=== PATIENT | female | born 1970 | race Caucasian/White ===

== ENCOUNTER 2017-01-26 19:18 | Emergency (ER) | payer BC ==
[2017-01-26] MEDS ORDERED: Ketorolac 60 MG/2 ML SDV IM ONE (19:37)
--- NOTE | 2017-01-26 19:42 | EDM.PDOC ---
ED HPI GENERAL MEDICAL PROBLEM - General Chief Complaint: Lower Extremity Injury/Pain Stated Complaint: PT HURT RT ANKLE Time Seen by Provider: 01/26/17 19:21 Source of Information: Reports: Patient History Limitations: Reports: No Limitations - History of Present Illness INITIAL COMMENTS - FREE TEXT/NARRATIVE: HISTORY AND PHYSICAL: History of present illness: Patient is a 46 show female who presents to the emergency room with complaints of right ankle pain. Review of systems: As per history of present illness and below otherwise all systems reviewed and negative. Past medical history: As per history of present illness and as reviewed below otherwise noncontributory. Surgical history: As per history of present illness and as reviewed below otherwise noncontributory. Social history: No reported history of drug or alcohol abuse. Family history: As per history of present illness and as reviewed below otherwise noncontributory. Physical exam: HEENT: Atraumatic, normocephalic, pupils reactive, negative for conjunctival pallor or scleral icterus, mucous membranes moist, throat clear, neck supple, nontender, trachea midline. Lungs: Clear to auscultation, breath sounds equal bilaterally, chest nontender. Heart: S1S2, regular, negative for clicks, rubs, or JVD. Abdomen: Soft, nondistended, nontender. Negative for masses or hepatosplenomegaly. Negative for costovertebral tenderness. Pelvis: Stable nontender. Genitourinary: Deferred. Rectal: Deferred. Extremities: Soft tissue swelling noted to the medial and lateral right ankle. Strong pedal pulse. Capillary refill is less than 3 seconds. Positive CMS. No foot drop. Negative for cords or calf pain. Neurovascular unremarkable. Neuro: Awake, alert, oriented. Cranial nerves II through XII unremarkable. Cerebellum unremarkable. Motor and sensory unremarkable throughout. Exam nonfocal. Patient has a transverse nondisplaced fracture seen through the distal tip of the fibula with correlated soft tissue swelling. Patient states she does have crutches at home, and will bring them in from the truck. Instructed patient to use a Cam Walker boot into a [id number] and use the crutches as directed. Will prescribe Woodbury 08/12/24 that she may take as needed for pain. Instructed her to follow-up with an orthopedist in the next week or so. Patient voices understanding and is agreeable to plan of care. Denies any further questions at this Diagnostics: X-ray right ankle Therapeutics: Toradol Impression: Distal fibula fracture Plan: 1. Please where the Cam Walker boot and use the crutches as directed. Rest, ice , elevate throughout the day. 2. Please take the Woodbury as directed, this may cause slight drowsiness so do not take it while driving or needing to be functioning at work. He may take Tylenol and/or ibuprofen for breakthrough pain. 3. Follow-up with Orthopedist in the next week. Return to the ED as needed as discussed. Definitive disposition and diagnosis as appropriate pending reevaluation and review of above. Onset: Today Right Ankle Pain Score (Numeric/FACES): 8 - Related Data Allergies Allergy/AdvReac Type Severity Reaction Status Date / Time No Known Allergies Allergy Verified 01/03/15 12:06 Home Meds: Home Meds Pantoprazole Sodium 40 mg PO DAILY 03/15/14 [History] Magnesium Hydroxide [Milk of Magnesia] 1 dose PO PRN 01/03/15 [History] Acetaminophen/HYDROcodone [Woodbury 325-10 MG] 1 - 2 tab PO Q4H PRN #80 tablet [Rx] Celecoxib 200 mg PO DAILY #60 capsule 01/09/15 [Rx] Docusate Sodium [Colace] 100 mg PO BID #60 cap 01/09/15 [Rx] Gabapentin [Neurontin] 300 mg PO BEDTIME #30 cap 01/09/15 [Rx] Rivaroxaban [Xarelto] 10 mg PO DAILY #12 tablet 01/09/15 [Rx] traMADol [Ultram] 100 mg PO Q6H PRN #80 tablet 01/09/15 [Rx] Past Medical History Other Respiratory History: Reports 20 yr history of smoking, current use 1/2 pack per day Other Dermatologic History: "Something on top of Right foot unsure if eczema or what" - Past Surgical History Other GI Surgeries/Procedures: Gastric Bypass, Lap Kathryn Other Musculoskeletal Surgeries/Procedures:: 2 knee arthroscopies, Repair meniscus or meniscectomy Rt, Right Total Knee Replacement, REvision Right Knee Replacement 05/2014 Social & Family History - Tobacco Use Smoking Status *Q: Current Every Day Smoker Years of Tobacco use: 20 Packs/Tins Daily: 0.5 Used Tobacco, but Quit: No Second Hand Smoke Exposure: No - Alcohol Use Days Per Week of Alcohol Use: 7 Number of Drinks Per Day: 1 Total Drinks Per Week: 7 - Recreational Drug Use Recreational Drug Use: No Drug Use in Last 12 Months: No Review of Systems - Review of Systems Review Of Systems: ROS reveals no pertinent complaints other than HPI. ED EXAM, GENERAL - Physical Exam Exam: See Below (See dictation) Course - Vital Signs Last Recorded V/S: Last Vital Signs Temp 36.8 C 01/26/17 19:34 Pulse 80 01/26/17 19:34 Resp 18 01/26/17 19:34 BP 179/90 H 01/26/17 19:34 Pulse Ox 98 01/26/17 19:34 - Orders/Labs/Meds Orders: Active Orders 24 hr Category Date Time Status Ankle Min 3V Rt [CR] Stat Exams 01/26/17 19:36 Taken DME for Discharge [COMM] Stat Oth 01/26/17 20:44 Ordered Meds: Medications Discontinued Medications Generic Name Dose Route Start Last Admin Trade Name Nell PRN Reason Stop Dose Admin Ketorolac Tromethamine 60 mg 01/26/17 19:37 01/26/17 19:43 Toradol IM 01/26/17 19:38 60 mg ONETIME ONE Administration Departure - Departure Time of Disposition: 20:46 Disposition: Home, Self-Care 01 Clinical Impression: Fibula fracture Qualifiers: Encounter type: initial encounter Fibula location: distal Fracture type: closed Fracture morphology: unspecified fracture morphology Laterality: right Qualified Code(s): S82.831A - Other fracture of upper and lower end of right fibula, initial encounter for closed fracture - Discharge Information Referrals: PCP,None [Primary Care Provider] - Forms: ED Department Discharge Additional Instructions: My general discharge The following information is given to patients seen in the emergency department who are being discharged to home. This information is to outline your options for follow-up care. We provide all patients seen in our emergency department with a follow-up referral. The need for follow-up, as well as the timing and circumstances, are variable depending upon the specifics of your emergency department visit. If you don't have a primary care physician on staff, we will provide you with a referral. We always advise you to contact your personal physician following an emergency department visit to inform them of the circumstance of the visit and for follow-up with them and/or the need for any referrals to a consulting specialist. The emergency department will also refer you to a specialist when appropriate. This referral assures that you have the opportunity for follow-up care with a specialist. All of these measure are taken in an effort to provide you with optimal care, which includes your follow-up. Under all circumstances we always encourage you to contact your private physician who remains a resource for coordinating your care. When calling for follow-up care, please make the office aware that this follow-up is from your recent emergency room visit. If for any reason you are refused follow-up, please contact the [facility] Emergency Department at and asked to speak to the emergency department charge nurse. [facility] [address], [address] [place] [address] 1. Please where the Cam Walker boot and use the crutches as directed. Rest, ice , elevate throughout the day. 2. Please take the [place] as directed, this may cause slight drowsiness so do not take it while driving or needing to be functioning at work. He may take Tylenol and/or ibuprofen for breakthrough pain. 3. Follow-up with Orthopedist in the next week for your ankle injury. Follow-up with the primary care provider in the next 1-2 days, you should have your blood pressure reevaluated. Return to the ED as needed as discussed. - My Orders Last 24 Hours: My Active Orders 01/26/17 19:36 Ankle Min 3V Rt [CR] Stat 01/26/17 20:44 DME for Discharge [COMM] Stat - Assessment/Plan Last 24 Hours: My Active Orders 01/26/17 19:36 Ankle Min 3V Rt [CR] Stat 01/26/17 20:44 DME for Discharge [COMM] Stat
[2017-01-26 21:53] VITALS: BP 185/85
--- NOTE | 2017-01-27 10:34 | CR ---
EXAM DATE: 01/26/17 PATIENT'S AGE: 46 Patient: LUISA HODGES Facility: [place], [place] Site . Site : 1970 Study: XRay Extremity ankle [id number] 8:04:39 PM Ordering Physician: Doctor Collier Final Report: HISTORY: Injury. FINDINGS: Three views of the right ankle demonstrates soft tissue swelling most prominent over the distal fibula. There is a transverse nondisplaced fracture seen through the inferior tip of the fibula. There are tiny well corticated ossific density is seen in part to the distal fibula and medial malleolus. These do not have the appearance of acute fracture fragments. The mortise and talar dome are intact. There is traction spurs at the plantar and Achilles aspect of calcaneus. Base of the 5th metatarsal is intact. IMPRESSION: 1. Transverse nondisplaced fracture seen through the distal tip of the fibula with adjacent soft tissue swelling. 2. Small well corticated ossific densities are seen inferior to the distal fibula and medial malleolus. These do not have the appearance of acute fracture fragment. Dictated by Norma Parnell MD @ 01/26/2017 8:32:10 PM Dictated by: Norma Parnell MD @ 01/26/2017 20:32:19 (Electronic Signature) Report Signed by Proxy. NILE
== END 2017-01-26 21:02 | disposition home or self-care (01) ==
LOC: MW.ED 19:18
DX: S82.831A Other fracture of upper and lower end of right fibula, initial encounter for closed fracture (principal); F17.210 Nicotine dependence, cigarettes, uncomplicated; Z96.651 Presence of right artificial knee joint; Z79.899 Other long term (current) drug therapy; X58.XXXA Exposure to other specified factors, initial encounter
CPT/HCPCS: 73610; 96372; 99283; J1885

== ENCOUNTER 2018-09-15 19:54 | Emergency (ER) | payer BC ==
--- NOTE | 2018-09-15 20:39 | EDM.PDOC ---
ED HPI GENERAL MEDICAL PROBLEM - General Chief Complaint: General Stated Complaint: PAIN LFT SIDE, COUGHING Time Seen by Provider: 09/15/18 20:36 - History of Present Illness INITIAL COMMENTS - FREE TEXT/NARRATIVE: HISTORY AND PHYSICAL: History of present illness: The patient is a 47-year-old female with a history of hypertension and pulmonary disease for which she uses a daily inhaler as well as has a rescue inhaler, the name of her chronic respiratory problem she is unaware of, who presents with cough on and off for several weeks sometimes spastic and not using any rescue inhaler. The patient says the cough is usually happy and occasionally productive of phlegm but there is no fever chills chest pain abdominal pain nausea vomiting or diarrhea. The patient denies . She says that she is here because she was coughing this evening at about 7 PM, about 2 hours ago, when she felt a sharp pain in her left rib area and she thought something popped. She says that she was getting pain in that particular area over the last 1-2 days but it became more severe with the coughing episode. She said that over the last few days every time she coughed she would feel pain in that location but it seemed to accelerate dramatically at 7 PM with the coughing fit. She did not take any medications for this pain prior to coming to the ED Patient ate and drank normally today and had no fevers or chills. She has no anterior left chest pain Review of systems: As per history of present illness and below otherwise all systems reviewed and negative. Past medical history: As per history of present illness and as reviewed below otherwise noncontributory. Surgical history: As per history of present illness and as reviewed below otherwise noncontributory. Social history: No reported history of drug or alcohol abuse. Family history: As per history of present illness and as reviewed below otherwise noncontributory. Physical exam: General: Well-developed well-nourished female who is nontoxic and vital signs are noted by me. She ambulated into the ED with a walker which she usually does not use but has at home due to knee problems and did not require assistance. When I ask her why she was using it she said that she felt like she could lean on it because she was concerned about the pain in her left side and being steady with walking. Patient's eyes were slightly injected HEENT: Atraumatic, normocephalic, negative for conjunctival pallor or scleral icterus, mucous membranes moist, throat clear, neck supple, nontender, trachea midline. Lungs: Clear to auscultation but very diminished in the bases bilaterally and not very open on area exchange but no wheezing or stridor or work of breathing, breath sounds equal bilaterally, chest wall on the left anterior axillary line in the lower ribs has a screw tenderness with palpation without defects deformities or crepitus. On palpation I can exactly reproduce the pain. Heart: S1S2, regular rate and rhythm no overt murmurs Abdomen: Soft, nondistended, nontender. Negative for masses or hepatosplenomegaly. NABS Pelvis: Stable nontender. Genitourinary: Deferred. Rectal: Deferred. Extremities: Atraumatic, negative for cords or calf pain. Neurovascular unremarkable. No pedal edema or leg asymmetry Neuro: Awake, alert, oriented. Cranial nerves II through XII unremarkable. Cerebellum unremarkable. Motor and sensory unremarkable throughout. Exam nonfocal. Diagnostics: Left ribs with chest x-ray, CBC CMP alcohol level EKG Therapeutics: IV fluids duo neb Solu-Medrol Toradol morphine potassium by mouth Impression: Persistent coughing/reactive airway disease equivalent, left chest wall pain strain, mild hypokalemia and recent alcohol use Definitive disposition and diagnosis as appropriate pending reevaluation and review of above. Left Chest Pain Score (Numeric/FACES): 9 - Related Data Allergies Allergy/AdvReac Type Severity Reaction Status Date / Time No Known Allergies Allergy Verified 09/15/18 20:17 Home Meds: Home Meds Glycopyrrolate/Formoterol Fum [Bevespi Aerosphere Inhaler] 1 puff ASDIRECTED [History] Lisinopril/Hydrochlorothiazide [Lisinopril-Hctz 20-12.5 mg Tab] 1 each PO DAILY 04/06/18 [History] Past Medical History HEENT History: Reports: None Cardiovascular History: Reports: Hypertension Other Respiratory History: Reports 20 yr history of smoking, current use 1/2 pack per day Gastrointestinal History: Reports: None Genitourinary History: Reports: None [employer] History: Reports: None Neurological History: Reports: None Endocrine/Metabolic History: Reports: None Other Dermatologic History: "Something on top of Right foot unsure if eczema or what" - Past Surgical History Other GI Surgeries/Procedures: Gastric Bypass, Lap Kathryn Female Surgical History: Reports: None Other Musculoskeletal Surgeries/Procedures:: 2 knee arthroscopies, Repair meniscus or meniscectomy Rt, Right Total Knee Replacement, REvision Right Knee Replacement 05/2014 Social & Family History - Family History Family Medical History: Noncontributory - Tobacco Use Smoking Status *Q: Current Every Day Smoker Years of Tobacco use: 30 Packs/Tins Daily: 0.5 - Caffeine Use Caffeine Use: Reports: Coffee - Alcohol Use Days Per Week of Alcohol Use: 7 Number of Drinks Per Day: 1 Total Drinks Per Week: 7 - Recreational Drug Use Recreational Drug Use: No ED ROS GENERAL - Review of Systems Review Of Systems: ROS reveals no pertinent complaints other than HPI. ED EXAM, GENERAL - Physical Exam Exam: See Below (See dictation) Course - Vital Signs Last Recorded V/S: Last Vital Signs Temp 35.6 C 09/15/18 20:11 Pulse 75 09/15/18 22:07 Resp 15 09/15/18 22:07 BP 120/69 09/15/18 22:07 Pulse Ox 96 09/15/18 22:07 - Orders/Labs/Meds Orders: Active Orders 24 hr Category Date Time Status Communication Order [RC] STAT Care 09/15/18 22:17 Ordered EKG Documentation Completion [RC] STAT Care 09/15/18 21:05 Active RT Aerosol Therapy [RC] ASDIRECTED Care 09/15/18 20:46 Active Sodium Chloride 0.9% [Saline Flush] Med 09/15/18 20:46 Active 10 ml FLUSH ASDIRECTED PRN Sodium Chloride 0.9% [Saline Flush] Med 09/15/18 20:46 Active 2.5 ml FLUSH ASDIRECTED PRN Saline Lock Insert [OM.PC] Stat Oth 09/15/18 20:45 Ordered Medication Orders Sodium Chloride (Saline Flush) 10 ml FLUSH ASDIRECTED PRN PRN Reason: Keep Vein Open Sodium Chloride (Saline Flush) 2.5 ml FLUSH ASDIRECTED PRN PRN Reason: Keep Vein Open Labs: Laboratory Tests 09/15/18 09/15/18 Range/Units 20:59 20:59 WBC 11.01 H (4.0-11.0) K/uL RBC 4.43 (4.30-5.90) M/uL Hgb 13.1 (12.0-16.0) g/dL Hct 38.7 (36.0-46.0) % MCV 87.4 (80.0-98.0) fL MCH 29.6 (27.0-32.0) pg MCHC 33.9 (31.0-37.0) g/dL RDW Std Deviation 55.3 (28.0-62.0) fl RDW Coeff of [place] 18 H (11.0-15.0) % Plt Count 323 (150-400) K/uL MPV 9.40 (7.40-12.00) fL Neut % (Auto) 61.5 (48.0-80.0) % Lymph % (Auto) 32.7 (16.0-40.0) % [place] % (Auto) 2.8 (0.0-15.0) % Eos % (Auto) 2.5 (0.0-7.0) % Baso % (Auto) 0.5 (0.0-1.5) % Neut # (Auto) 6.8 H (1.4-5.7) K/uL Lymph # (Auto) 3.6 H (0.6-2.4) K/uL [place] # (Auto) 0.3 (0.0-0.8) K/uL Eos # (Auto) 0.3 (0.0-0.7) K/uL Baso # (Auto) 0.1 (0.0-0.1) K/uL Nucleated RBC % 0.0 /100WBC Nucleated RBCs # 0 K/uL Sodium 130 L (136-145) mmol/L Potassium 2.9 L (3.5-5.1) mmol/L Chloride 93 L (98-107) mmol/L Carbon Dioxide 24.9 (21.0-32.0) mmol/L BUN 4 L (7.0-18.0) mg/dL Creatinine 0.6 (0.6-1.0) mg/dL Est Cr Clr Drug Dosing 95.88 mL/min Estimated GFR (MDRD) > 60.0 ml/min Glucose 111 H (74-106) mg/dL Calcium 9.1 (8.5-10.1) mg/dL Total Bilirubin 0.3 (0.2-1.0) mg/dL AST 84 H (15-37) IU/L ALT 92 H (14-63) IU/L Alkaline Phosphatase 144 H (46-116) U/L Total Protein 7.7 (6.4-8.2) g/dL Albumin 3.8 (3.4-5.0) g/dL Globulin 3.9 (2.6-4.0) g/dL Albumin/Globulin Ratio 1.0 (0.9-1.6) Ethyl Alcohol 145 mg/dL Meds: Medications Generic Name Dose Route Start Last Admin Trade Name Freq PRN Reason Stop Dose Admin Sodium Chloride 10 ml 09/15/18 20:46 Saline Flush FLUSH ASDIRECTED PRN Keep Vein Open Sodium Chloride 2.5 ml 09/15/18 20:46 Saline Flush FLUSH ASDIRECTED PRN Keep Vein Open Discontinued Medications Generic Name Dose Route Start Last Admin Trade Name Tonyq PRN Reason Stop Dose Admin Albuterol/Ipratropium 3 ml 09/15/18 20:46 09/15/18 20:55 Duoneb 3.0-0.5 Mg/3 Ml NEB 09/15/18 20:47 3 ml ONETIME ONE Administration Sodium Chloride 1,000 mls @ 999 mls/hr 09/15/18 20:46 09/15/18 21:01 Normal Saline IV 09/15/18 21:46 999 mls/hr STAT ONE Administration Ketorolac Tromethamine 30 mg 09/15/18 20:46 09/15/18 21:01 Toradol IVPUSH 09/15/18 20:47 30 mg ONETIME ONE Administration Methylprednisolone Sodium Succinate 125 mg 09/15/18 20:46 09/15/18 21:01 Solu-Medrol IVPUSH 09/15/18 20:47 125 mg ONETIME ONE Administration Morphine Sulfate 2 mg 09/15/18 20:46 09/15/18 21:01 Morphine IVPUSH 09/15/18 20:47 2 mg ONETIME ONE Administration Potassium Chloride 40 meq 09/15/18 21:42 09/15/18 22:03 Klor-Con M20 PO 09/15/18 21:43 40 meq ONETIME ONE Administration Departure - Departure Time of Disposition: 22:18 Disposition: Home, Self-Care 01 Condition: Good Clinical Impression: Chest wall pain, Cough - Discharge Information Referrals: Josef Ruggiero MD [Primary Care Provider] - Forms: ED Department Discharge Additional Instructions: The following information is given to patients seen in the emergency department who are being discharged to home. This information is to outline your options for follow-up care. We provide all patients seen in our emergency department with a follow-up referral. The need for follow-up, as well as the timing and circumstances, are variable depending upon the specifics of your emergency department visit. If you don't have a primary care physician on staff, we will provide you with a referral. We always advise you to contact your personal physician following an emergency department visit to inform them of the circumstance of the visit and for follow-up with them and/or the need for any referrals to a consulting specialist. The emergency department will also refer you to a specialist when appropriate. This referral assures that you have the opportunity for followup care with a specialist. All of these measure are taken in an effort to provide you with optimal care, which includes your followup. Under all circumstances we always encourage you to contact your private physician who remains a resource for coordinating your care. When calling for followup care, please make the office aware that this follow-up is from your recent emergency room visit. If for any reason you are refused follow-up, please contact the [facility] emergency department at and ask to speak to the emergency department charge nurse. [facility]- Internal Medicine [place] [address] Push hydration and avoid alcohol as this may complicate your pain management. Please use your rescue inhaler that you have at home with a spacer you have been given here in the ED every 6 hours for the next 24 hours and then as needed for coughing or shortness of breath. Use pain medication as you have been given here from the ED and you can also add [id number] Tylenol and ibuprofen as you choose been given a prescription for potassium which she must take tomorrow as your potassium level is slightly low and he will need to eat more potassium-rich foods such as bananas and whole gr. Please also take the prednisone as you have been given as this will help with the spastic cough. Please call and schedule a follow-up appointment in the clinic and return to ER as needed and as discussed. You have been given Ultram/tramadol and Flexeril from [facility] - My Orders Last 24 Hours: My Active Orders 09/15/18 20:45 Saline Lock Insert [OM.PC] Stat 09/15/18 20:46 RT Aerosol Therapy [RC] ASDIRECTED Sodium Chloride 0.9% [Saline Flush] 10 ml FLUSH ASDIRECTED PRN Sodium Chloride 0.9% [Saline Flush] 2.5 ml FLUSH ASDIRECTED PRN 09/15/18 21:05 EKG Documentation Completion [RC] STAT 09/15/18 22:17 Communication Order [RC] STAT - Assessment/Plan Last 24 Hours: My Active Orders 09/15/18 20:45 Saline Lock Insert [OM.PC] Stat 09/15/18 20:46 RT Aerosol Therapy [RC] ASDIRECTED Sodium Chloride 0.9% [Saline Flush] 10 ml FLUSH ASDIRECTED PRN Sodium Chloride 0.9% [Saline Flush] 2.5 ml FLUSH ASDIRECTED PRN 09/15/18 21:05 EKG Documentation Completion [RC] STAT 09/15/18 22:17 Communication Order [RC] STAT
[2018-09-15] MEDS ORDERED: Sodium Chloride 0.9% 10 ML Syringe FLUSH PRN (20:46)
[2018-09-15] MEDS ORDERED: Sodium Chloride 0.9% 1,000 ML IV ONE (20:46)
[2018-09-15] MEDS ORDERED: Ketorolac 30 MG/ML SDV IVPUSH ONE (20:46)
[2018-09-15] MEDS ORDERED: Sodium Chloride 0.9% 2.5 ML Syringe FLUSH PRN (20:46)
[2018-09-15] MEDS ORDERED: Albuterol/Ipratropium 3.0-0.5 MG/3 ML Neb Soln NEB ONE (20:46)
[2018-09-15] MEDS ORDERED: Morphine 2 MG/ML Syringe IVPUSH ONE (20:46)
[2018-09-15] MEDS ORDERED: methylPREDNISolone Sodium Succinate 125 MG/2 ML SDV IVPUSH ONE (20:46)
[2018-09-15 21:35] LABS: CHLORIDE,CL 93 mmol/L (98-107); SODIUM,NA 130 mmol/L (136-145)
[2018-09-15] MEDS ORDERED: Potassium Chloride 20 MEQ Tab.ER PO ONE (21:42)
--- NOTE | 2018-09-15 21:59 | CR ---
INDICATION: Left lower posterior rib pain TECHNIQUE: Chest and left ribs 3 views. COMPARISON: None FINDINGS: Cardiovascular and mediastinum: Heart size and vasculature are normal in caliber and appearance. Mediastinum is within normal limits. Lungs and pleural spaces: Lungs are clear. No sign of infiltrate or mass. No sign of pleural effusion. No pneumothorax. Bones and soft tissues: Detailed oblique images of the left ribs demonstrate no fractures or bone lesions. IMPRESSION: Unremarkable chest and left ribs. Dictated by Fabrice Lujan MD @ 09/15/2018 9:56:57 PM Dictated by: Fabrice Lujan MD @ 09/15/2018 21:57:03 (Electronically Signed)
[2018-09-15 22:26] VITALS: BP 121/64
== END 2018-09-15 22:37 | disposition home or self-care (01) ==
LOC: MW.ED 19:54
DX: S29.011A Strain of muscle and tendon of front wall of thorax, initial encounter (principal); E87.6 Hypokalemia; I10 Essential (primary) hypertension; X58.XXXA Exposure to other specified factors, initial encounter
CPT/HCPCS: 36415; 71101; 80053; 85025; 93005; 94640; 96361; 96374; 96375; 99284; A9270; G0480; J1885; J2270; J2930; J7040; 99283; J7620-GY

== ENCOUNTER 2019-02-08 10:02 | Inpatient (IN) | payer BC ==
[2019-02-08] MEDS ORDERED: Morphine 2 MG/ML Syringe IVPUSH PRN (17:46)
[2019-02-08] MEDS ORDERED: Albuterol/Ipratropium 3.0-0.5 MG/3 ML Neb Soln NEB PRN (17:46)
[2019-02-08] MEDS ORDERED: Ondansetron 4 MG/2 ML SDV IVPUSH PRN (17:46)
[2019-02-08] MEDS ORDERED: Ondansetron 4 MG Tab.DIS PO PRN (17:46)
[2019-02-08] MEDS ORDERED: Sodium Chloride 0.9% 1,000 ML IV ONE (17:51)
[2019-02-08] MEDS ORDERED: Potassium Chloride 20 MEQ Tab.ER PO ONE (17:52)
[2019-02-08] MEDS ORDERED: Magnesium Sulfate/Water 2 GM in Premix Bag 1 BAG IV ONE (17:56)
[2019-02-08] MEDS ORDERED: methylPREDNISolone Sodium Succinate 125 MG/2 ML SDV IVPUSH SCH (18:00)
--- NOTE | 2019-02-08 18:02 | PCM.HP.2 ---
H&P History of Present Illness - General Date of Service: 02/08/19 Admit Problem/Dx: Admission Diagnosis/Problem Admission Diagnosis/Problem Community acquired pneumonia - History of Present Illness Initial Comments - Free Text/Narative: 48 y/o female with history of COPD who was a direct admit from PCP's clinic. Patient states she had been seen about 2 weeks ago for shortness of breath, cough. Prescribed antibiotics which she finished. Does not recall name of antibiotic. However, has not been improving since then. Still having worsening shortness of breath, non productive cough, subjective fevers. Has been using her rescue inhaler more often. States that there is minimal improvement with rescue inhaler. denies any chest pain, hemoptysis. No abdominal pain, dysuria, diarrhea. No worsening lower extremity edema. States that she has been taking her meds as indicated. In clinic, she was found to be hypoxic at room air. WBC 15, K 3.2, Na 128. Has been having poor appetite and poor hydration in the past few days. Chest xray showed diffuse interstitial pneumonia. Smokes 1 ppd. Denies vaping. Occasional alcohol. No known allergies. - Related Data Allergies/Adverse Reactions: Allergies Allergy/AdvReac Type Severity Reaction Status Date / Time No Known Allergies Allergy Verified 09/15/18 20:17 Home Medications: Home Meds Glycopyrrolate/Formoterol Fum [Bevespi Aerosphere Inhaler] 1 puff ASDIRECTED [History] Lisinopril/Hydrochlorothiazide [Lisinopril-Hctz 20-12.5 mg Tab] 1 each PO DAILY 04/06/18 [History] Past Medical History HEENT History: Reports: None Cardiovascular History: Reports: Hypertension Other Respiratory History: Reports 20 yr history of smoking, current use 1/2 pack per day Gastrointestinal History: Reports: None Genitourinary History: Reports: None [employer] History: Reports: Neurological History: Reports: None Endocrine/Metabolic History: Reports: None Other Dermatologic History: "Something on top of Right foot unsure if eczema or what" - Past Surgical History Other GI Surgeries/Procedures: Gastric Bypass, Lap Kathryn Female Surgical History: Reports: None Other Musculoskeletal Surgeries/Procedures:: 2 knee arthroscopies, Repair meniscus or meniscectomy Rt, Right Total Knee Replacement, REvision Right Knee Replacement 05/2014 Social & Family History - Family History Family Medical History: Noncontributory - Tobacco Use Smoking Status *Q: Current Every Day Smoker Years of Tobacco use: 20 Packs/Tins Daily: 0.5 Used Tobacco, but Quit: No Month/Year Tobacco Last Used: 02.08.19 Second Hand Smoke Exposure: Yes - Caffeine Use Caffeine Use: Reports: Coffee, Tea - Alcohol Use Date of Last Drink: 02/07/19 - Recreational Drug Use Recreational Drug Use: No H&P Review of Systems - Review of Systems: Review Of Systems: ROS reveals no pertinent complaints other than HPI. Exam - Exam Exam: See Below - Vital Signs Vital Signs: Last Vital Signs Temp 35.9 C 02/08/19 17:15 Pulse 103 H 02/08/19 17:15 Resp 28 H 02/08/19 17:15 BP 105/62 02/08/19 17:15 Pulse Ox 91 L 02/08/19 17:15 Weight: 100.839 kg - Exam Quality Assessment: Supplemental Oxygen General: Alert, Oriented, Cooperative HEENT: Other (dry oral mucosa) Lungs: Other (decreased breath sounds bilaterally. No crackles or wheezing. feels tight.) Cardiovascular: Regular Rate, Regular Rhythm GI/Abdominal Exam: Normal Bowel Sounds, Soft, Non-Tender, No Distention Extremities: Normal Inspection, Non-Tender, Pedal Edema Skin: Warm, Dry Neuro Extensive - Mental Status: Alert, Oriented x3 - Patient Data Lab Results Last 24 hrs: Laboratory Results - last 24 hr 02/08/19 Range/Units 15:59 Magnesium 1.4 L (1.8-2.4) mg/dL Problem List Initiated/Reviewed/Updated: Yes Orders Last 24hrs: Active Orders 24 hr Category Date Time Status Patient Status [ADT] Routine ADT 02/08/19 17:46 Active Intake and Output [RC] QSHIFT Care 02/08/19 17:47 Active Oxygen Therapy [RC] PRN Care 02/08/19 17:46 Active RT Aerosol Therapy [RC] ASDIRECTED Care 02/08/19 17:49 Active Up ad Adore [RC] ASDIRECTED Care 02/08/19 17:46 Active VTE/DVT Education [RC] PER UNIT ROUTINE Care 02/08/19 17:46 Active Vital Signs [RC] Q4H Care 02/08/19 17:46 Active Regular Diet [DIET] Diet 02/08/19 Dinner Active Regular Diet [DIET] Diet 02/08/19 Dinner Active B-TYPE NATRIURETIC PEPTIDE,BNP [CHEM] Routine Lab 02/08/19 17:54 Ordered CBC WITH AUTO DIFF [HEME] AM Lab 02/09/19 05:11 Ordered CBC WITH AUTO DIFF [HEME] AM Lab 02/10/19 05:11 Ordered CBC WITH AUTO DIFF [HEME] AM Lab 02/11/19 05:11 Ordered COMPREHENSIVE METABOLIC PN,CMP [CHEM] AM Lab 02/09/19 05:11 Ordered COMPREHENSIVE METABOLIC PN,CMP [CHEM] AM Lab 02/10/19 05:11 Ordered COMPREHENSIVE METABOLIC PN,CMP [CHEM] AM Lab 02/11/19 05:11 Ordered LEGIONELLA ANTIGEN [MREF] Routine Lab 02/08/19 17:58 Ordered STREP PNEUMONIAE ANTIGEN [MREF] Routine Lab 02/08/19 17:58 Ordered Acetaminophen [Tylenol] Med 02/08/19 17:46 Active 650 mg PO Q4H PRN Acetaminophen/HYDROcodone [[place] 325-5 MG] Med 02/08/19 17:46 Active 1 tab PO Q4H PRN Albuterol/Ipratropium [DuoNeb 3.0-0.5 MG/3 ML] Med 02/08/19 17:46 Active 3 ml NEB Q4HRRT PRN Azithromycin [Zithromax] 500 mg Med 02/08/19 18:00 Active Sodium Chloride 0.9% [Normal Saline (AdvBag)] 250 ml IV DAILY Codeine/guaiFENesin [Robitussin AC] Med 02/08/19 18:00 Active 5 ml PO Q6H PRN Enoxaparin [Lovenox] Med 02/08/19 18:00 Active 40 mg SUBCUT Q24H Ketorolac [Toradol] Med 02/08/19 17:46 Ordered 15 mg IM Q6H PRN Magnesium Sulfate/Water [Magnesium Sulfate in Water Med 02/08/19 17:56 Active Premix] 2 gm Premix Bag 1 bag IV ONETIME Morphine Med 02/08/19 17:46 Active 2 mg IVPUSH Q2H PRN Nicotine [Habitrol] Med 02/09/19 09:00 Active 14 mg TRDERM DAILY Ondansetron [Zofran ODT] Med 02/08/19 17:46 Active 4 mg PO Q4H PRN Ondansetron [Zofran] Med 02/08/19 17:46 Active 4 mg IVPUSH Q4H PRN Sodium Chloride 0.9% [Normal Saline] 1,000 ml Med 02/08/19 17:51 Active IV STAT Sodium Chloride 0.9% [Normal Saline] 1,000 ml Med 02/08/19 18:00 Active IV STAT cefTRIAXone [Rocephin in Dextrose,Iso-Osm 1 GM/50 ML] 1 Med 02/08/19 18:00 Active gm Premix Bag 1 bag IV Q24H methylPREDNISolone Sod Succ [Solu-MEDROL] Med 02/08/19 18:00 Active 125 mg IVPUSH DAILY Resuscitation Status Routine Resus Stat 02/08/19 17:46 Ordered Medication Orders Acetaminophen (Tylenol) 650 mg PO Q4H PRN PRN Reason: Pain (Mild 1-3)/fever Hydrocodone Bitart/Acetaminophen ([place] 325-5 Mg) 1 tab PO Q4H PRN PRN Reason: Pain (moderate 4-6) Albuterol/Ipratropium (Duoneb 3.0-0.5 Mg/3 Ml) 3 ml NEB Q4HRRT PRN PRN Reason: Shortness Of Breath/wheezing Enoxaparin Sodium (Lovenox) 40 mg SUBCUT Q24H KAMERON Guaifenesin/Codeine Phosphate (Robitussin Ac) 5 ml PO Q6H PRN PRN Reason: Cough Azithromycin 500 mg/ Sodium (Chloride) 250 mls @ 250 mls/hr IV DAILY KAMERON Ceftriaxone Sodium/Dextrose 1 (gm/ Premix) 50 mls @ 100 mls/hr IV Q24H KAMERON Sodium Chloride (Normal Saline) 1,000 mls @ 999 mls/hr IV STAT ONE Stop: 02/08/19 18:51 Sodium Chloride (Normal Saline) 1,000 mls @ 125 mls/hr IV STAT KAMERON Magnesium Sulfate 2 gm/ Premix 50 mls @ 25 mls/hr IV ONETIME ONE Stop: 02/08/19 19:55 Ketorolac Tromethamine (Toradol) 15 mg IM Q6H PRN PRN Reason: Pain (moderate 4-6) Methylprednisolone Sodium Succinate (Solu-Medrol) 125 mg IVPUSH DAILY KAMERON Morphine Sulfate (Morphine) 2 mg IVPUSH Q2H PRN PRN Reason: Pain (severe 7-10) Stop: 02/09/19 17:48 Nicotine (Habitrol) 14 mg TRDERM DAILY KAMERON Ondansetron HCl (Zofran Odt) 4 mg PO Q4H PRN PRN Reason: nausea, able to take PO Ondansetron HCl (Zofran) 4 mg IVPUSH Q4H PRN PRN Reason: Nausea Assessment/Plan Comment:: A: 1. Community acquired pneumonia 2. Hypokalemia 3. Hypomagnesemia 4. Hyponatremia 5. Leukocytosis 6. PMH COPD, sleep apnea, hypertension P: 1. CAP- will treat with ceftriaxone 1 g IV Q24H and Azithromycin 500 mg IV daily. Duonebs PRN. Methylprednisolone 125 mg IV daily. Titrate NC goal O2 88-94 % 2. Hyponatremia- will hydrate with IV NS. Recheck tomorrow. 3. Hypokalemia- replace with KCl 40 mEq PO once. Recheck tomorrow. 4. Hypomagnesemia- replace with MgS 2 g IV once. Recheck tomorrow. 5. PMH COPD, sleep apnea, hypertension- will resume home meds. Dispo: 1-2 days.
[2019-02-08] MEDS: Ketorolac 30 MG/ML SDV IM PRN (18:22)
[2019-02-08] MEDS: cefTRIAXone 1 GM in Premix Bag 1 BAG IV SCH (18:27)
[2019-02-08] MEDS: Enoxaparin 40 MG/0.4 ML Syringe SUBCUT SCH (18:38)
[2019-02-08] MEDS: Azithromycin 500 MG in Sodium Chloride 0.9% 250 ML IV SCH (19:33)
[2019-02-08] MEDS: Codeine/guaiFENesin 100-10 MG/5 ML Syrup 5 ML Cup PO PRN (20:47)
[2019-02-08] MEDS: Sodium Chloride 0.9% 1,000 ML IV SCH (20:48)
[2019-02-08] MEDS ORDERED: methylPREDNISolone Sodium Succinate 1,000 MG/8 ML SDV IV SCH (21:00)
[2019-02-08] MEDS: Albuterol/Ipratropium 3.0-0.5 MG/3 ML Neb Soln NEB SCH (21:33)
[2019-02-08] MEDS: Acetaminophen 325 MG Tab PO PRN (23:07)
[2019-02-09] MEDS: Codeine/guaiFENesin 100-10 MG/5 ML Syrup 5 ML Cup PO PRN ×4 (02:37→21:37)
[2019-02-09] MEDS: Albuterol/Ipratropium 3.0-0.5 MG/3 ML Neb Soln NEB SCH ×6 (02:37→21:12)
[2019-02-09] MEDS: Ketorolac 30 MG/ML SDV IM PRN (02:41)
[2019-02-09] MEDS: Sodium Chloride 0.9% 1,000 ML IV SCH ×3 (04:44→21:43)
[2019-02-09 06:42] LABS: BLOOD UREA NITROGEN,BUN 6 mg/dL (7.0-18.0); CARBON DIOXIDE,CO2 29.3 mmol/L (21.0-32.0); CHLORIDE,CL 88 mmol/L (98-107); GLUCOSE RANDOM 113 mg/dL (74-106); POTASSIUM,K 3.1 mmol/L (3.5-5.1); SODIUM,NA 127 mmol/L (136-145)
[2019-02-09] MEDS ORDERED: Potassium Chloride 20 MEQ Tab.ER PO SCH (08:00)
[2019-02-09] MEDS ORDERED: methylPREDNISolone Sodium Succinate 40 MG/1 ML SDV IVPUSH SCH (08:00)
[2019-02-09] MEDS: Nicotine 14 MG/24 Hr Patch TRDERM SCH (08:14)
[2019-02-09] MEDS: Omeprazole 20 MG Cap.CR PO SCH (08:14)
[2019-02-09] MEDS: Acetaminophen 325 MG Tab PO PRN (08:15)
[2019-02-09] MEDS: Azithromycin 500 MG in Sodium Chloride 0.9% 250 ML IV SCH (08:20)
[2019-02-09] MEDS ORDERED: Lisinopril 10 MG Tab PO SCH (09:00)
[2019-02-09] MEDS ORDERED: Hydrochlorothiazide 12.5 MG Cap PO SCH (09:00)
[2019-02-09] MEDS: Ketorolac 30 MG/ML SDV IVPUSH PRN ×3 (09:37→21:41)
--- NOTE | 2019-02-09 11:46 | PCM.PN ---
- General Info Date of Service: 02/09/19 Subjective Update: 48 y/o female admitted for interstitial pneumonia on ceftriaxone and azithromycin. No acute events overnight. Has remained afebrile but still requiring supplemental O2 at 1-2 L NC. Denies any chest pain but still feels her lungs tight. No abdominal pain, dysuria, diarrhea. - Patient Data Vitals - Most Recent: Last Vital Signs Temp 36.2 C 02/09/19 08:00 Pulse 77 02/09/19 08:00 Resp 18 02/09/19 08:00 BP 140/63 02/09/19 08:00 Pulse Ox 93 L 02/09/19 08:00 Weight - Most Recent: 100.839 kg I&O - Last 24 Hours: Intake & Output 02/08/19 02/09/19 02/09/19 22:59 06:59 14:59 Intake Total 1350 2817 250 Output Total 1300 Balance 1350 1517 250 Lab Results Last 24 Hours: Laboratory Results - last 24 hr 02/08/19 02/08/19 02/08/19 Range/Units 15:59 15:59 21:05 WBC (4.0-11.0) K/uL RBC (4.30-5.90) M/uL Hgb (12.0-16.0) g/dL Hct (36.0-46.0) % MCV (80.0-98.0) fL MCH (27.0-32.0) pg MCHC (31.0-37.0) g/dL RDW Std Deviation (28.0-62.0) fl RDW Coeff of [place] (11.0-15.0) % Plt Count (150-400) K/uL MPV (7.40-12.00) fL Neut % (Auto) (48.0-80.0) % Lymph % (Auto) (16.0-40.0) % [place] % (Auto) (0.0-15.0) % Eos % (Auto) (0.0-7.0) % Baso % (Auto) (0.0-1.5) % Neut # (Auto) (1.4-5.7) K/uL Lymph # (Auto) (0.6-2.4) K/uL [place] # (Auto) (0.0-0.8) K/uL Eos # (Auto) (0.0-0.7) K/uL Baso # (Auto) (0.0-0.1) K/uL Nucleated RBC % /100WBC Nucleated RBCs # K/uL ABG pH 7.549 H (7.35-7.45) ABG pCO2 35 (35-45) mmHG ABG pO2 70 L (75-100) mmHG ABG HCO3 31 H (22-26) mEq/L ABG Total CO2 27.4 ABG Base Excess 7.8 H (-2.0-2.0) Sodium (136-145) mmol/L Potassium (3.5-5.1) mmol/L Chloride (98-107) mmol/L Carbon Dioxide (21.0-32.0) mmol/L BUN (7.0-18.0) mg/dL Creatinine (0.6-1.0) mg/dL Est Cr Clr Drug Dosing mL/min Estimated GFR (MDRD) ml/min Glucose (74-106) mg/dL Calcium (8.5-10.1) mg/dL Magnesium 1.4 L (1.8-2.4) mg/dL Total Bilirubin (0.2-1.0) mg/dL GGT (5-85) U/L AST (15-37) IU/L ALT (14-63) IU/L Alkaline Phosphatase (46-116) U/L B-Natriuretic Peptide 5 (<100) PG/ML Total Protein (6.4-8.2) g/dL Albumin (3.4-5.0) g/dL Globulin (2.6-4.0) g/dL Albumin/Globulin Ratio (0.9-1.6) Triglycerides (0-200) mg/dL Cholesterol (50-200) mg/dL LDL Cholesterol, Calc (60-180) mg/dL VLDL Cholesterol (5-55) mg/dL HDL Cholesterol (40-60) mg/dL Cholesterol/HDL Ratio (3.3-6.0) TSH 3rd Generation (0.36-3.74) uIU/mL 02/09/19 02/09/19 02/09/19 Range/Units 06:03 06:03 06:03 WBC 14.98 H (4.0-11.0) K/uL RBC 3.49 L (4.30-5.90) M/uL Hgb 11.3 L (12.0-16.0) g/dL Hct 32.3 L (36.0-46.0) % MCV 92.6 (80.0-98.0) fL MCH 32.4 H (27.0-32.0) pg MCHC 35.0 (31.0-37.0) g/dL RDW Std Deviation 48.8 (28.0-62.0) fl RDW Coeff of [place] 15 (11.0-15.0) % Plt Count 328 (150-400) K/uL MPV 9.30 (7.40-12.00) fL Neut % (Auto) 82.0 H (48.0-80.0) % Lymph % (Auto) 16.0 (16.0-40.0) % [place] % (Auto) 1.5 (0.0-15.0) % Eos % (Auto) 0.3 (0.0-7.0) % Baso % (Auto) 0.2 (0.0-1.5) % Neut # (Auto) 12.3 H (1.4-5.7) K/uL Lymph # (Auto) 2.4 (0.6-2.4) K/uL [place] # (Auto) 0.2 (0.0-0.8) K/uL Eos # (Auto) 0.1 (0.0-0.7) K/uL Baso # (Auto) 0.0 (0.0-0.1) K/uL Nucleated RBC % 0.0 /100WBC Nucleated RBCs # 0 K/uL ABG pH (7.35-7.45) ABG pCO2 (35-45) mmHG ABG pO2 (75-100) mmHG ABG HCO3 (22-26) mEq/L ABG Total CO2 ABG Base Excess (-2.0-2.0) Sodium 127 L (136-145) mmol/L Potassium 3.1 L (3.5-5.1) mmol/L Chloride 88 L (98-107) mmol/L Carbon Dioxide 29.3 (21.0-32.0) mmol/L BUN 6 L (7.0-18.0) mg/dL Creatinine 0.8 (0.6-1.0) mg/dL Est Cr Clr Drug Dosing 71.14 mL/min Estimated GFR (MDRD) > 60.0 ml/min Glucose 113 H (74-106) mg/dL Calcium 7.4 L (8.5-10.1) mg/dL Magnesium 2.0 (1.8-2.4) mg/dL Total Bilirubin 0.7 (0.2-1.0) mg/dL GGT (5-85) U/L AST 63 H (15-37) IU/L ALT 52 (14-63) IU/L Alkaline Phosphatase 190 H (46-116) U/L B-Natriuretic Peptide (<100) PG/ML Total Protein 6.6 (6.4-8.2) g/dL Albumin 2.8 L (3.4-5.0) g/dL Globulin 3.8 (2.6-4.0) g/dL Albumin/Globulin Ratio 0.7 L (0.9-1.6) Triglycerides 106 (0-200) mg/dL Cholesterol 155 (50-200) mg/dL LDL Cholesterol, Calc 103 (60-180) mg/dL VLDL Cholesterol 21 (5-55) mg/dL HDL Cholesterol 31 L (40-60) mg/dL Cholesterol/HDL Ratio 5.0 (3.3-6.0) TSH 3rd Generation (0.36-3.74) uIU/mL 02/09/19 02/09/19 Range/Units 06:07 06:07 WBC (4.0-11.0) K/uL RBC (4.30-5.90) M/uL Hgb (12.0-16.0) g/dL Hct (36.0-46.0) % MCV (80.0-98.0) fL MCH (27.0-32.0) pg MCHC (31.0-37.0) g/dL RDW Std Deviation (28.0-62.0) fl RDW Coeff of [place] (11.0-15.0) % Plt Count (150-400) K/uL MPV (7.40-12.00) fL Neut % (Auto) (48.0-80.0) % Lymph % (Auto) (16.0-40.0) % [place] % (Auto) (0.0-15.0) % Eos % (Auto) (0.0-7.0) % Baso % (Auto) (0.0-1.5) % Neut # (Auto) (1.4-5.7) K/uL Lymph # (Auto) (0.6-2.4) K/uL [place] # (Auto) (0.0-0.8) K/uL Eos # (Auto) (0.0-0.7) K/uL Baso # (Auto) (0.0-0.1) K/uL Nucleated RBC % /100WBC Nucleated RBCs # K/uL ABG pH (7.35-7.45) ABG pCO2 (35-45) mmHG ABG pO2 (75-100) mmHG ABG HCO3 (22-26) mEq/L ABG Total CO2 ABG Base Excess (-2.0-2.0) Sodium (136-145) mmol/L Potassium (3.5-5.1) mmol/L Chloride (98-107) mmol/L Carbon Dioxide (21.0-32.0) mmol/L BUN (7.0-18.0) mg/dL Creatinine (0.6-1.0) mg/dL Est Cr Clr Drug Dosing mL/min Estimated GFR (MDRD) ml/min Glucose (74-106) mg/dL Calcium (8.5-10.1) mg/dL Magnesium (1.8-2.4) mg/dL Total Bilirubin (0.2-1.0) mg/dL GGT 633 H (5-85) U/L AST (15-37) IU/L ALT (14-63) IU/L Alkaline Phosphatase (46-116) U/L B-Natriuretic Peptide (<100) PG/ML Total Protein (6.4-8.2) g/dL Albumin (3.4-5.0) g/dL Globulin (2.6-4.0) g/dL Albumin/Globulin Ratio (0.9-1.6) Triglycerides (0-200) mg/dL Cholesterol (50-200) mg/dL LDL Cholesterol, Calc (60-180) mg/dL VLDL Cholesterol (5-55) mg/dL HDL Cholesterol (40-60) mg/dL Cholesterol/HDL Ratio (3.3-6.0) TSH 3rd Generation 1.01 (0.36-3.74) uIU/mL Oziel Results Last 24 Hours: Microbiology 02/08/19 21:00 Gram Stain - Preliminary Sputum - Expectorated Med Orders - Current: Current Medications Acetaminophen (Tylenol) 650 mg PO Q4H PRN PRN Reason: Pain (Mild 1-3)/fever Last Admin: 02/09/19 08:15 Dose: 650 mg Hydrocodone Bitart/Acetaminophen ([place] 325-5 Mg) 1 tab PO Q4H PRN PRN Reason: Pain (moderate 4-6) Albuterol/Ipratropium (Duoneb 3.0-0.5 Mg/3 Ml) 3 ml NEB Q4HRRT [facility] Last Admin: 02/09/19 09:52 Dose: 3 ml Enoxaparin Sodium (Lovenox) 40 mg SUBCUT Q24H [facility] Last Admin: 02/08/19 18:38 Dose: 40 mg Guaifenesin/Codeine Phosphate (Robitussin Ac) 5 ml PO Q6H PRN PRN Reason: Cough Last Admin: 02/09/19 09:34 Dose: 5 ml Azithromycin 500 mg/ Sodium (Chloride) 250 mls @ 250 mls/hr IV DAILY [facility] Last Admin: 02/09/19 08:20 Dose: 250 mls/hr Ceftriaxone Sodium/Dextrose 1 (gm/ Premix) 50 mls @ 100 mls/hr IV Q24H [facility] Last Admin: 02/08/19 18:27 Dose: 100 mls/hr Sodium Chloride (Normal Saline) 1,000 mls @ 125 mls/hr IV ASDIRECTED [facility] Ketorolac Tromethamine (Toradol) 15 mg IVPUSH Q6H PRN PRN Reason: Pain (moderate 4-6) Last Admin: 02/09/19 09:37 Dose: 15 mg Methylprednisolone Sodium Succinate (Solu-Medrol) 40 mg IVPUSH Q8H [facility] Morphine Sulfate (Morphine) 2 mg IVPUSH Q2H PRN PRN Reason: Pain (severe 7-10) Stop: 02/09/19 17:48 Nicotine (Habitrol) 14 mg TRDERM DAILY [facility] Last Admin: 02/09/19 08:14 Dose: 14 mg Omeprazole (Omeprazole) 20 mg PO DAILY [facility] Last Admin: 02/09/19 08:14 Dose: 20 mg Ondansetron HCl (Zofran Odt) 4 mg PO Q4H PRN PRN Reason: nausea, able to take PO Ondansetron HCl (Zofran) 4 mg IVPUSH Q4H PRN PRN Reason: Nausea Potassium Chloride (Potassium Chloride) 40 meq PO ONETIME ONE Stop: 02/09/19 12:01 Discontinued Medications Albuterol/Ipratropium (Duoneb 3.0-0.5 Mg/3 Ml) 3 ml NEB Q4HRRT PRN PRN Reason: Shortness Of Breath/wheezing Hydrochlorothiazide (Hydrochlorothiazide) 12.5 mg PO DAILY [facility] Sodium Chloride (Normal Saline) 1,000 mls @ 999 mls/hr IV STAT ONE Stop: 02/08/19 18:51 Last Admin: 02/08/19 18:20 Dose: 999 mls/hr Sodium Chloride (Normal Saline) 1,000 mls @ 125 mls/hr IV STAT [facility] Last Admin: 02/09/19 04:44 Dose: 125 mls/hr Magnesium Sulfate 2 gm/ Premix 50 mls @ 25 mls/hr IV ONETIME ONE Stop: 02/08/19 19:55 Last Admin: 02/08/19 20:48 Dose: 25 mls/hr Ketorolac Tromethamine (Toradol) 15 mg IM Q6H PRN PRN Reason: Pain (moderate 4-6) Last Admin: 02/09/19 02:41 Dose: 15 mg Lisinopril (Prinivil) 20 mg PO DAILY [facility] Methylprednisolone Sodium Succinate (Solu-Medrol) 125 mg IVPUSH DAILY [facility] Last Admin: 02/08/19 18:25 Dose: 125 mg Methylprednisolone Sodium Succinate (Solu-Medrol) 40 mg IV BID [facility] Methylprednisolone Sodium Succinate (Solu-Medrol) 40 mg IVPUSH Q12H [facility] Last Admin: 02/09/19 07:49 Dose: 40 mg Potassium Chloride (Klor-Con M20) 40 meq PO ONETIME ONE Stop: 02/08/19 17:53 Last Admin: 02/08/19 18:21 Dose: 40 meq Potassium Chloride (Klor-Con M20) 40 meq PO Q4H [facility] Stop: 02/09/19 12:01 Last Admin: 02/09/19 08:14 Dose: 40 meq - Exam Quality Assessment: Supplemental Oxygen General: Alert, Oriented, Cooperative Lungs: Other (decreased inspiratory and expiratory lung sounds bilaterally. Mild wheezing bilaterally. No crackles. Sounds tight.) Cardiovascular: Regular Rate, Regular Rhythm GI/Abdominal Exam: Normal Bowel Sounds, Soft, Non-Tender Extremities: Normal Inspection, Other (mild pedal edema bilaterally lower extremities) Skin: Warm, Dry - Problem List Review Problem List Initiated/Reviewed/Updated: Yes - My Orders Last 24 Hours: My Active Orders 02/08/19 17:46 Oxygen Therapy [RC] PRN Up ad Adore [RC] ASDIRECTED VTE/DVT Education [RC] PER UNIT ROUTINE Vital Signs [RC] Q4H Acetaminophen [Tylenol] 650 mg PO Q4H PRN Acetaminophen/HYDROcodone [[place] 325-5 MG] 1 tab PO Q4H PRN Morphine 2 mg IVPUSH Q2H PRN Ondansetron [Zofran ODT] 4 mg PO Q4H PRN Ondansetron [Zofran] 4 mg IVPUSH Q4H PRN Resuscitation Status Routine 02/08/19 17:47 Intake and Output [RC] Q12H 02/08/19 17:49 RT Aerosol Therapy [RC] ASDIRECTED 02/08/19 18:00 Azithromycin [Zithromax] 500 mg Sodium Chloride 0.9% [Normal Saline (AdvBag)] 250 ml IV DAILY Codeine/guaiFENesin [Robitussin AC] 5 ml PO Q6H PRN Enoxaparin [Lovenox] 40 mg SUBCUT Q24H cefTRIAXone [Rocephin in Dextrose,Iso-Osm 1 GM/50 ML] 1 gm Premix Bag 1 bag IV Q24H 02/08/19 19:55 LEGIONELLA ANTIGEN [MREF] Routine STREP PNEUMONIAE ANTIGEN [MREF] Routine 02/08/19 22:00 Albuterol/Ipratropium [DuoNeb 3.0-0.5 MG/3 ML] 3 ml NEB Q4HRRT 02/08/19 Dinner Regular Diet [DIET] 02/09/19 08:07 Ketorolac [Toradol] 15 mg IVPUSH Q6H PRN 02/09/19 09:00 Nicotine [Habitrol] 14 mg TRDERM DAILY Omeprazole 20 mg PO DAILY 02/09/19 12:00 Potassium Chloride 40 meq PO ONETIME ONE 02/09/19 Dinner Fluid Restriction [DIET] 02/10/19 05:11 CBC WITH AUTO DIFF [HEME] AM COMPREHENSIVE METABOLIC PN,CMP [CHEM] AM 02/11/19 05:11 CBC WITH AUTO DIFF [HEME] AM COMPREHENSIVE METABOLIC PN,CMP [CHEM] AM - Plan Plan:: A: 1. Community acquired pneumonia 2. Hyponatremia 3. Hypokalemia 4. Leukocytosis 5. PMH COPD, sleep apnea, hypertension, gastric bypass P: 1. CAP- patient still has poor lung sounds, wheezing. No significant improvement overnight. Will go up to methylprednisolone 40 mg IV Q8H. Scheduled Duonebs. Will get CT chest today. Continue ceftriaxone and azithromycin. Supplemental O2 as needed. 2. Hyponatremia. Unsure about etiology specially after IV hydration. Will restrict PO fluids to 2 L. Will continue to monitor, pending CT chest. She is an active smoker and on diuretics at home for BP. 3. Hypokalemia- replace with KCl 40 mEq PO x 2. Recheck tomorrow. Dispo: 2-3 days.
[2019-02-09] MEDS ORDERED: Potassium Chloride 10% 20 MEQ/15 ML Soln 30 ML UD Cup PO ONE (12:00)
[2019-02-09] MEDS ORDERED: Iopamidol 755 MG/ML 500 ML Multipack Bottle IVPUSH STA (12:47)
--- NOTE | 2019-02-09 13:19 | CT ---
EXAM DATE: 02/09/19 PATIENT'S AGE: 48 CT chest Technique: Multiple axial sections through the chest were obtained. Intravenous contrast was utilized. Study has been performed as a pulmonary angiogram protocol. Findings: Pulmonary arteries are well-opacified. No filling defects are seen to indicate pulmonary embolism. Aorta shows no aneurysm. No pericardial thickening is seen. Severe fatty infiltration is noted within the liver. Patchy areas of increased density are seen throughout both lungs. No acute osseous finding is seen. Old ununited fractures are noted within the eighth and ninth lateral left ribs. Impression: 1. Patchy areas of increased density throughout both lungs. Please correlate if patient has infectious symptoms to represent multifocal pneumonia. Differential also includes cardiogenic or noncardiogenic pulmonary edema. 2. Severe fatty infiltration within the liver. 3. No findings of pulmonary embolism are seen. 4. 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 Diagnostic code #3 Report Signed by Proxy. [facility]
[2019-02-09] MEDS: methylPREDNISolone Sodium Succinate 40 MG/1 ML SDV IVPUSH SCH ×2 (15:28→23:17)
[2019-02-09] MEDS: cefTRIAXone 1 GM in Premix Bag 1 BAG IV SCH (17:55)
[2019-02-09] MEDS: Enoxaparin 40 MG/0.4 ML Syringe SUBCUT SCH (17:55)
[2019-02-10] MEDS: Albuterol/Ipratropium 3.0-0.5 MG/3 ML Neb Soln NEB SCH ×4 (03:06→13:52)
[2019-02-10] MEDS: Codeine/guaiFENesin 100-10 MG/5 ML Syrup 5 ML Cup PO PRN ×4 (04:04→20:38)
[2019-02-10] MEDS: Ketorolac 30 MG/ML SDV IVPUSH PRN ×3 (04:05→16:39)
[2019-02-10] MEDS: Sodium Chloride 0.9% 1,000 ML IV SCH ×2 (05:57→16:42)
[2019-02-10 06:30] LABS: BLOOD UREA NITROGEN,BUN 5 mg/dL (7.0-18.0); CARBON DIOXIDE,CO2 27.8 mmol/L (21.0-32.0); CHLORIDE,CL 100 mmol/L (98-107); GLUCOSE RANDOM 130 mg/dL (74-106); POTASSIUM,K 3.8 mmol/L (3.5-5.1); SODIUM,NA 138 mmol/L (136-145)
[2019-02-10] MEDS: Azithromycin 500 MG in Sodium Chloride 0.9% 250 ML IV SCH (08:20)
[2019-02-10] MEDS: Nicotine 14 MG/24 Hr Patch TRDERM SCH (08:20)
[2019-02-10] MEDS: methylPREDNISolone Sodium Succinate 40 MG/1 ML SDV IVPUSH SCH ×2 (08:20→20:39)
[2019-02-10] MEDS: Omeprazole 20 MG Cap.CR PO SCH (08:20)
--- NOTE | 2019-02-10 10:56 | PCM.PN ---
- General Info Date of Service: 02/10/19 Subjective Update: No acute events overnight. O2 sats>90% on room air. This morning, patient states she feels a little better with breathing and cough. No nausea or vomiting. No chest pain. - Patient Data Vitals - Most Recent: Last Vital Signs Temp 36.3 C 02/10/19 07:25 Pulse 86 02/10/19 07:25 Resp 18 02/10/19 07:25 BP 136/72 02/10/19 07:25 Pulse Ox 94 L 02/10/19 07:25 Weight - Most Recent: 100.839 kg I&O - Last 24 Hours: Intake & Output 02/09/19 02/10/19 02/10/19 22:59 06:59 14:59 Intake Total 3598 2162 Output Total 1750 2950 Balance 1848 -788 Lab Results Last 24 Hours: Laboratory Results - last 24 hr 02/10/19 02/10/19 Range/Units 05:51 05:51 WBC 17.33 H (4.0-11.0) K/uL RBC 3.60 L (4.30-5.90) M/uL Hgb 11.4 L (12.0-16.0) g/dL Hct 34.7 L (36.0-46.0) % MCV 96.4 (80.0-98.0) fL MCH 31.7 (27.0-32.0) pg MCHC 32.9 (31.0-37.0) g/dL RDW Std Deviation 52.8 (28.0-62.0) fl RDW Coeff of [place] 15 (11.0-15.0) % Plt Count 384 (150-400) K/uL MPV 9.70 (7.40-12.00) fL Neut % (Auto) 86.3 H (48.0-80.0) % Lymph % (Auto) 11.4 L (16.0-40.0) % [place] % (Auto) 2.0 (0.0-15.0) % Eos % (Auto) 0.2 (0.0-7.0) % Baso % (Auto) 0.1 (0.0-1.5) % Neut # (Auto) 15.0 H (1.4-5.7) K/uL Lymph # (Auto) 2.0 (0.6-2.4) K/uL [place] # (Auto) 0.3 (0.0-0.8) K/uL Eos # (Auto) 0.0 (0.0-0.7) K/uL Baso # (Auto) 0.0 (0.0-0.1) K/uL Nucleated RBC % 0.0 /100WBC Nucleated RBCs # 0 K/uL Sodium 138 (136-145) mmol/L Potassium 3.8 (3.5-5.1) mmol/L Chloride 100 (98-107) mmol/L Carbon Dioxide 27.8 (21.0-32.0) mmol/L BUN 5 L (7.0-18.0) mg/dL Creatinine 0.8 (0.6-1.0) mg/dL Est Cr Clr Drug Dosing 71.14 mL/min Estimated GFR (MDRD) > 60.0 ml/min Glucose 130 H (74-106) mg/dL Calcium 7.3 L (8.5-10.1) mg/dL Total Bilirubin 0.5 (0.2-1.0) mg/dL AST 49 H (15-37) IU/L ALT 53 (14-63) IU/L Alkaline Phosphatase 192 H (46-116) U/L Total Protein 6.7 (6.4-8.2) g/dL Albumin 2.9 L (3.4-5.0) g/dL Globulin 3.8 (2.6-4.0) g/dL Albumin/Globulin Ratio 0.8 L (0.9-1.6) Oziel Results Last 24 Hours: Microbiology 02/08/19 21:00 Gram Stain - Final Sputum - Expectorated Sputum Culture - Final Normal Respiratory [facility] Med Orders - Current: Current Medications Acetaminophen (Tylenol) 650 mg PO Q4H PRN PRN Reason: Pain (Mild 1-3)/fever Last Admin: 02/09/19 08:15 Dose: 650 mg Hydrocodone Bitart/Acetaminophen ([place] 325-5 Mg) 1 tab PO Q4H PRN PRN Reason: Pain (moderate 4-6) Albuterol/Ipratropium (Duoneb 3.0-0.5 Mg/3 Ml) 3 ml NEB Q4HRRT [facility] Last Admin: 02/10/19 10:13 Dose: 3 ml Enoxaparin Sodium (Lovenox) 40 mg SUBCUT Q24H [facility] Last Admin: 02/09/19 17:55 Dose: 40 mg Guaifenesin/Codeine Phosphate (Robitussin Ac) 5 ml PO Q4H PRN PRN Reason: Cough Azithromycin 500 mg/ Sodium (Chloride) 250 mls @ 250 mls/hr IV DAILY [facility] Last Admin: 02/10/19 08:20 Dose: 250 mls/hr Ceftriaxone Sodium/Dextrose 1 (gm/ Premix) 50 mls @ 100 mls/hr IV Q24H [facility] Last Admin: 02/09/19 17:55 Dose: 100 mls/hr Sodium Chloride (Normal Saline) 1,000 mls @ 125 mls/hr IV ASDIRECTED [facility] Last Admin: 02/10/19 05:57 Dose: 125 mls/hr Ketorolac Tromethamine (Toradol) 15 mg IVPUSH Q6H PRN PRN Reason: Pain (moderate 4-6) Last Admin: 02/10/19 10:07 Dose: 15 mg Methylprednisolone Sodium Succinate (Solu-Medrol) 40 mg IVPUSH BID [facility] Nicotine (Habitrol) 14 mg TRDERM DAILY [facility] Last Admin: 02/10/19 08:20 Dose: 14 mg Omeprazole (Omeprazole) 20 mg PO DAILY [facility] Last Admin: 02/10/19 08:20 Dose: 20 mg Ondansetron HCl (Zofran Odt) 4 mg PO Q4H PRN PRN Reason: nausea, able to take PO Ondansetron HCl (Zofran) 4 mg IVPUSH Q4H PRN PRN Reason: Nausea Discontinued Medications Albuterol/Ipratropium (Duoneb 3.0-0.5 Mg/3 Ml) 3 ml NEB Q4HRRT PRN PRN Reason: Shortness Of Breath/wheezing Guaifenesin/Codeine Phosphate (Robitussin Ac) 5 ml PO Q6H PRN PRN Reason: Cough Last Admin: 02/10/19 10:04 Dose: 5 ml Hydrochlorothiazide (Hydrochlorothiazide) 12.5 mg PO DAILY [facility] Sodium Chloride (Normal Saline) 1,000 mls @ 999 mls/hr IV STAT ONE Stop: 02/08/19 18:51 Last Admin: 02/08/19 18:20 Dose: 999 mls/hr Sodium Chloride (Normal Saline) 1,000 mls @ 125 mls/hr IV STAT [facility] Last Admin: 02/09/19 04:44 Dose: 125 mls/hr Magnesium Sulfate 2 gm/ Premix 50 mls @ 25 mls/hr IV ONETIME ONE Stop: 02/08/19 19:55 Last Admin: 02/08/19 20:48 Dose: 25 mls/hr Iopamidol (Isovue Multipack-370 (76%)) 50 ml IVPUSH ONETIME STA Stop: 02/09/19 12:48 Last Admin: 02/09/19 12:48 Dose: 50 ml Ketorolac Tromethamine (Toradol) 15 mg IM Q6H PRN PRN Reason: Pain (moderate 4-6) Last Admin: 02/09/19 02:41 Dose: 15 mg Lisinopril (Prinivil) 20 mg PO DAILY [facility] Methylprednisolone Sodium Succinate (Solu-Medrol) 125 mg IVPUSH DAILY [facility] Last Admin: 02/08/19 18:25 Dose: 125 mg Methylprednisolone Sodium Succinate (Solu-Medrol) 40 mg IV BID [facility] Methylprednisolone Sodium Succinate (Solu-Medrol) 40 mg IVPUSH Q12H [facility] Last Admin: 02/09/19 07:49 Dose: 40 mg Methylprednisolone Sodium Succinate (Solu-Medrol) 40 mg IVPUSH Q8H [facility] Last Admin: 02/10/19 08:20 Dose: 40 mg Morphine Sulfate (Morphine) 2 mg IVPUSH Q2H PRN PRN Reason: Pain (severe 7-10) Stop: 02/09/19 17:48 Potassium Chloride (Klor-Con M20) 40 meq PO ONETIME ONE Stop: 02/08/19 17:53 Last Admin: 02/08/19 18:21 Dose: 40 meq Potassium Chloride (Klor-Con M20) 40 meq PO Q4H [facility] Stop: 02/09/19 12:01 Last Admin: 02/09/19 08:14 Dose: 40 meq Potassium Chloride (Potassium Chloride) 40 meq PO ONETIME ONE Stop: 02/09/19 12:01 Last Admin: 02/09/19 11:41 Dose: 40 meq - Exam General: Alert, Oriented, Cooperative, No Acute Distress Lungs: Other (Improved inspiratory and expiratory lung sounds but still some mild wheezing bilaterally.) Cardiovascular: Regular Rate, Regular Rhythm GI/Abdominal Exam: Normal Bowel Sounds, Soft, Non-Tender, No Distention Extremities: Normal Inspection, No Pedal Edema Skin: Warm, Dry - Problem List Review Problem List Initiated/Reviewed/Updated: Yes - My Orders Last 24 Hours: My Active Orders 02/09/19 Dinner Fluid Restriction [DIET] 02/10/19 10:53 HIV12 AG/AB 4TH GEN [CHEM] Routine 02/10/19 10:54 Codeine/guaiFENesin [Robitussin AC] 5 ml PO Q4H PRN 02/10/19 10:55 Ambulate [RC] DAILY 02/10/19 21:00 methylPREDNISolone Sod Succ [Solu-MEDROL] 40 mg IVPUSH BID 02/11/19 05:11 CBC WITH AUTO DIFF [HEME] AM COMPREHENSIVE METABOLIC PN,CMP [CHEM] AM - Plan Plan:: A: 1. Community acquired pneumonia 2. Leukocytosis likely 2/2 steroids 3. Fatty liver 4. Hyponatremia, resolved 5. Hypokalemia, resolved 6. PMH COPD, sleep apnea, hypertension, gastric bypass P: Patient feeling a little better compared to day of admission. Will continue with IV antibiotics for now. Switch to duonebs PRN. Go down on methylprednisolone to BID. Will continue for now with 2 L PO fluid restriction. Continue with IV NS maintenance fluids. Advised patient to abstain from alcohol do to fatty liver see on CT. Will need PO steroid taper and PO abx at discharge. Dispo: likely dc in 1-2 days. Needs continued improvement in her lungs.
[2019-02-10] MEDS ORDERED: Albuterol/Ipratropium 3.0-0.5 MG/3 ML Neb Soln NEB PRN (17:16)
[2019-02-10] MEDS: cefTRIAXone 1 GM in Premix Bag 1 BAG IV SCH (17:17)
[2019-02-10] MEDS: Enoxaparin 40 MG/0.4 ML Syringe SUBCUT SCH (17:17)
[2019-02-10] MEDS: Acetaminophen/HYDROcodone 325-5 MG Tab PO PRN (22:04)
[2019-02-11] MEDS: Sodium Chloride 0.9% 1,000 ML IV SCH (01:03)
[2019-02-11] MEDS: Codeine/guaiFENesin 100-10 MG/5 ML Syrup 5 ML Cup PO PRN ×6 (01:14→23:53)
[2019-02-11] MEDS: Acetaminophen/HYDROcodone 325-5 MG Tab PO PRN ×5 (04:01→23:53)
[2019-02-11 06:59] LABS: BLOOD UREA NITROGEN,BUN 7 mg/dL (7.0-18.0); CHLORIDE,CL 106 mmol/L (98-107); GLUCOSE RANDOM 115 mg/dL (74-106); POTASSIUM,K 3.7 mmol/L (3.5-5.1); SODIUM,NA 143 mmol/L (136-145)
[2019-02-11] MEDS ORDERED: Potassium Chloride 10% 20 MEQ/15 ML Soln 30 ML UD Cup PO ONE (08:03)
[2019-02-11] MEDS ORDERED: Lisinopril/Hydrochlorothiazide 10-12.5 MG Tab PO SCH (09:00)
--- NOTE | 2019-02-11 09:47 | PCM.PN ---
- General Info Date of Service: 02/11/19 Subjective Update: patient was not happy this morning. She was upset thinking that she was getting discharged today. I spoke with the patient and informed her about her labs and condition. In addition, patient was under the wrong impression that she may have to go home with home oxygen indefinitely. I told her that if she goes home on oxygen it will be temporary until her lungs heal. - Patient Data Vitals - Most Recent: Last Vital Signs Temp 36.6 C 02/11/19 07:44 Pulse 77 02/11/19 04:00 Resp 18 02/11/19 07:44 BP 175/87 H 02/11/19 07:44 Pulse Ox 93 L 02/11/19 07:44 Weight - Most Recent: 100.839 kg I&O - Last 24 Hours: Intake & Output 02/10/19 02/11/19 02/11/19 22:59 06:59 14:59 Intake Total 2545 2354 Output Total 2400 1100 Balance 145 1254 Lab Results Last 24 Hours: Laboratory Results - last 24 hr 02/10/19 02/11/19 02/11/19 Range/Units 06:05 06:25 06:25 WBC 13.87 H (4.0-11.0) K/uL RBC 3.53 L (4.30-5.90) M/uL Hgb 11.3 L (12.0-16.0) g/dL Hct 35.1 L (36.0-46.0) % MCV 99.4 H (80.0-98.0) fL MCH 32.0 (27.0-32.0) pg MCHC 32.2 (31.0-37.0) g/dL RDW Std Deviation 57.8 (28.0-62.0) fl RDW Coeff of [place] 16 H (11.0-15.0) % Plt Count 390 (150-400) K/uL MPV 9.60 (7.40-12.00) fL Add Manual Diff YES Neutrophils % (Manual) 70 (48.0-80.0) % Band Neutrophils % 2 % Lymphocytes % (Manual) 23 (16.0-40.0) % Monocytes % (Manual) 4 (0.0-15.0) % Eosinophils % (Manual) 1 (0.0-7.0) % Nucleated RBC % 0.3 /100WBC Absolute Seg Neuts 9.7 H (1.4-5.7) Band Neutrophils # 0.3 Lymphocytes # (Manual) 3.2 H (0.6-2.4) Monocytes # (Manual) 0.6 (0.0-0.8) Eosinophils # (Manual) 0.1 (0.0-0.7) Nucleated RBCs # 0 K/uL Sodium 143 (136-145) mmol/L Potassium 3.7 (3.5-5.1) mmol/L Chloride 106 (98-107) mmol/L Carbon Dioxide 25.0 (21.0-32.0) mmol/L BUN 7 (7.0-18.0) mg/dL Creatinine 0.8 (0.6-1.0) mg/dL Est Cr Clr Drug Dosing 71.14 mL/min Estimated GFR (MDRD) > 60.0 ml/min Glucose 115 H (74-106) mg/dL Calcium 7.1 L (8.5-10.1) mg/dL Total Bilirubin 0.4 (0.2-1.0) mg/dL AST 78 H (15-37) IU/L ALT 66 H (14-63) IU/L Alkaline Phosphatase 188 H (46-116) U/L Total Protein 6.7 (6.4-8.2) g/dL Albumin 2.8 L (3.4-5.0) g/dL Globulin 3.9 (2.6-4.0) g/dL Albumin/Globulin Ratio 0.7 L (0.9-1.6) HIV 1&2 Ag/Ab, 4th Gen 0.1 (<1.0) INDEX Oziel Results Last 24 Hours: Microbiology 02/08/19 19:55 Streptococcus pneumoniae Antigen (M - Final Urine 02/08/19 19:55 Legionella Urinary Antigen - Final Urine 02/08/19 21:00 Gram Stain - Final Sputum - Expectorated Sputum Culture - Final Normal Respiratory Madeline Med Orders - Current: Current Medications Acetaminophen (Tylenol) 650 mg PO Q4H PRN PRN Reason: Pain (Mild 1-3)/fever Last Admin: 02/09/19 08:15 Dose: 650 mg Hydrocodone Bitart/Acetaminophen ([place] 325-5 Mg) 1 tab PO Q4H PRN PRN Reason: Pain (moderate 4-6) Last Admin: 02/11/19 04:01 Dose: 1 tab Albuterol/Ipratropium (Duoneb 3.0-0.5 Mg/3 Ml) 3 ml NEB Q6HRRT [facility] Enoxaparin Sodium (Lovenox) 40 mg SUBCUT Q24H [facility] Last Admin: 02/10/19 17:17 Dose: 40 mg Guaifenesin/Codeine Phosphate (Robitussin Ac) 5 ml PO Q4H PRN PRN Reason: Cough Last Admin: 02/11/19 05:40 Dose: 5 ml Lisinopril/HCTZ (Lisinopril-Hctz 10-12.5 Mg) 1 tab PO DAILY [facility] Azithromycin 500 mg/ Sodium (Chloride) 250 mls @ 250 mls/hr IV DAILY [facility] Last Admin: 02/10/19 08:20 Dose: 250 mls/hr Ceftriaxone Sodium/Dextrose 1 (gm/ Premix) 50 mls @ 100 mls/hr IV Q24H [facility] Last Admin: 02/10/19 17:17 Dose: 100 mls/hr Ketorolac Tromethamine (Toradol) 15 mg IVPUSH Q6H PRN PRN Reason: Pain (moderate 4-6) Last Admin: 02/10/19 16:39 Dose: 15 mg Methylprednisolone Sodium Succinate (Solu-Medrol) 40 mg IVPUSH DAILY [facility] Nicotine (Habitrol) 14 mg TRDERM DAILY [facility] Last Admin: 02/10/19 08:20 Dose: 14 mg Omeprazole (Omeprazole) 20 mg PO DAILY [facility] Last Admin: 02/10/19 08:20 Dose: 20 mg Ondansetron HCl (Zofran Odt) 4 mg PO Q4H PRN PRN Reason: nausea, able to take PO Ondansetron HCl (Zofran) 4 mg IVPUSH Q4H PRN PRN Reason: Nausea Discontinued Medications Albuterol/Ipratropium (Duoneb 3.0-0.5 Mg/3 Ml) 3 ml NEB Q4HRRT PRN PRN Reason: Shortness Of Breath/wheezing Albuterol/Ipratropium (Duoneb 3.0-0.5 Mg/3 Ml) 3 ml NEB Q4HRRT [facility] Last Admin: 02/10/19 13:52 Dose: 3 ml Albuterol/Ipratropium (Duoneb 3.0-0.5 Mg/3 Ml) 3 ml NEB Q4HRRT PRN PRN Reason: Dyspnea Last Admin: 02/10/19 17:33 Dose: 3 ml Guaifenesin/Codeine Phosphate (Robitussin Ac) 5 ml PO Q6H PRN PRN Reason: Cough Last Admin: 02/10/19 10:04 Dose: 5 ml Hydrochlorothiazide (Hydrochlorothiazide) 12.5 mg PO DAILY [facility] Sodium Chloride (Normal Saline) 1,000 mls @ 999 mls/hr IV STAT ONE Stop: 02/08/19 18:51 Last Admin: 02/08/19 18:20 Dose: 999 mls/hr Sodium Chloride (Normal Saline) 1,000 mls @ 125 mls/hr IV STAT [facility] Last Admin: 02/09/19 04:44 Dose: 125 mls/hr Magnesium Sulfate 2 gm/ Premix 50 mls @ 25 mls/hr IV ONETIME ONE Stop: 02/08/19 19:55 Last Admin: 02/08/19 20:48 Dose: 25 mls/hr Sodium Chloride (Normal Saline) 1,000 mls @ 125 mls/hr IV ASDIRECTED [facility] Last Admin: 02/11/19 01:03 Dose: 125 mls/hr Iopamidol (Isovue Multipack-370 (76%)) 50 ml IVPUSH ONETIME STA Stop: 02/09/19 12:48 Last Admin: 02/09/19 12:48 Dose: 50 ml Ketorolac Tromethamine (Toradol) 15 mg IM Q6H PRN PRN Reason: Pain (moderate 4-6) Last Admin: 02/09/19 02:41 Dose: 15 mg Lisinopril (Prinivil) 20 mg PO DAILY [facility] Methylprednisolone Sodium Succinate (Solu-Medrol) 125 mg IVPUSH DAILY [facility] Last Admin: 02/08/19 18:25 Dose: 125 mg Methylprednisolone Sodium Succinate (Solu-Medrol) 40 mg IV BID [facility] Methylprednisolone Sodium Succinate (Solu-Medrol) 40 mg IVPUSH Q12H [facility] Last Admin: 02/09/19 07:49 Dose: 40 mg Methylprednisolone Sodium Succinate (Solu-Medrol) 40 mg IVPUSH Q8H [facility] Last Admin: 02/10/19 08:20 Dose: 40 mg Methylprednisolone Sodium Succinate (Solu-Medrol) 40 mg IVPUSH BID [facility] Last Admin: 02/10/19 20:39 Dose: 40 mg Morphine Sulfate (Morphine) 2 mg IVPUSH Q2H PRN PRN Reason: Pain (severe 7-10) Stop: 02/09/19 17:48 Potassium Chloride (Klor-Con M20) 40 meq PO ONETIME ONE Stop: 02/08/19 17:53 Last Admin: 02/08/19 18:21 Dose: 40 meq Potassium Chloride (Klor-Con M20) 40 meq PO Q4H [facility] Stop: 02/09/19 12:01 Last Admin: 02/09/19 08:14 Dose: 40 meq Potassium Chloride (Potassium Chloride) 40 meq PO ONETIME ONE Stop: 02/09/19 12:01 Last Admin: 02/09/19 11:41 Dose: 40 meq Potassium Chloride (Potassium Chloride) 40 meq PO ONETIME ONE Stop: 02/11/19 08:04 - Exam General: Alert, Oriented, Other (upset) Lungs: Other (bilateral wheezing bilaterally.) Cardiovascular: Regular Rate, Regular Rhythm GI/Abdominal Exam: Normal Bowel Sounds, Soft, Non-Tender Extremities: Pedal Edema Skin: Warm, Dry - Problem List Review Problem List Initiated/Reviewed/Updated: Yes - My Orders Last 24 Hours: My Active Orders 02/10/19 10:54 Codeine/guaiFENesin [Robitussin AC] 5 ml PO Q4H PRN 02/10/19 10:55 Ambulate [RC] DAILY 02/11/19 09:00 Lisinopril/Hydrochlorothiazide [Lisinopril-HCTZ 10-12.5 MG] 1 tab PO DAILY 02/11/19 09:22 Consult to Physical Therapy [PT Evaluation and Treatment] [CONS] Routine 02/11/19 09:30 Albuterol/Ipratropium [DuoNeb 3.0-0.5 MG/3 ML] 3 ml NEB Q6HRRT 02/12/19 09:00 methylPREDNISolone Sod Succ [Solu-MEDROL] 40 mg IVPUSH DAILY - Plan Plan:: A: 1. Community acquired pneumonia, multifocal 2. Leukocytosis likely 2/2 steroids, improving 3. Fatty liver 4. Tobacco abuse 5. PMH sleep apnea, hypertension, gastric bypass P: 1. CAP- will start scheduled Duonebs q6h since patient was wheezy this morning. Continue with Ceftriaxone and azithromycin. Will go down on methylprednisolone to 40 mg IV daily. Will discontinue maintenance fluids and fluid restriction. Will need to ambulate twice daily. Ordered PT. I informed that patient that she is improving slowly from day of admission. This will take time to fully heal and she may have to go home on temporary oxygen. dispo: 1-2 days
[2019-02-11] MEDS: Omeprazole 20 MG Cap.CR PO SCH (09:48)
[2019-02-11] MEDS: Azithromycin 500 MG in Sodium Chloride 0.9% 250 ML IV SCH (09:53)
[2019-02-11] MEDS: Nicotine 14 MG/24 Hr Patch TRDERM SCH (10:04)
[2019-02-11] MEDS: Albuterol/Ipratropium 3.0-0.5 MG/3 ML Neb Soln NEB SCH ×4 (10:33→23:54)
[2019-02-11] MEDS ORDERED: methylPREDNISolone Sodium Succinate 40 MG/1 ML SDV ONE (11:10)
[2019-02-11] MEDS: methylPREDNISolone Sodium Succinate 40 MG/1 ML SDV IVPUSH SCH (11:16)
[2019-02-11] MEDS: cefTRIAXone 1 GM in Premix Bag 1 BAG IV SCH (17:11)
[2019-02-11] MEDS: Enoxaparin 40 MG/0.4 ML Syringe SUBCUT SCH (17:21)
[2019-02-11] MEDS: Lisinopril/Hydrochlorothiazide 10-12.5 MG Tab PO SCH (21:39)
[2019-02-12] MEDS: Acetaminophen/HYDROcodone 325-5 MG Tab PO PRN ×5 (04:31→20:52)
[2019-02-12] MEDS: Codeine/guaiFENesin 100-10 MG/5 ML Syrup 5 ML Cup PO PRN ×5 (04:32→20:54)
[2019-02-12] MEDS: Albuterol/Ipratropium 3.0-0.5 MG/3 ML Neb Soln NEB SCH ×3 (06:00→18:45)
[2019-02-12 06:20] LABS: BLOOD UREA NITROGEN,BUN 6 mg/dL (7.0-18.0); CHLORIDE,CL 102 mmol/L (98-107); GLUCOSE RANDOM 91 mg/dL (74-106); POTASSIUM,K 3.3 mmol/L (3.5-5.1); SODIUM,NA 141 mmol/L (136-145)
[2019-02-12] MEDS: Omeprazole 20 MG Cap.CR PO SCH (08:35)
[2019-02-12] MEDS: Lisinopril/Hydrochlorothiazide 10-12.5 MG Tab PO SCH ×2 (08:36→20:54)
[2019-02-12] MEDS: Nicotine 14 MG/24 Hr Patch TRDERM SCH (08:39)
--- NOTE | 2019-02-12 08:40 | PCM.PN ---
- General Info Date of Service: 02/12/19 - Review of Systems Systems Review Comment:: feeling alittle bit better but still short of breath when exerting herself. does not feel safe going home today as she [place] out of town. - Patient Data Vitals - Most Recent: Last Vital Signs Temp 36.3 C 02/12/19 07:36 Pulse 87 02/12/19 07:36 Resp 20 02/12/19 07:36 BP 139/85 02/12/19 07:36 Pulse Ox 94 L 02/12/19 07:36 Weight - Most Recent: 100.839 kg I&O - Last 24 Hours: Intake & Output 02/11/19 02/12/19 02/12/19 23:59 06:59 14:59 Intake Total Output Total Balance Lab Results Last 24 Hours: Laboratory Results - last 24 hr 02/12/19 02/12/19 Range/Units 05:55 05:55 WBC 12.30 H (4.0-11.0) K/uL RBC 3.56 L (4.30-5.90) M/uL Hgb 11.5 L (12.0-16.0) g/dL Hct 35.1 L (36.0-46.0) % MCV 98.6 H (80.0-98.0) fL MCH 32.3 H (27.0-32.0) pg MCHC 32.8 (31.0-37.0) g/dL RDW Std Deviation 56.9 (28.0-62.0) fl RDW Coeff of [place] 16 H (11.0-15.0) % Plt Count 437 H (150-400) K/uL MPV 9.60 (7.40-12.00) fL Add Manual Diff YES Neutrophils % (Manual) 65 (48.0-80.0) % Band Neutrophils % 1 % Lymphocytes % (Manual) 30 (16.0-40.0) % Monocytes % (Manual) 3 (0.0-15.0) % Eosinophils % (Manual) 1 (0.0-7.0) % Nucleated RBC % 0.8 /100WBC Absolute Seg Neuts 8.0 H (1.4-5.7) Band Neutrophils # 0.1 Lymphocytes # (Manual) 3.7 H (0.6-2.4) Monocytes # (Manual) 0.4 (0.0-0.8) Eosinophils # (Manual) 0.1 (0.0-0.7) Nucleated RBCs # 0 K/uL Sodium 141 (136-145) mmol/L Potassium 3.3 L (3.5-5.1) mmol/L Chloride 102 (98-107) mmol/L Carbon Dioxide 30.0 (21.0-32.0) mmol/L BUN 6 L (7.0-18.0) mg/dL Creatinine 0.8 (0.6-1.0) mg/dL Est Cr Clr Drug Dosing 71.14 mL/min Estimated GFR (MDRD) > 60.0 ml/min Glucose 91 (74-106) mg/dL Calcium 8.3 L (8.5-10.1) mg/dL Total Bilirubin 0.4 (0.2-1.0) mg/dL AST 70 H (15-37) IU/L ALT 78 H (14-63) IU/L Alkaline Phosphatase 184 H (46-116) U/L Total Protein 6.7 (6.4-8.2) g/dL Albumin 2.9 L (3.4-5.0) g/dL Globulin 3.8 (2.6-4.0) g/dL Albumin/Globulin Ratio 0.8 L (0.9-1.6) Oziel Results Last 24 Hours: Microbiology 02/11/19 15:05 Influenza Type A Antigen Screen - Final Nasopharyngeal Swab NEGATIVE INFLUENZA A VIRUS AG REFERENCE RANGE: NEGATIVE Influenza Type B Antigen Screen - Final NEGATIVE INFLUENZA B VIRUS AG REFERENCE RANGE: NEGATIVE Med Orders - Current: Current Medications Acetaminophen (Tylenol) 650 mg PO Q4H PRN PRN Reason: Pain (Mild 1-3)/fever Last Admin: 02/09/19 08:15 Dose: 650 mg Hydrocodone Bitart/Acetaminophen ([place] 325-5 Mg) 1 tab PO Q4H PRN PRN Reason: Pain (moderate 4-6) Last Admin: 02/12/19 04:31 Dose: 1 tab Albuterol/Ipratropium (Duoneb 3.0-0.5 Mg/3 Ml) 3 ml NEB Q6HRRT [facility] Last Admin: 02/12/19 06:00 Dose: 3 ml Enoxaparin Sodium (Lovenox) 40 mg SUBCUT Q24H [facility] Last Admin: 02/11/19 17:21 Dose: 40 mg Guaifenesin/Codeine Phosphate (Robitussin Ac) 5 ml PO Q4H PRN PRN Reason: Cough Last Admin: 02/12/19 04:32 Dose: 5 ml Lisinopril/HCTZ (Lisinopril-Hctz 10-12.5 Mg) 1 tab PO BID [facility] Last Admin: 02/11/19 21:39 Dose: 1 tab Azithromycin 500 mg/ Sodium (Chloride) 250 mls @ 250 mls/hr IV DAILY [facility] Last Admin: 02/11/19 09:53 Dose: 250 mls/hr Ceftriaxone Sodium/Dextrose 1 (gm/ Premix) 50 mls @ 100 mls/hr IV Q24H [facility] Last Admin: 02/11/19 17:11 Dose: 100 mls/hr Ketorolac Tromethamine (Toradol) 15 mg IVPUSH Q6H PRN PRN Reason: Pain (moderate 4-6) Last Admin: 02/10/19 16:39 Dose: 15 mg Methylprednisolone Sodium Succinate (Solu-Medrol) 40 mg IVPUSH DAILY [facility] Nicotine (Habitrol) 14 mg TRDERM DAILY [facility] Last Admin: 02/11/19 10:04 Dose: 14 mg Omeprazole (Omeprazole) 20 mg PO DAILY [facility] Last Admin: 02/11/19 09:48 Dose: 20 mg Ondansetron HCl (Zofran Odt) 4 mg PO Q4H PRN PRN Reason: nausea, able to take PO Ondansetron HCl (Zofran) 4 mg IVPUSH Q4H PRN PRN Reason: Nausea Discontinued Medications Albuterol/Ipratropium (Duoneb 3.0-0.5 Mg/3 Ml) 3 ml NEB Q4HRRT PRN PRN Reason: Shortness Of Breath/wheezing Albuterol/Ipratropium (Duoneb 3.0-0.5 Mg/3 Ml) 3 ml NEB Q4HRRT [facility] Last Admin: 02/10/19 13:52 Dose: 3 ml Albuterol/Ipratropium (Duoneb 3.0-0.5 Mg/3 Ml) 3 ml NEB Q4HRRT PRN PRN Reason: Dyspnea Last Admin: 02/10/19 17:33 Dose: 3 ml Guaifenesin/Codeine Phosphate (Robitussin Ac) 5 ml PO Q6H PRN PRN Reason: Cough Last Admin: 02/10/19 10:04 Dose: 5 ml Lisinopril/HCTZ (Lisinopril-Hctz 10-12.5 Mg) 1 tab PO DAILY [facility] Last Admin: 02/11/19 09:48 Dose: 1 tab Hydrochlorothiazide (Hydrochlorothiazide) 12.5 mg PO DAILY [facility] Sodium Chloride (Normal Saline) 1,000 mls @ 999 mls/hr IV STAT ONE Stop: 02/08/19 18:51 Last Admin: 02/08/19 18:20 Dose: 999 mls/hr Sodium Chloride (Normal Saline) 1,000 mls @ 125 mls/hr IV STAT [facility] Last Admin: 02/09/19 04:44 Dose: 125 mls/hr Magnesium Sulfate 2 gm/ Premix 50 mls @ 25 mls/hr IV ONETIME ONE Stop: 02/08/19 19:55 Last Admin: 02/08/19 20:48 Dose: 25 mls/hr Sodium Chloride (Normal Saline) 1,000 mls @ 125 mls/hr IV ASDIRECTED [facility] Last Admin: 02/11/19 01:03 Dose: 125 mls/hr Iopamidol (Isovue Multipack-370 (76%)) 50 ml IVPUSH ONETIME STA Stop: 02/09/19 12:48 Last Admin: 02/09/19 12:48 Dose: 50 ml Ketorolac Tromethamine (Toradol) 15 mg IM Q6H PRN PRN Reason: Pain (moderate 4-6) Last Admin: 02/09/19 02:41 Dose: 15 mg Lisinopril (Prinivil) 20 mg PO DAILY [facility] Methylprednisolone Sodium Succinate (Solu-Medrol) 125 mg IVPUSH DAILY [facility] Last Admin: 02/08/19 18:25 Dose: 125 mg Methylprednisolone Sodium Succinate (Solu-Medrol) 40 mg IV BID [facility] Methylprednisolone Sodium Succinate (Solu-Medrol) 40 mg IVPUSH Q12H [facility] Last Admin: 02/09/19 07:49 Dose: 40 mg Methylprednisolone Sodium Succinate (Solu-Medrol) 40 mg IVPUSH Q8H [facility] Last Admin: 02/10/19 08:20 Dose: 40 mg Methylprednisolone Sodium Succinate (Solu-Medrol) 40 mg IVPUSH BID [facility] Last Admin: 02/11/19 11:16 Dose: Not Given Methylprednisolone Sodium Succinate (Solu-Medrol) Confirm Administered Dose 40 mg .ROUTE .STK-MED ONE Stop: 02/11/19 11:11 Last Admin: 02/11/19 11:13 Dose: 40 mg Morphine Sulfate (Morphine) 2 mg IVPUSH Q2H PRN PRN Reason: Pain (severe 7-10) Stop: 02/09/19 17:48 Potassium Chloride (Klor-Con M20) 40 meq PO ONETIME ONE Stop: 02/08/19 17:53 Last Admin: 02/08/19 18:21 Dose: 40 meq Potassium Chloride (Klor-Con M20) 40 meq PO Q4H [facility] Stop: 02/09/19 12:01 Last Admin: 02/09/19 08:14 Dose: 40 meq Potassium Chloride (Potassium Chloride) 40 meq PO ONETIME ONE Stop: 02/09/19 12:01 Last Admin: 02/09/19 11:41 Dose: 40 meq Potassium Chloride (Potassium Chloride) 40 meq PO ONETIME ONE Stop: 02/11/19 08:04 Last Admin: 02/11/19 09:49 Dose: 40 meq - Exam General: Alert, Oriented Lungs: Normal Respiratory Effort, Rhonchi, Wheezing Cardiovascular: Regular Rate, Regular Rhythm Extremities: Non-Tender, No Pedal Edema Skin: Warm, Dry, Intact Neurological: No New Focal Deficit - Problem List Review Problem List Initiated/Reviewed/Updated: Yes - Plan Plan:: 48 yo male admitted for multi focal pneumonia and COPD. Treating with Rocephin , Azithromycin and solumedrol. Likely discharge home tomorrow.
[2019-02-12] MEDS: Azithromycin 500 MG in Sodium Chloride 0.9% 250 ML IV SCH (08:42)
[2019-02-12] MEDS: methylPREDNISolone Sodium Succinate 40 MG/1 ML SDV IVPUSH SCH (08:42)
[2019-02-12] MEDS: cefTRIAXone 1 GM in Premix Bag 1 BAG IV SCH (17:37)
[2019-02-12] MEDS: Enoxaparin 40 MG/0.4 ML Syringe SUBCUT SCH (17:38)
[2019-02-13] MEDS: Albuterol/Ipratropium 3.0-0.5 MG/3 ML Neb Soln NEB SCH ×3 (00:07→15:42)
[2019-02-13] MEDS: Acetaminophen/HYDROcodone 325-5 MG Tab PO PRN ×3 (01:13→10:57)
[2019-02-13] MEDS: Codeine/guaiFENesin 100-10 MG/5 ML Syrup 5 ML Cup PO PRN ×3 (01:13→10:57)
[2019-02-13 06:46] LABS: BLOOD UREA NITROGEN,BUN 7 mg/dL (7.0-18.0); CARBON DIOXIDE,CO2 30.2 mmol/L (21.0-32.0); CHLORIDE,CL 100 mmol/L (98-107); GLUCOSE RANDOM 90 mg/dL (74-106); POTASSIUM,K 3.1 mmol/L (3.5-5.1); SODIUM,NA 140 mmol/L (136-145)
[2019-02-13] MEDS: Potassium Chloride 10% 20 MEQ/15 ML Soln 30 ML UD Cup PO SCH ×2 (07:47→11:50)
[2019-02-13] MEDS: Azithromycin 500 MG in Sodium Chloride 0.9% 250 ML IV SCH (08:02)
[2019-02-13] MEDS: Lisinopril/Hydrochlorothiazide 10-12.5 MG Tab PO SCH (08:05)
[2019-02-13] MEDS: methylPREDNISolone Sodium Succinate 40 MG/1 ML SDV IVPUSH SCH (08:05)
[2019-02-13] MEDS: Nicotine 14 MG/24 Hr Patch TRDERM SCH (08:05)
[2019-02-13] MEDS: Omeprazole 20 MG Cap.CR PO SCH (08:05)
[2019-02-13] MEDS ORDERED: Magnesium Sulfate/Water 2 GM in Premix Bag 1 BAG IV ONE (08:08)
--- NOTE | 2019-02-13 08:53 | PCM.DCSUM1 ---
Discharge Summary - Hospital Course Free Text/Narrative:: 48 y/o female with history of COPD, hypertension who was directly admitted on from her PCP's clinic due to worsening pneumonia. CT chest showed multifocal pneumonia. No pulmonary embolism. Patient was started on ceftriaxone and azithromycin IV. Her initial WBC was 14K which later came down to 10K at time of discharge. However, she required scheduled Duoneb treatments q4-6H intermittently during this hospitalization. At rest her oxygen saturation was above 90%, however, her O2 sats would drop <90% when ambulating. She remained afebrile. Her electrolytes, K and Mg were replaced. She was discharged home on home oxygen, 0.5-1.0 ml NC as needed for 1 month. In addition to Augmentin and Azithromycin, Robitussin, Ransom for pleuritic pain. Scheduled nebulizer treatments and prednisone taper over the next 10 days. She will need to follow- up with pulmonology and her PCP. In addition, advised her to abstain from tobacco use. - Discharge Data Discharge Date: 02/13/19 Discharge Disposition: Home, Self-Care 01 Condition: Good - Referral to Home Health Primary Care Physician: PCP Unknown - Patient Summary/Data Consults: Consultations 02/11/19 09:22 Consult to Physical Therapy [PT Evaluation and Treatment] [CONS] Routine - Patient Instructions Diet: Regular Diet as Tolerated Activity: As Tolerated, No Strenuous Activities, Rest and Relax Today Notify Provider of: Fever, Increased Pain, Swelling and Redness, Drainage, Nausea and/or Vomiting - Discharge Plan *PRESCRIPTION DRUG MONITORING PROGRAM REVIEWED*: No *COPY OF PRESCRIPTION DRUG MONITORING REPORT IN PATIENT SELINA: No Prescriptions/Med Rec: Acetaminophen/HYDROcodone [Ransom 325-5 MG] 1 tab PO Q4H PRN #15 tablet PRN Reason: Pain (Moderate 4-6) Albuterol [Proventil Neb Soln] 2.5 mg INH Q4H #30 neb Amoxicillin/Clavulanate K [Augmentin 875-125 MG] 1 tab PO BID 5 Days #10 tablet Azithromycin 250 mg PO DAILY 5 Days #5 tablet Codeine/guaiFENesin [Robitussin AC] 5 ml PO Q4H PRN #100 ml PRN Reason: Cough Nicotine [Habitrol] 14 mg TRDERM DAILY #30 patch Ondansetron [Zofran ODT] 4 mg PO Q4H PRN #20 tab.dis PRN Reason: nausea, able to take PO predniSONE [Prednisone] 10 mg PO DAILY #15 tablet predniSONE [Prednisone] 40 mg PO DAILY 5 Days #10 tablet Home Medications: Home Meds Glycopyrrolate/Formoterol Fum [Bevespi Aerosphere Inhaler] 1 puff ASDIRECTED [History] Lisinopril/Hydrochlorothiazide [Lisinopril-Hctz 20-12.5 mg Tab] 1 each PO DAILY 04/06/18 [History] Multivitamin [Multi-Vitamin Daily] 1 each PO DAILY 02/08/19 [History] Omeprazole 20 mg PO DAILY 02/08/19 [History] Acetaminophen/HYDROcodone [Ransom 325-5 MG] 1 tab PO Q4H PRN #15 tablet 02/13/19 [Rx] Albuterol [Proventil Neb Soln] 2.5 mg INH Q4H #30 neb 02/13/19 [Rx] Amoxicillin/Clavulanate K [Augmentin 875-125 MG] 1 tab PO BID 5 Days #10 tablet 02/13/19 [Rx] Azithromycin 250 mg PO DAILY 5 Days #5 tablet 02/13/19 [Rx] Codeine/guaiFENesin [Robitussin AC] 5 ml PO Q4H PRN #100 ml 02/13/19 [Rx] Nicotine [Habitrol] 14 mg TRDERM DAILY #30 patch 02/13/19 [Rx] Ondansetron [Zofran ODT] 4 mg PO Q4H PRN #20 tab.dis 02/13/19 [Rx] predniSONE [Prednisone] 10 mg PO DAILY #15 tablet 02/13/19 [Rx] predniSONE [Prednisone] 40 mg PO DAILY 5 Days #10 tablet 02/13/19 [Rx] Patient Handouts: Acetaminophen; Hydrocodone tablets or capsules, Ondansetron oral dissolving tablet, Prednisolone tablets, Codeine; Guaifenesin oral solution or syrup, Nicotine skin patches, Albuterol inhalation solution, Community-Acquired Pneumonia, Adult, [id number] Referrals: [facility] [Outside] Lisbet Durant PA [Physician Side Door Worker] - 02/17/19 2:45 pm - Discharge Summary/Plan Comment DC Time >30 min.: No - Patient Data Vitals - Most Recent: Last Vital Signs Temp 36.2 C 02/13/19 07:54 Pulse 82 02/13/19 07:54 Resp 20 02/13/19 07:54 BP 141/81 H 02/13/19 07:54 Pulse Ox 94 L 02/13/19 07:54 Weight - Most Recent: 100.839 kg I&O - Last 24 hours: Intake & Output 02/12/19 02/13/19 02/13/19 22:59 06:59 14:59 Intake Total 1120 1900 Output Total 2650 2200 Balance -1530 -300 Lab Results - Last 24 hrs: Laboratory Results - last 24 hr 02/13/19 02/13/19 02/13/19 Range/Units 06:10 06:10 06:10 WBC 10.71 (4.0-11.0) K/uL RBC 3.58 L (4.30-5.90) M/uL Hgb 11.3 L (12.0-16.0) g/dL Hct 35.4 L (36.0-46.0) % MCV 98.9 H (80.0-98.0) fL MCH 31.6 (27.0-32.0) pg MCHC 31.9 (31.0-37.0) g/dL RDW Std Deviation 54.7 (28.0-62.0) fl RDW Coeff of Hudson 15 (11.0-15.0) % Plt Count 456 H (150-400) K/uL MPV 9.60 (7.40-12.00) fL Add Manual Diff YES Neutrophils % (Manual) 57 (48.0-80.0) % Band Neutrophils % 1 % Lymphocytes % (Manual) 34 (16.0-40.0) % Monocytes % (Manual) 6 (0.0-15.0) % Eosinophils % (Manual) 1 (0.0-7.0) % Myelocytes % 1 % Nucleated RBC % 0.8 /100WBC Absolute Seg Neuts 6.1 H (1.4-5.7) Band Neutrophils # 0.1 Lymphocytes # (Manual) 3.6 H (0.6-2.4) Monocytes # (Manual) 0.6 (0.0-0.8) Eosinophils # (Manual) 0.1 (0.0-0.7) Absolute Myelocytes 0.1 Nucleated RBCs # 0 K/uL Sodium 140 (136-145) mmol/L Potassium 3.1 L (3.5-5.1) mmol/L Chloride 100 (98-107) mmol/L Carbon Dioxide 30.2 (21.0-32.0) mmol/L BUN 7 (7.0-18.0) mg/dL Creatinine 0.8 (0.6-1.0) mg/dL Est Cr Clr Drug Dosing 71.14 mL/min Estimated GFR (MDRD) > 60.0 ml/min Glucose 90 (74-106) mg/dL Calcium 9.0 (8.5-10.1) mg/dL Magnesium 1.5 L (1.8-2.4) mg/dL Total Bilirubin 0.4 (0.2-1.0) mg/dL AST 52 H (15-37) IU/L ALT 67 H (14-63) IU/L Alkaline Phosphatase 171 H (46-116) U/L Total Protein 6.7 (6.4-8.2) g/dL Albumin 2.9 L (3.4-5.0) g/dL Globulin 3.8 (2.6-4.0) g/dL Albumin/Globulin Ratio 0.8 L (0.9-1.6) Med Orders - Current: Current Medications Acetaminophen (Tylenol) 650 mg PO Q4H PRN PRN Reason: Pain (Mild 1-3)/fever Last Admin: 02/09/19 08:15 Dose: 650 mg Hydrocodone Bitart/Acetaminophen (Ransom 325-5 Mg) 1 tab PO Q4H PRN PRN Reason: Pain (moderate 4-6) Last Admin: 02/13/19 06:33 Dose: 1 tab Albuterol/Ipratropium (Duoneb 3.0-0.5 Mg/3 Ml) 3 ml NEB Q6HRRT [facility] Last Admin: 02/13/19 06:57 Dose: 3 ml Enoxaparin Sodium (Lovenox) 40 mg SUBCUT Q24H [facility] Last Admin: 02/12/19 17:38 Dose: 40 mg Guaifenesin/Codeine Phosphate (Robitussin Ac) 5 ml PO Q4H PRN PRN Reason: Cough Last Admin: 02/13/19 06:33 Dose: 5 ml Lisinopril/HCTZ (Lisinopril-Hctz 10-12.5 Mg) 1 tab PO BID [facility] Last Admin: 02/13/19 08:05 Dose: 1 tab Azithromycin 500 mg/ Sodium (Chloride) 250 mls @ 250 mls/hr IV DAILY [facility] Last Admin: 02/13/19 08:02 Dose: 250 mls/hr Ceftriaxone Sodium/Dextrose 1 (gm/ Premix) 50 mls @ 100 mls/hr IV Q24H [facility] Last Admin: 02/12/19 17:37 Dose: 100 mls/hr Magnesium Sulfate 2 gm/ Premix 50 mls @ 25 mls/hr IV ONETIME ONE Stop: 02/13/19 10:07 Ketorolac Tromethamine (Toradol) 15 mg IVPUSH Q6H PRN PRN Reason: Pain (moderate 4-6) Last Admin: 02/10/19 16:39 Dose: 15 mg Methylprednisolone Sodium Succinate (Solu-Medrol) 40 mg IVPUSH DAILY [facility] Last Admin: 02/13/19 08:05 Dose: 40 mg Nicotine (Habitrol) 14 mg TRDERM DAILY [facility] Last Admin: 02/13/19 08:05 Dose: 14 mg Omeprazole (Omeprazole) 20 mg PO DAILY [facility] Last Admin: 02/13/19 08:05 Dose: 20 mg Ondansetron HCl (Zofran Odt) 4 mg PO Q4H PRN PRN Reason: nausea, able to take PO Ondansetron HCl (Zofran) 4 mg IVPUSH Q4H PRN PRN Reason: Nausea Potassium Chloride (Potassium Chloride) 40 meq PO Q4H [facility] Stop: 02/13/19 11:31 Last Admin: 02/13/19 07:47 Dose: 40 meq Discontinued Medications Albuterol/Ipratropium (Duoneb 3.0-0.5 Mg/3 Ml) 3 ml NEB Q4HRRT PRN PRN Reason: Shortness Of Breath/wheezing Albuterol/Ipratropium (Duoneb 3.0-0.5 Mg/3 Ml) 3 ml NEB Q4HRRT [facility] Last Admin: 02/10/19 13:52 Dose: 3 ml Albuterol/Ipratropium (Duoneb 3.0-0.5 Mg/3 Ml) 3 ml NEB Q4HRRT PRN PRN Reason: Dyspnea Last Admin: 02/10/19 17:33 Dose: 3 ml Guaifenesin/Codeine Phosphate (Robitussin Ac) 5 ml PO Q6H PRN PRN Reason: Cough Last Admin: 02/10/19 10:04 Dose: 5 ml Lisinopril/HCTZ (Lisinopril-Hctz 10-12.5 Mg) 1 tab PO DAILY [facility] Last Admin: 02/11/19 09:48 Dose: 1 tab Hydrochlorothiazide (Hydrochlorothiazide) 12.5 mg PO DAILY [facility] Sodium Chloride (Normal Saline) 1,000 mls @ 999 mls/hr IV STAT ONE Stop: 02/08/19 18:51 Last Admin: 02/08/19 18:20 Dose: 999 mls/hr Sodium Chloride (Normal Saline) 1,000 mls @ 125 mls/hr IV STAT [facility] Last Admin: 02/09/19 04:44 Dose: 125 mls/hr Magnesium Sulfate 2 gm/ Premix 50 mls @ 25 mls/hr IV ONETIME ONE Stop: 02/08/19 19:55 Last Admin: 02/08/19 20:48 Dose: 25 mls/hr Sodium Chloride (Normal Saline) 1,000 mls @ 125 mls/hr IV ASDIRECTED [facility] Last Admin: 02/11/19 01:03 Dose: 125 mls/hr Iopamidol (Isovue Multipack-370 (76%)) 50 ml IVPUSH ONETIME STA Stop: 02/09/19 12:48 Last Admin: 02/09/19 12:48 Dose: 50 ml Ketorolac Tromethamine (Toradol) 15 mg IM Q6H PRN PRN Reason: Pain (moderate 4-6) Last Admin: 02/09/19 02:41 Dose: 15 mg Lisinopril (Prinivil) 20 mg PO DAILY [facility] Methylprednisolone Sodium Succinate (Solu-Medrol) 125 mg IVPUSH DAILY [facility] Last Admin: 02/08/19 18:25 Dose: 125 mg Methylprednisolone Sodium Succinate (Solu-Medrol) 40 mg IV BID [facility] Methylprednisolone Sodium Succinate (Solu-Medrol) 40 mg IVPUSH Q12H [facility] Last Admin: 02/09/19 07:49 Dose: 40 mg Methylprednisolone Sodium Succinate (Solu-Medrol) 40 mg IVPUSH Q8H [facility] Last Admin: 02/10/19 08:20 Dose: 40 mg Methylprednisolone Sodium Succinate (Solu-Medrol) 40 mg IVPUSH BID [facility] Last Admin: 02/11/19 11:16 Dose: Not Given Methylprednisolone Sodium Succinate (Solu-Medrol) Confirm Administered Dose 40 mg .ROUTE .STK-MED ONE Stop: 02/11/19 11:11 Last Admin: 02/11/19 11:13 Dose: 40 mg Morphine Sulfate (Morphine) 2 mg IVPUSH Q2H PRN PRN Reason: Pain (severe 7-10) Stop: 02/09/19 17:48 Potassium Chloride (Klor-Con M20) 40 meq PO ONETIME ONE Stop: 02/08/19 17:53 Last Admin: 02/08/19 18:21 Dose: 40 meq Potassium Chloride (Klor-Con M20) 40 meq PO Q4H [facility] Stop: 02/09/19 12:01 Last Admin: 02/09/19 08:14 Dose: 40 meq Potassium Chloride (Potassium Chloride) 40 meq PO ONETIME ONE Stop: 02/09/19 12:01 Last Admin: 02/09/19 11:41 Dose: 40 meq Potassium Chloride (Potassium Chloride) 40 meq PO ONETIME ONE Stop: 02/11/19 08:04 Last Admin: 02/11/19 09:49 Dose: 40 meq
[2019-02-13 12:17] VITALS: BP 119/73; PULSE 83
== END 2019-02-13 13:30 | disposition home or self-care (01) | DRG 139 ==
LOC: MW.MS 10:02 → INTOOBSV 16:58 → MW.MS 16:58 → OBSVTOIN 02-09 10:02
PROVIDERS: ADMIT Student in an Organized Health Care Education/Training Program; ATTEND Student in an Organized Health Care Education/Training Program
DX: J18.9 Pneumonia, unspecified organism (principal); E87.6 Hypokalemia; E83.42 Hypomagnesemia; E87.1 Hypo-osmolality and hyponatremia; J44.0 Chronic obstructive pulmonary disease with (acute) lower respiratory infection; G47.30 Sleep apnea, unspecified; K76.0 Fatty (change of) liver, not elsewhere classified; T38.0X5A Adverse effect of glucocorticoids and synthetic analogues, initial encounter; I10 Essential (primary) hypertension; F17.210 Nicotine dependence, cigarettes, uncomplicated; Z96.651 Presence of right artificial knee joint; Z79.52 Long term (current) use of systemic steroids; Z79.899 Other long term (current) drug therapy; R06.02 Shortness of breath; J84.9 Interstitial pulmonary disease, unspecified
CPT/HCPCS: 36415; 36600; 71046; 71046-26; 71275; 71275-26; 80053; 80061; 82803; 82977; 83735; 83880; 84443; 85025; 85379; 87070; 87205; 87389; 87804; 87899; 94640; 97161-GP; A9270-GY; J0456; J0696; J1650; J1885; J2920; J2930; J3475; J7040; J7050; J7620-GY; Q9967

== ENCOUNTER 2019-06-04 12:00 | Inpatient (IN) | payer BC ==
[2019-06-04] MEDS ORDERED: methylPREDNISolone Sodium Succinate 125 MG/2 ML SDV IVPUSH ONE (12:29)
[2019-06-04] MEDS ORDERED: Albuterol/Ipratropium 3.0-0.5 MG/3 ML Neb Soln NEB ONE ×2 (12:29→13:30)
[2019-06-04] MEDS ORDERED: Sodium Chloride 0.9% 2.5 ML Syringe FLUSH PRN (12:30)
[2019-06-04] MEDS ORDERED: Sodium Chloride 0.9% 10 ML Syringe FLUSH PRN (12:30)
--- NOTE | 2019-06-04 12:54 | CR ---
INDICATION: Cough. TECHNIQUE: Chest 1 view. COMPARISON: 08 February 2019 FINDINGS: Cardiovascular and mediastinum: Heart size and vasculature are normal in caliber and appearance. Mediastinum is within normal limits. Lungs and pleural space: Diffuse mild interstitial prominence with some peribronchial cuffing. No sign of infiltrate or mass. No sign of pleural effusion. No pneumothorax. Bones and soft tissues: No significant findings. IMPRESSION: Viral pneumonitis/bronchitis or reactive airways disease. Dictated by Vinny Mike MD @ Jun 04 2019 12:50PM Signed by Dr. Vinny Mike @ Jun 04 2019 12:52PM
[2019-06-04 13:21] LABS: BLOOD UREA NITROGEN,BUN 5 mg/dL (7.0-18.0); CARBON DIOXIDE,CO2 31.8 mmol/L (21.0-32.0); CHLORIDE,CL 89 mmol/L (98-107); GLUCOSE RANDOM 91 mg/dL (74-106); POTASSIUM,K 2.6 mmol/L (3.5-5.1); SODIUM,NA 130 mmol/L (136-145)
[2019-06-04] MEDS ORDERED: Potassium Chloride 20 MEQ Tab.ER PO ONE ×2 (13:55→16:38)
[2019-06-04] MEDS ORDERED: Potassium Chloride 20 MEQ Packet PO SCH (14:00)
[2019-06-04] MEDS ORDERED: Azithromycin 250 MG Tab PO ONE (14:08)
--- NOTE | 2019-06-04 14:08 | EDM.PDOC ---
ED HPI GENERAL MEDICAL PROBLEM - General Chief Complaint: Respiratory Problem Stated Complaint: TROUBLE BREATHING Time Seen by Provider: 06/04/19 12:09 - History of Present Illness INITIAL COMMENTS - FREE TEXT/NARRATIVE: 48-year-old female smoker history of COPD presenting to ER for 5 days of worsening cough and dyspnea. Some pleuritic pain when she is coughing. Woke up today and her O2 sat was low she reports that she measured it and was in the 70s. Nebulizers were not working. Also taking prednisone right now and she still having dyspnea. Denied any changes in her leg swelling denied any hemoptysis. Symptoms have been worsening over the last 5 days. Exertion worsens her symptoms. nothing Has improved her symptoms Chest Pain Pain Score (Numeric/FACES): 8 - Related Data Allergies Allergy/AdvReac Type Severity Reaction Status Date / Time No Known Allergies Allergy Verified 06/04/19 12:09 Home Meds: Home Meds Glycopyrrolate/Formoterol Fum [Bevespi Aerosphere Inhaler] 1 puff ASDIRECTED [History] Lisinopril/Hydrochlorothiazide [Lisinopril-Hctz 20-12.5 mg Tab] 1 each PO DAILY 04/06/18 [History] Multivitamin [Multi-Vitamin Daily] 1 each PO DAILY 02/08/19 [History] Omeprazole 20 mg PO DAILY 02/08/19 [History] Albuterol [Proventil Neb Soln] 2.5 mg INH Q4H #30 neb 02/13/19 [Rx] Amoxicillin/Clavulanate K [Augmentin 875-125 MG] 1 tab PO BID 5 Days #10 tablet 02/13/19 [Rx] Nicotine [Habitrol] 14 mg TRDERM DAILY #30 patch 02/13/19 [Rx] predniSONE [Prednisone] 40 mg PO DAILY 5 Days #10 tablet 02/13/19 [Rx] Past Medical History HEENT History: Reports: None Cardiovascular History: Reports: Hypertension Respiratory History: Reports: Pneumonia, Recurrent Other Respiratory History: Reports 20 yr history of smoking, current use 1/2 pack per day Gastrointestinal History: Reports: None Genitourinary History: Reports: None FANS CLERK History: Reports: Neurological History: Reports: None Endocrine/Metabolic History: Reports: None Other Dermatologic History: "Something on top of Right foot unsure if eczema or what" - Infectious Disease History Infectious Disease History: Reports: None - Past Surgical History Other GI Surgeries/Procedures: Gastric Bypass, Lap Kathryn Female Surgical History: Reports: None Other Musculoskeletal Surgeries/Procedures:: 2 knee arthroscopies, Repair meniscus or meniscectomy Rt, Right Total Knee Replacement, REvision Right Knee Replacement 05/2014 Social & Family History - Family History Family Medical History: Noncontributory - Tobacco Use Smoking Status *Q: Current Every Day Smoker Years of Tobacco use: 20 Packs/Tins Daily: 0.5 - Caffeine Use Caffeine Use: Reports: Coffee, Tea ED ROS GENERAL - Review of Systems Review Of Systems: See Below Constitutional: Reports: Weakness HEENT: Reports: No Symptoms Respiratory: Reports: Shortness of Breath, Cough Cardiovascular: Reports: Chest Pain Endocrine: Reports: No Symptoms GI/Abdominal: Reports: No Symptoms : Reports: No Symptoms Musculoskeletal: Reports: No Symptoms Skin: Reports: No Symptoms Neurological: Reports: No Symptoms Psychiatric: Reports: No Symptoms Hematologic/Lymphatic: Reports: No Symptoms Immunologic: Reports: No Symptoms ED EXAM, GENERAL - Physical Exam Exam: See Below Exam Limited By: No Limitations General Appearance: Alert, WD/WN Nose: Normal Inspection Head: Atraumatic, Normocephalic Neck: Normal Inspection Respiratory/Chest: No Respiratory Distress, Decreased Breath Sounds Cardiovascular: Normal Peripheral Pulses, Regular Rate, Rhythm, No Edema, No JVD GI/Abdominal: Soft, Non-Tender (Female) Exam: Deferred Rectal (Female) Exam: Deferred Back Exam: Normal Inspection Extremities: Normal Inspection, No Pedal Edema Neurological: Alert, Oriented, Normal Cognition Psychiatric: Normal Affect Skin Exam: Warm EKG INTERPRETATION Rhythm: NSR QRS: Normal ST-T: Normal QT: Normal Course - Vital Signs Last Recorded V/S: Last Vital Signs Temp 99.1 F 06/04/19 12:13 Pulse 81 06/04/19 13:47 Resp 21 H 06/04/19 13:47 BP 137/78 06/04/19 13:47 Pulse Ox 98 06/04/19 13:47 - Orders/Labs/Meds Orders: Active Orders 24 hr Category Date Time Status Cardiac Monitoring [RC] . DIRECTED Care 06/04/19 12:29 Active Oxygen Therapy [RC] ASDIRECTED Care 06/04/19 12:29 Active RT Aerosol Therapy [RC] ASDIRECTED Care 06/04/19 12:30 Active RT Aerosol Therapy [RC] ASDIRECTED Care 06/04/19 13:30 Active INFLUENZA A+B AG SCREEN [RM] Stat Lab 06/04/19 14:04 Ordered Azithromycin [Zithromax] Med 06/04/19 14:08 Once 500 mg PO Q24H ONE Potassium Chloride 10 meq Med 06/04/19 14:00 Active Sodium Chloride 0.9% [Normal Saline] 100 ml IV ONETIME Sodium Chloride 0.9% [Saline Flush] Med 06/04/19 12:30 Active 10 ml FLUSH ASDIRECTED PRN Sodium Chloride 0.9% [Saline Flush] Med 06/04/19 12:30 Active 2.5 ml FLUSH ASDIRECTED PRN Saline Lock Insert [OM.PC] Stat Oth 06/04/19 12:30 Ordered Medication Orders Potassium Chloride 10 meq/ (Sodium Chloride) 105 mls @ 105 mls/hr IV ONETIME ONE Stop: 06/04/19 14:59 Sodium Chloride (Saline Flush) 10 ml FLUSH ASDIRECTED PRN PRN Reason: Keep Vein Open Last Admin: 06/04/19 12:39 Dose: 10 ml Sodium Chloride (Saline Flush) 2.5 ml FLUSH ASDIRECTED PRN PRN Reason: Keep Vein Open Last Admin: 06/04/19 12:39 Dose: 2.5 ml Labs: Laboratory Tests 06/04/19 06/04/19 06/04/19 Range/Units 12:50 12:50 12:50 WBC 10.81 (4.0-11.0) K/uL RBC 4.09 L (4.30-5.90) M/uL Hgb 12.5 (12.0-16.0) g/dL Hct 36.8 (36.0-46.0) % MCV 90.0 (80.0-98.0) fL MCH 30.6 (27.0-32.0) pg MCHC 34.0 (31.0-37.0) g/dL RDW Std Deviation 52.2 (28.0-62.0) fl RDW Coeff of Hudson 16 H (11.0-15.0) % Plt Count 291 (150-400) K/uL MPV 9.20 (7.40-12.00) fL Neut % (Auto) 78.0 (48.0-80.0) % Lymph % (Auto) 18.2 (16.0-40.0) % [place] % (Auto) 3.6 (0.0-15.0) % Eos % (Auto) 0.0 (0.0-7.0) % Baso % (Auto) 0.2 (0.0-1.5) % Neut # (Auto) 8.4 H (1.4-5.7) K/uL Lymph # (Auto) 2.0 (0.6-2.4) K/uL [place] # (Auto) 0.4 (0.0-0.8) K/uL Eos # (Auto) 0.0 (0.0-0.7) K/uL Baso # (Auto) 0.0 (0.0-0.1) K/uL Nucleated RBC % 0.0 /100WBC Nucleated RBCs # 0 K/uL Sodium 130 L (136-145) mmol/L Potassium 2.6 L (3.5-5.1) mmol/L Chloride 89 L (98-107) mmol/L Carbon Dioxide 31.8 (21.0-32.0) mmol/L BUN 5 L (7.0-18.0) mg/dL Creatinine 0.7 (0.6-1.0) mg/dL Est Cr Clr Drug Dosing 81.30 mL/min Estimated GFR (MDRD) > 60.0 ml/min Glucose 91 (74-106) mg/dL Calcium 8.9 (8.5-10.1) mg/dL Total Bilirubin 0.5 (0.2-1.0) mg/dL AST 90 H (15-37) IU/L ALT 58 (14-63) IU/L Alkaline Phosphatase 211 H (46-116) U/L Troponin I < 0.050 (0.000-0.056) ng/mL Total Protein 7.2 (6.4-8.2) g/dL Albumin 3.0 L (3.4-5.0) g/dL Globulin 4.2 H (2.6-4.0) g/dL Albumin/Globulin Ratio 0.7 L (0.9-1.6) HCG, Qual NEGATIVE (NEG) Meds: Medications Generic Name Dose Route Start Last Admin Trade Name Freq PRN Reason Stop Dose Admin Potassium Chloride 10 meq/ 105 mls @ 105 mls/hr 06/04/19 14:00 Sodium Chloride IV 06/04/19 14:59 ONETIME ONE Sodium Chloride 10 ml 06/04/19 12:30 06/04/19 12:39 Saline Flush FLUSH 10 ml ASDIRECTED PRN Administration Keep Vein Open Sodium Chloride 2.5 ml 06/04/19 12:30 06/04/19 12:39 Saline Flush FLUSH 2.5 ml ASDIRECTED PRN Administration Keep Vein Open Discontinued Medications Generic Name Dose Route Start Last Admin Trade Name Freq PRN Reason Stop Dose Admin Albuterol/Ipratropium 3 ml 06/04/19 12:29 06/04/19 12:39 Duoneb 3.0-0.5 Mg/3 Ml NEB 06/04/19 12:30 3 ml ONETIME ONE Administration Albuterol/Ipratropium 3 ml 06/04/19 13:30 06/04/19 13:36 Duoneb 3.0-0.5 Mg/3 Ml NEB 06/04/19 13:31 3 ml ONETIME ONE Administration Methylprednisolone Sodium Succinate 125 mg 06/04/19 12:29 06/04/19 12:39 Solu-Medrol IVPUSH 06/04/19 12:30 125 mg ONETIME ONE Administration Potassium Chloride 20 meq 06/04/19 14:00 Klor-Con PO ASDIRECTED KAMERON Potassium Chloride 20 meq 06/04/19 13:55 Klor-Con M20 PO 06/04/19 13:56 ONETIME ONE - Re-Assessments/Exams Free Text/Narrative Re-Assessment/Exam: 06/04/19 14:12 Patient has a history of COPD. Symptoms likely secondary to COPD exacerbation. Hypoxia. No tachycardia no leg swelling, or other signs and symptoms to suggest PE. Her x-ray is not showing a consolidation. Given IV steroids, will give nebs. Found to have hypokalemia, we'll replete. EKG was normal sinus rhythm. Troponin negative. Discussed with Dr David adams admit to tele obs. Departure - Departure Time of Disposition: 14:14 Disposition: Admitted As Inpatient 66 Clinical Impression: COPD (chronic obstructive pulmonary disease) - Discharge Information *PRESCRIPTION DRUG MONITORING PROGRAM REVIEWED*: Not Applicable *COPY OF PRESCRIPTION DRUG MONITORING REPORT IN PATIENT SELINA: Not Applicable Referrals: PCP,None [Primary Care Provider] - Forms: ED Department Discharge Sepsis Event Note - Evaluation Sepsis Screening Result: No Definite Risk - Focused Exam Vital Signs: Vital Signs Temp Pulse Resp BP Pulse Ox 06/04/19 13:47 81 21 H 137/78 98 06/04/19 12:13 99.1 F 84 22 H 151/74 H 90 L Date Exam was Performed: 06/04/19 Time Exam was Performed: 14:11 - My Orders Last 24 Hours: My Active Orders 06/04/19 12:29 Cardiac Monitoring [RC] . DIRECTED Oxygen Therapy [RC] ASDIRECTED 06/04/19 12:30 RT Aerosol Therapy [RC] ASDIRECTED Sodium Chloride 0.9% [Saline Flush] 10 ml FLUSH ASDIRECTED PRN Sodium Chloride 0.9% [Saline Flush] 2.5 ml FLUSH ASDIRECTED PRN Saline Lock Insert [OM.PC] Stat 06/04/19 13:30 RT Aerosol Therapy [RC] ASDIRECTED 06/04/19 14:00 Potassium Chloride 10 meq Sodium Chloride 0.9% [Normal Saline] 100 ml IV ONETIME 06/04/19 14:04 INFLUENZA A+B AG SCREEN [RM] Stat 06/04/19 14:08 Azithromycin [Zithromax] 500 mg PO Q24H ONE - Assessment/Plan Last 24 Hours: My Active Orders 06/04/19 12:29 Cardiac Monitoring [RC] . DIRECTED Oxygen Therapy [RC] ASDIRECTED 06/04/19 12:30 RT Aerosol Therapy [RC] ASDIRECTED Sodium Chloride 0.9% [Saline Flush] 10 ml FLUSH ASDIRECTED PRN Sodium Chloride 0.9% [Saline Flush] 2.5 ml FLUSH ASDIRECTED PRN Saline Lock Insert [OM.PC] Stat 06/04/19 13:30 RT Aerosol Therapy [RC] ASDIRECTED 06/04/19 14:00 Potassium Chloride 10 meq Sodium Chloride 0.9% [Normal Saline] 100 ml IV ONETIME 06/04/19 14:04 INFLUENZA A+B AG SCREEN [RM] Stat 06/04/19 14:08 Azithromycin [Zithromax] 500 mg PO Q24H ONE
[2019-06-04] MEDS ORDERED: Albuterol 0.083% 2.5 MG/3 ML Neb Soln NEB PRN ×2 (16:40→16:49)
--- NOTE | 2019-06-04 16:55 | PCM.HP.2 ---
H&P History of Present Illness - General Date of Service: 06/04/19 Admit Problem/Dx: Admission Diagnosis/Problem Admission Diagnosis/Problem COPD, Severe chronic obstructive pulmonary disease Source of Information: Patient History Limitations: Reports: No Limitations - History of Present Illness Initial Comments - Free Text/Narative: 48-year-old female with PMH of HTN, smoker, presenting to ER for 5 days of worsening cough and dyspnea, pleuritic chest pain while coughing. Patient states that she checked her O2 sat at home and it was in low 70s, she tried using Nebulizers but didn't help her symptoms. Denied any changes in her leg swelling denied any hemoptysis. Symptoms have been worsening over the last 5 days. Currently taking seroids for her symptoms. Patient states she was recently tested for COPD" but reportedly her tests were normal although she was told her "oxygen level in her pulmonary arteries is low due to smoking". Patient states she feels her throat is itching and feels uncomfortable. Also has hoarse voice. Patient was found hypoxic in ER and started on . CXR was unremarkable. She was found to have low K. Patient is being admitted for management of acute hypoxic respiratory failure likely due to bronchitis vs COPD. Onset of Symptoms: Reports: Gradual Duration of Symptoms: Reports: Day(s): Chest Pain Pain Score (Numeric/FACES): 8 - Related Data Allergies/Adverse Reactions: Allergies Allergy/AdvReac Type Severity Reaction Status Date / Time No Known Allergies Allergy Verified 06/04/19 12:09 Home Medications: Home Meds Glycopyrrolate/Formoterol Fum [Bevespi Aerosphere Inhaler] 1 puff ASDIRECTED [History] Lisinopril/Hydrochlorothiazide [Lisinopril-Hctz 20-12.5 mg Tab] 1 each PO DAILY 04/06/18 [History] Multivitamin [Multi-Vitamin Daily] 1 each PO DAILY 02/08/19 [History] Omeprazole 20 mg PO DAILY 02/08/19 [History] Albuterol [Proventil Neb Soln] 2.5 mg INH Q4H #30 neb 02/13/19 [Rx] Amoxicillin/Clavulanate K [Augmentin 875-125 MG] 1 tab PO BID 5 Days #10 tablet 02/13/19 [Rx] Nicotine [Habitrol] 14 mg TRDERM DAILY #30 patch 02/13/19 [Rx] predniSONE [Prednisone] 40 mg PO DAILY 5 Days #10 tablet 02/13/19 [Rx] Past Medical History HEENT History: Reports: None Cardiovascular History: Reports: Hypertension Respiratory History: Reports: Pneumonia, Recurrent Other Respiratory History: Reports 20 yr history of smoking, current use 1/2 pack per day Gastrointestinal History: Reports: None Genitourinary History: Reports: None [employer] History: Reports: Neurological History: Reports: None Endocrine/Metabolic History: Reports: None Other Dermatologic History: "Something on top of Right foot unsure if eczema or what" - Infectious Disease History Infectious Disease History: Reports: None - Past Surgical History Other GI Surgeries/Procedures: Gastric Bypass, Lap Kathryn Female Surgical History: Reports: None Other Musculoskeletal Surgeries/Procedures:: 2 knee arthroscopies, Repair meniscus or meniscectomy Rt, Right Total Knee Replacement, REvision Right Knee Replacement 05/2014 Social & Family History - Family History Family Medical History: Noncontributory - Tobacco Use Smoking Status *Q: Current Every Day Smoker Years of Tobacco use: 20 Packs/Tins Daily: 0.5 - Caffeine Use Caffeine Use: Reports: Coffee, Tea H&P Review of Systems - Review of Systems: General: Reports: Malaise, Weakness, Fatigue, Decreased Appetite. Denies: Fever , Chills HEENT: Reports: Rhinitis, Sore Throat. Denies: Dysphasia, Ear Pain, Eye Pain Pulmonary: Reports: Shortness of Breath, Wheezing, Pleuritic Chest Pain, Cough, Sputum Cardiovascular: Reports: Dyspnea on Exertion. Denies: Chest Pain, Palpitations , Orthopnea, Lightheadedness Gastrointestinal: Reports: Anorexia. Denies: Abdominal Pain, Black Stool, Bloody Stool, Constipation, Decreased Appetite Genitourinary: Denies: Dysuria, Frequency, Burning, Pain Musculoskeletal: Denies: Neck Pain, Shoulder Pain, Arm Pain Skin: Denies: Cyanosis, Jaundice, Mottled Exam - Vital Signs Vital Signs: Last Vital Signs Temp 35.5 C L 06/04/19 15:40 Pulse 77 06/04/19 15:40 Resp 22 H 06/04/19 15:40 BP 115/59 L 06/04/19 15:40 Pulse Ox 94 L 06/04/19 15:40 Weight: 99.79 kg - Exam General: Alert, Oriented, Cooperative, Mild Distress HEENT: Conjunctiva Clear Neck: Supple, Trachea Midline Lungs: Decreased Breath Sounds, Wheezing Cardiovascular: Regular Rate, Tachycardia GI/Abdominal Exam: Normal Bowel Sounds, Soft, Non-Tender - Patient Data Lab Results Last 24 hrs: Laboratory Results - last 24 hr 06/04/19 06/04/19 06/04/19 Range/Units 12:50 12:50 12:50 WBC 10.81 (4.0-11.0) K/uL RBC 4.09 L (4.30-5.90) M/uL Hgb 12.5 (12.0-16.0) g/dL Hct 36.8 (36.0-46.0) % MCV 90.0 (80.0-98.0) fL MCH 30.6 (27.0-32.0) pg MCHC 34.0 (31.0-37.0) g/dL RDW Std Deviation 52.2 (28.0-62.0) fl RDW Coeff of [place] 16 H (11.0-15.0) % Plt Count 291 (150-400) K/uL MPV 9.20 (7.40-12.00) fL Neut % (Auto) 78.0 (48.0-80.0) % Lymph % (Auto) 18.2 (16.0-40.0) % [place] % (Auto) 3.6 (0.0-15.0) % Eos % (Auto) 0.0 (0.0-7.0) % Baso % (Auto) 0.2 (0.0-1.5) % Neut # (Auto) 8.4 H (1.4-5.7) K/uL Lymph # (Auto) 2.0 (0.6-2.4) K/uL [place] # (Auto) 0.4 (0.0-0.8) K/uL Eos # (Auto) 0.0 (0.0-0.7) K/uL Baso # (Auto) 0.0 (0.0-0.1) K/uL Nucleated RBC % 0.0 /100WBC Nucleated RBCs # 0 K/uL Sodium 130 L (136-145) mmol/L Potassium 2.6 L (3.5-5.1) mmol/L Chloride 89 L (98-107) mmol/L Carbon Dioxide 31.8 (21.0-32.0) mmol/L BUN 5 L (7.0-18.0) mg/dL Creatinine 0.7 (0.6-1.0) mg/dL Est Cr Clr Drug Dosing 81.30 mL/min Estimated GFR (MDRD) > 60.0 ml/min Glucose 91 (74-106) mg/dL Calcium 8.9 (8.5-10.1) mg/dL Total Bilirubin 0.5 (0.2-1.0) mg/dL AST 90 H (15-37) IU/L ALT 58 (14-63) IU/L Alkaline Phosphatase 211 H (46-116) U/L Troponin I < 0.050 (0.000-0.056) ng/mL Total Protein 7.2 (6.4-8.2) g/dL Albumin 3.0 L (3.4-5.0) g/dL Globulin 4.2 H (2.6-4.0) g/dL Albumin/Globulin Ratio 0.7 L (0.9-1.6) HCG, Qual NEGATIVE (NEG) Result Diagrams: 06/04/19 12:50 06/04/19 12:50 Sepsis Event Note - Evaluation Sepsis Screening Result: No Definite Risk - Focused Exam Vital Signs: Vital Signs Temp Pulse Resp BP Pulse Ox 06/04/19 15:40 35.5 C L 77 22 H 115/59 L 94 L 06/04/19 14:15 84 21 H 136/76 93 L 06/04/19 13:47 81 21 H 137/78 98 06/04/19 12:13 37.3 C 84 22 H 151/74 H 90 L Date Exam was Performed: 06/04/19 Time Exam was Performed: 19:47 - Problem List (1) Acute respiratory failure with hypoxia SNOMED Code(s): 00283248, 045758548 ICD Code: J96.01 - ACUTE RESPIRATORY FAILURE WITH HYPOXIA Status: Acute Current Visit: Yes (2) COPD (chronic obstructive pulmonary disease) SNOMED Code(s): 39095917 ICD Code: J44.9 - CHRONIC OBSTRUCTIVE PULMONARY DISEASE, UNSPECIFIED Status : Acute Current Visit: Yes Problem List Initiated/Reviewed/Updated: Yes Orders Last 24hrs: Active Orders 24 hr Category Date Time Status Admission Status [Patient Status] [ADT] Stat ADT 06/04/19 14:15 Active Ambulate [RC] ASDIRECTED Care 06/04/19 16:40 Active Antiembolic Devices [RC] PER UNIT ROUTINE Care 06/04/19 16:42 Active Cardiac Monitoring [RC] Q8H Care 06/04/19 12:29 Active Oxygen Therapy [RC] PRN Care 06/04/19 16:40 Active Pulse Oximetry [RC] PRN Care 06/04/19 16:40 Active RT Aerosol Therapy [RC] ASDIRECTED Care 06/04/19 12:30 Active RT Aerosol Therapy [RC] ASDIRECTED Care 06/04/19 13:30 Active RT Aerosol Therapy [RC] ASDIRECTED Care 06/04/19 16:42 Active VTE/DVT Education [RC] PER UNIT ROUTINE Care 06/04/19 16:40 Active Vital Signs [RC] Q4H Care 06/04/19 16:40 Active Heart Healthy Diet [DIET] Diet 06/04/19 Dinner Active INFLUENZA A+B AG SCREEN [RM] Stat Lab 06/04/19 14:04 Ordered Acetaminophen [Tylenol] Med 06/04/19 16:40 Active 650 mg PO Q4H PRN Albuterol [Proventil Neb Soln] Med 06/04/19 16:49 Ordered 2.5 mg NEB Q4H PRN Azithromycin [Zithromax] Med 06/05/19 09:00 Active 250 mg PO Q24H Lisinopril/Hydrochlorothiazide [Lisinopril-Hctz 20-12.5 Med 06/05/19 09:00 Ordered mg Tab] 1 each PO DAILY Nicotine [Habitrol] Med 06/05/19 09:00 Ordered 14 mg TRDERM DAILY Omeprazole Med 06/05/19 09:00 Ordered 20 mg PO DAILY Sodium Chloride 0.9% [Saline Flush] Med 06/04/19 12:30 Active 10 ml FLUSH ASDIRECTED PRN Sodium Chloride 0.9% [Saline Flush] Med 06/04/19 12:30 Active 2.5 ml FLUSH ASDIRECTED PRN methylPREDNISolone Sod Succ [Solu-MEDROL] Med 06/05/19 09:00 Active 40 mg IVPUSH Q12H Saline Lock Insert [OM.PC] Stat Oth 06/04/19 12:30 Ordered Sequential Compression Device [OM.PC] Per Unit Routine Oth 06/04/19 16:40 Ordered Resuscitation Status Routine Resus Stat 06/04/19 16:40 Ordered Medication Orders Acetaminophen (Tylenol) 650 mg PO Q4H PRN PRN Reason: Pain (Mild 1-3)/fever Albuterol (Proventil Neb Soln) 2.5 mg NEB Q4H PRN PRN Reason: Shortness Of Breath/wheezing Azithromycin (Zithromax) 250 mg PO Q24H [facility] Methylprednisolone Sodium Succinate (Solu-Medrol) 40 mg IVPUSH Q12H [facility] Nicotine (Habitrol) 14 mg TRDERM DAILY [facility] Non-Formulary Medication (Lisinopril/Hydrochlorothiazide [Lisinopril-Hctz 20- 12.5 Mg Tab]) 1 each PO DAILY [facility] Omeprazole (Omeprazole) 20 mg PO ACBREAKFAST [facility] Sodium Chloride (Saline Flush) 10 ml FLUSH ASDIRECTED PRN PRN Reason: Keep Vein Open Last Admin: 06/04/19 12:39 Dose: 10 ml Sodium Chloride (Saline Flush) 2.5 ml FLUSH ASDIRECTED PRN PRN Reason: Keep Vein Open Last Admin: 06/04/19 12:39 Dose: 2.5 ml Assessment/Plan Comment:: A/P: 48 y/o F admitted for acute hypoxic respiratory failure Possible COPD vs bronchitis cont IV steroids, wean down as clinically appropriate cont oxygenation via nasal cannula DuoNebs PRN shortness of breath Azithromycin 250 PO daily obtain flu swab resume home meds, monitor and replete electrolytes SCD for DVT ppx Dispo: d/c in 1-2 days
[2019-06-04] MEDS: Sodium Chloride 0.9% 1,000 ML IV SCH (17:49)
[2019-06-04] MEDS ORDERED: Albuterol/Ipratropium 3.0-0.5 MG/3 ML Neb Soln NEB PRN (19:26)
[2019-06-05] MEDS: Acetaminophen 325 MG Tab PO PRN ×2 (01:49→06:05)
[2019-06-05] MEDS: Sodium Chloride 0.9% 1,000 ML IV SCH ×3 (01:52→18:01)
[2019-06-05 05:48] LABS: BLOOD UREA NITROGEN,BUN 6 mg/dL (7.0-18.0); CARBON DIOXIDE,CO2 31.8 mmol/L (21.0-32.0); CHLORIDE,CL 97 mmol/L (98-107); GLUCOSE RANDOM 94 mg/dL (74-106); POTASSIUM,K 2.7 mmol/L (3.5-5.1); SODIUM,NA 136 mmol/L (136-145)
[2019-06-05] MEDS: Omeprazole 20 MG Cap.CR PO SCH (06:29)
[2019-06-05] MEDS: methylPREDNISolone Sodium Succinate 40 MG/1 ML SDV IVPUSH SCH ×2 (08:16→20:55)
[2019-06-05] MEDS: Nicotine 14 MG/24 Hr Patch TRDERM SCH (08:18)
[2019-06-05] MEDS: Azithromycin 250 MG Tab PO SCH (08:18)
[2019-06-05] MEDS: Potassium Chloride 20 MEQ Tab.ER PO SCH ×2 (08:19→12:00)
[2019-06-05] MEDS ORDERED: LISINOPRIL PO SCH ×2 (09:00→10:09)
[2019-06-05] MEDS ORDERED: HYDROCHLOROTHIAZIDE PO SCH ×2 (09:00→10:09)
[2019-06-05] MEDS: Benzonatate 100 MG Cap PO SCH ×2 (10:36→20:54)
[2019-06-05] MEDS: LISINOPRIL 10 MG TABLET PO SCH (10:37)
[2019-06-05] MEDS: Hydrochlorothiazide 12.5 MG Cap PO SCH (10:37)
--- NOTE | 2019-06-05 11:58 | PCM.PN ---
- General Info Date of Service: 06/05/19 Subjective Update: Feeling a little better but still short of breath and coughing. Having loose stools today. - Patient Data Vitals - Most Recent: Last Vital Signs Temp 36.3 C 06/05/19 07:10 Pulse 68 06/05/19 07:10 Resp 22 H 06/05/19 07:10 BP 135/79 06/05/19 10:37 Pulse Ox 94 L 06/05/19 07:10 Weight - Most Recent: 99.79 kg I&O - Last 24 Hours: Intake & Output 06/04/19 06/05/19 06/05/19 22:59 06:59 14:59 Intake Total 2178 Output Total 1650 Balance 528 Lab Results Last 24 Hours: Laboratory Results - last 24 hr 06/04/19 06/04/19 06/04/19 Range/Units 12:50 12:50 12:50 WBC 10.81 (4.0-11.0) K/uL RBC 4.09 L (4.30-5.90) M/uL Hgb 12.5 (12.0-16.0) g/dL Hct 36.8 (36.0-46.0) % MCV 90.0 (80.0-98.0) fL MCH 30.6 (27.0-32.0) pg MCHC 34.0 (31.0-37.0) g/dL RDW Std Deviation 52.2 (28.0-62.0) fl RDW Coeff of [place] 16 H (11.0-15.0) % Plt Count 291 (150-400) K/uL MPV 9.20 (7.40-12.00) fL Neut % (Auto) 78.0 (48.0-80.0) % Lymph % (Auto) 18.2 (16.0-40.0) % [place] % (Auto) 3.6 (0.0-15.0) % Eos % (Auto) 0.0 (0.0-7.0) % Baso % (Auto) 0.2 (0.0-1.5) % Neut # (Auto) 8.4 H (1.4-5.7) K/uL Lymph # (Auto) 2.0 (0.6-2.4) K/uL [place] # (Auto) 0.4 (0.0-0.8) K/uL Eos # (Auto) 0.0 (0.0-0.7) K/uL Baso # (Auto) 0.0 (0.0-0.1) K/uL Nucleated RBC % 0.0 /100WBC Nucleated RBCs # 0 K/uL Sodium 130 L (136-145) mmol/L Potassium 2.6 L (3.5-5.1) mmol/L Chloride 89 L (98-107) mmol/L Carbon Dioxide 31.8 (21.0-32.0) mmol/L BUN 5 L (7.0-18.0) mg/dL Creatinine 0.7 (0.6-1.0) mg/dL Est Cr Clr Drug Dosing 81.30 mL/min Estimated GFR (MDRD) > 60.0 ml/min Glucose 91 (74-106) mg/dL Calcium 8.9 (8.5-10.1) mg/dL Phosphorus (2.6-4.7) mg/dL Magnesium (1.8-2.4) mg/dL Total Bilirubin 0.5 (0.2-1.0) mg/dL AST 90 H (15-37) IU/L ALT 58 (14-63) IU/L Alkaline Phosphatase 211 H (46-116) U/L Troponin I < 0.050 (0.000-0.056) ng/mL Total Protein 7.2 (6.4-8.2) g/dL Albumin 3.0 L (3.4-5.0) g/dL Globulin 4.2 H (2.6-4.0) g/dL Albumin/Globulin Ratio 0.7 L (0.9-1.6) HCG, Qual NEGATIVE (NEG) 06/05/19 06/05/19 Range/Units 04:54 04:54 WBC 10.49 (4.0-11.0) K/uL RBC 3.81 L (4.30-5.90) M/uL Hgb 11.4 L (12.0-16.0) g/dL Hct 35.4 L (36.0-46.0) % MCV 92.9 (80.0-98.0) fL MCH 29.9 (27.0-32.0) pg MCHC 32.2 (31.0-37.0) g/dL RDW Std Deviation 54.7 (28.0-62.0) fl RDW Coeff of [place] 16 H (11.0-15.0) % Plt Count 319 (150-400) K/uL MPV 9.30 (7.40-12.00) fL Neut % (Auto) 75.2 (48.0-80.0) % Lymph % (Auto) 21.4 (16.0-40.0) % [place] % (Auto) 3.3 (0.0-15.0) % Eos % (Auto) 0.0 (0.0-7.0) % Baso % (Auto) 0.1 (0.0-1.5) % Neut # (Auto) 7.9 H (1.4-5.7) K/uL Lymph # (Auto) 2.2 (0.6-2.4) K/uL [place] # (Auto) 0.4 (0.0-0.8) K/uL Eos # (Auto) 0.0 (0.0-0.7) K/uL Baso # (Auto) 0.0 (0.0-0.1) K/uL Nucleated RBC % 0.0 /100WBC Nucleated RBCs # 0 K/uL Sodium 136 (136-145) mmol/L Potassium 2.7 L (3.5-5.1) mmol/L Chloride 97 L (98-107) mmol/L Carbon Dioxide 31.8 (21.0-32.0) mmol/L BUN 6 L (7.0-18.0) mg/dL Creatinine 0.7 (0.6-1.0) mg/dL Est Cr Clr Drug Dosing 81.30 mL/min Estimated GFR (MDRD) > 60.0 ml/min Glucose 94 (74-106) mg/dL Calcium 8.2 L (8.5-10.1) mg/dL Phosphorus 3.3 (2.6-4.7) mg/dL Magnesium 2.0 (1.8-2.4) mg/dL Total Bilirubin (0.2-1.0) mg/dL AST (15-37) IU/L ALT (14-63) IU/L Alkaline Phosphatase (46-116) U/L Troponin I (0.000-0.056) ng/mL Total Protein (6.4-8.2) g/dL Albumin (3.4-5.0) g/dL Globulin (2.6-4.0) g/dL Albumin/Globulin Ratio (0.9-1.6) HCG, Qual (NEG) Oziel Results Last 24 Hours: Microbiology 06/05/19 03:25 Influenza Type A Antigen Screen - Final Nasopharyngeal Swab NEGATIVE INFLUENZA A VIRUS AG REFERENCE RANGE: NEGATIVE Influenza Type B Antigen Screen - Final NEGATIVE INFLUENZA B VIRUS AG REFERENCE RANGE: NEGATIVE Med Orders - Current: Current Medications Acetaminophen (Tylenol) 650 mg PO Q4H PRN PRN Reason: Pain (Mild 1-3)/fever Last Admin: 06/05/19 06:05 Dose: 650 mg Albuterol/Ipratropium (Duoneb 3.0-0.5 Mg/3 Ml) 3 ml NEB Q4HRRT [facility] Azithromycin (Zithromax) 250 mg PO Q24H [facility] Last Admin: 06/05/19 08:18 Dose: 250 mg Benzonatate (Tessalon Perles) 200 mg PO BID [facility] Last Admin: 06/05/19 10:36 Dose: 200 mg Hydrochlorothiazide (Hydrochlorothiazide) 12.5 mg PO DAILY [facility] Last Admin: 06/05/19 10:37 Dose: 12.5 mg Sodium Chloride (Normal Saline) 1,000 mls @ 125 mls/hr IV ASDIRECTED [facility] Last Admin: 06/05/19 10:07 Dose: 125 mls/hr Lisinopril (Prinivil) 20 mg PO DAILY [facility] Last Admin: 06/05/19 10:37 Dose: 20 mg Methylprednisolone Sodium Succinate (Solu-Medrol) 40 mg IVPUSH Q12H [facility] Last Admin: 06/05/19 08:16 Dose: 40 mg Nicotine (Habitrol) 14 mg TRDERM DAILY [facility] Last Admin: 06/05/19 08:18 Dose: 14 mg Omeprazole (Omeprazole) 20 mg PO ACBREAKFAST [facility] Last Admin: 06/05/19 06:29 Dose: 20 mg Sodium Chloride (Saline Flush) 10 ml FLUSH ASDIRECTED PRN PRN Reason: Keep Vein Open Last Admin: 06/04/19 12:39 Dose: 10 ml Sodium Chloride (Saline Flush) 2.5 ml FLUSH ASDIRECTED PRN PRN Reason: Keep Vein Open Last Admin: 06/04/19 12:39 Dose: 2.5 ml Discontinued Medications Albuterol (Proventil Neb Soln) 2.5 mg NEB Q2H PRN PRN Reason: Shortness Of Breath/wheezing Albuterol (Proventil Neb Soln) 2.5 mg NEB Q4H PRN PRN Reason: Shortness Of Breath/wheezing Albuterol/Ipratropium (Duoneb 3.0-0.5 Mg/3 Ml) 3 ml NEB ONETIME ONE Stop: 06/04/19 12:30 Last Admin: 06/04/19 12:39 Dose: 3 ml Albuterol/Ipratropium (Duoneb 3.0-0.5 Mg/3 Ml) 3 ml NEB ONETIME ONE Stop: 06/04/19 13:31 Last Admin: 06/04/19 13:36 Dose: 3 ml Albuterol/Ipratropium (Duoneb 3.0-0.5 Mg/3 Ml) 3 ml NEB Q4HRRT PRN PRN Reason: Shortness of Breath Last Admin: 06/05/19 06:06 Dose: 3 ml Azithromycin (Zithromax) 500 mg PO Q24H ONE Stop: 06/04/19 14:09 Last Admin: 06/04/19 14:41 Dose: 500 mg Potassium Chloride 10 meq/ (Sodium Chloride) 105 mls @ 105 mls/hr IV ONETIME ONE Stop: 06/04/19 14:59 Last Admin: 06/04/19 14:44 Dose: 105 mls/hr Methylprednisolone Sodium Succinate (Solu-Medrol) 125 mg IVPUSH ONETIME ONE Stop: 06/04/19 12:30 Last Admin: 06/04/19 12:39 Dose: 125 mg Lisinopril/Hydrochlorothiazide [Lisinopril-Hctz 20- 12.5 M 1 each PO DAILY [facility] Last Admin: 06/05/19 10:37 Dose: Not Given Potassium Chloride (Klor-Con) 20 meq PO ASDIRECTED [facility] Potassium Chloride (Klor-Con M20) 20 meq PO ONETIME ONE Stop: 06/04/19 13:56 Last Admin: 06/04/19 14:16 Dose: 20 meq Potassium Chloride (Klor-Con M20) 20 meq PO ONETIME ONE Stop: 06/04/19 16:39 Last Admin: 06/04/19 16:56 Dose: 20 meq Potassium Chloride (Klor-Con M20) 40 meq PO Q3H [facility] Stop: 06/05/19 11:16 Last Admin: 06/05/19 08:19 Dose: 40 meq - Exam General: Alert, Oriented, Cooperative, No Acute Distress Lungs: Decreased Breath Sounds (expiratory wheezes in upper lung trevino.), Other GI/Abdominal Exam: Normal Bowel Sounds, Soft, Non-Tender, No Distention Extremities: Normal Inspection, No Pedal Edema Skin: Warm, Dry Sepsis Event Note - Evaluation Sepsis Screening Result: No Definite Risk - Focused Exam Vital Signs: Vital Signs Temp Pulse Resp BP BP Pulse Ox 06/05/19 10:37 135/79 06/05/19 07:10 36.3 C 68 22 H 112/64 94 L 06/05/19 06:12 90 19 94 L 06/05/19 06:07 102 H 24 H 91 L 06/05/19 06:03 35.6 C L 101 H 18 126/62 94 L 06/05/19 01:49 18 94 L 06/05/19 00:47 36.1 C 65 16 105/53 L 93 L Date Exam was Performed: 06/05/19 Time Exam was Performed: 14:30 - Problem List Review Problem List Initiated/Reviewed/Updated: Yes - My Orders Last 24 Hours: My Active Orders 06/05/19 09:30 Benzonatate [Tessalon Perles] 200 mg PO BID 06/05/19 Lunch Regular Diet [DIET] - Assessment Assessment:: A: 1. Suspected COPD exacerbation 2. C. Diff Colitis 3. Hypokalemia P: 1. Will treat for C. diff colitis with vancomycin 125 mg PO QID. In addition, scheduled Duonebs for now since wheezing. Continue methylprednisolone and will replace potassium as needed. Dispo: 1-2 days. - Plan Plan:: A/P: 48 y/o F admitted for acute hypoxic respiratory failure Possible COPD vs bronchitis cont IV steroids, wean down as clinically appropriate cont oxygenation via nasal cannula DuoNebs PRN shortness of breath Azithromycin 250 PO daily obtain flu swab resume home meds, monitor and replete electrolytes SCD for DVT ppx Dispo: d/c in 1-2 days
[2019-06-05] MEDS: Albuterol/Ipratropium 3.0-0.5 MG/3 ML Neb Soln NEB SCH ×3 (13:18→21:38)
[2019-06-05] MEDS: Vancomycin 125 MG Cap PO SCH ×2 (14:50→18:01)
[2019-06-06] MEDS: Vancomycin 125 MG Cap PO SCH ×4 (00:01→17:59)
[2019-06-06] MEDS: Albuterol/Ipratropium 3.0-0.5 MG/3 ML Neb Soln NEB SCH ×6 (01:44→21:28)
[2019-06-06] MEDS: Sodium Chloride 0.9% 1,000 ML IV SCH ×3 (01:44→17:59)
[2019-06-06] MEDS: Omeprazole 20 MG Cap.CR PO SCH (06:31)
[2019-06-06 07:28] LABS: BLOOD UREA NITROGEN,BUN 4 mg/dL (7.0-18.0); CARBON DIOXIDE,CO2 27.9 mmol/L (21.0-32.0); CHLORIDE,CL 101 mmol/L (98-107); GLUCOSE RANDOM 114 mg/dL (74-106); POTASSIUM,K 3.6 mmol/L (3.5-5.1); SODIUM,NA 139 mmol/L (136-145)
[2019-06-06] MEDS ORDERED: Potassium Chloride 20 MEQ Tab.ER PO ONE (08:10)
[2019-06-06] MEDS: LISINOPRIL 10 MG TABLET PO SCH (09:15)
[2019-06-06] MEDS: Hydrochlorothiazide 12.5 MG Cap PO SCH (09:15)
[2019-06-06] MEDS: Benzonatate 100 MG Cap PO SCH ×2 (09:17→21:32)
[2019-06-06] MEDS: Azithromycin 250 MG Tab PO SCH (09:17)
[2019-06-06] MEDS: Nicotine 14 MG/24 Hr Patch TRDERM SCH (09:22)
[2019-06-06] MEDS: methylPREDNISolone Sodium Succinate 40 MG/1 ML SDV IVPUSH SCH ×2 (09:25→21:33)
[2019-06-06] MEDS: diphenhydrAMINE 50 MG/ML SDV IVPUSH PRN ×2 (11:37→18:00)
--- NOTE | 2019-06-06 12:04 | PCM.PN ---
- General Info Date of Service: 06/06/19 Subjective Update: No acute events overnight. Still having frequent watery stools. No abdominal pain. Eating well. No nausea, vomiting. - Patient Data Vitals - Most Recent: Last Vital Signs Temp 36.4 C 06/06/19 09:00 Pulse 69 06/06/19 09:00 Resp 12 06/06/19 09:00 BP 173/77 H 06/06/19 09:15 Pulse Ox 95 06/06/19 09:00 Weight - Most Recent: 99.79 kg I&O - Last 24 Hours: Intake & Output 06/05/19 06/06/19 06/06/19 22:59 06:59 14:59 Intake Total 2520 2587 Output Total 2700 1800 Balance -180 787 Lab Results Last 24 Hours: Laboratory Results - last 24 hr 06/06/19 06/06/19 Range/Units 06:45 06:45 WBC 10.03 (4.0-11.0) K/uL RBC 3.88 L (4.30-5.90) M/uL Hgb 11.8 L (12.0-16.0) g/dL Hct 37.5 (36.0-46.0) % MCV 96.6 (80.0-98.0) fL MCH 30.4 (27.0-32.0) pg MCHC 31.5 (31.0-37.0) g/dL RDW Std Deviation 59.3 (28.0-62.0) fl RDW Coeff of Hudson 17 H (11.0-15.0) % Plt Count 373 (150-400) K/uL MPV 9.30 (7.40-12.00) fL Neut % (Auto) 76.5 (48.0-80.0) % Lymph % (Auto) 20.6 (16.0-40.0) % Clinch % (Auto) 2.8 (0.0-15.0) % Eos % (Auto) 0.0 (0.0-7.0) % Baso % (Auto) 0.1 (0.0-1.5) % Neut # (Auto) 7.7 H (1.4-5.7) K/uL Lymph # (Auto) 2.1 (0.6-2.4) K/uL Clinch # (Auto) 0.3 (0.0-0.8) K/uL Eos # (Auto) 0.0 (0.0-0.7) K/uL Baso # (Auto) 0.0 (0.0-0.1) K/uL Nucleated RBC % 0.0 /100WBC Nucleated RBCs # 0 K/uL Sodium 139 (136-145) mmol/L Potassium 3.6 (3.5-5.1) mmol/L Chloride 101 (98-107) mmol/L Carbon Dioxide 27.9 (21.0-32.0) mmol/L BUN 4 L (7.0-18.0) mg/dL Creatinine 0.8 (0.6-1.0) mg/dL Est Cr Clr Drug Dosing 71.14 mL/min Estimated GFR (MDRD) > 60.0 ml/min Glucose 114 H (74-106) mg/dL Calcium 8.4 L (8.5-10.1) mg/dL Total Bilirubin 0.3 (0.2-1.0) mg/dL AST 78 H (15-37) IU/L ALT 60 (14-63) IU/L Alkaline Phosphatase 172 H (46-116) U/L Total Protein 6.6 (6.4-8.2) g/dL Albumin 2.6 L (3.4-5.0) g/dL Globulin 4.0 (2.6-4.0) g/dL Albumin/Globulin Ratio 0.7 L (0.9-1.6) [place] Results Last 24 Hours: Microbiology 06/05/19 11:56 Clostridioides difficile (PCR) - Final Stool / Feces 06/05/19 11:55 Shiga Toxin I & II - Final Stool / Feces 06/05/19 11:56 C. difficile Antigen & Toxins A,B - Final Stool / Feces Med Orders - Current: Current Medications Acetaminophen (Tylenol) 650 mg PO Q4H PRN PRN Reason: Pain (Mild 1-3)/fever Last Admin: 06/05/19 06:05 Dose: 650 mg Albuterol/Ipratropium (Duoneb 3.0-0.5 Mg/3 Ml) 3 ml NEB Q4HRRT [facility] Last Admin: 06/06/19 10:14 Dose: 3 ml Benzonatate (Tessalon Perles) 200 mg PO BID [facility] Last Admin: 06/06/19 09:17 Dose: 200 mg Diphenhydramine HCl (Benadryl) 25 mg IVPUSH Q6H PRN PRN Reason: rash,itching Last Admin: 06/06/19 11:37 Dose: 25 mg Guaifenesin/Codeine Phosphate (Robitussin Ac) 5 ml PO Q6H PRN PRN Reason: Cough Hydrochlorothiazide (Hydrochlorothiazide) 12.5 mg PO DAILY [facility] Last Admin: 06/06/19 09:15 Dose: 12.5 mg Sodium Chloride (Normal Saline) 1,000 mls @ 125 mls/hr IV ASDIRECTED [facility] Last Admin: 06/06/19 09:30 Dose: 125 mls/hr Lisinopril (Prinivil) 20 mg PO DAILY [facility] Last Admin: 06/06/19 09:15 Dose: 20 mg Methylprednisolone Sodium Succinate (Solu-Medrol) 40 mg IVPUSH Q12H [facility] Last Admin: 06/06/19 09:25 Dose: 40 mg Nicotine (Habitrol) 14 mg TRDERM DAILY [facility] Last Admin: 06/06/19 09:22 Dose: 14 mg Omeprazole (Omeprazole) 20 mg PO ACBREAKFAST [facility] Last Admin: 06/06/19 06:31 Dose: 20 mg Sodium Chloride (Saline Flush) 10 ml FLUSH ASDIRECTED PRN PRN Reason: Keep Vein Open Last Admin: 06/04/19 12:39 Dose: 10 ml Sodium Chloride (Saline Flush) 2.5 ml FLUSH ASDIRECTED PRN PRN Reason: Keep Vein Open Last Admin: 06/04/19 12:39 Dose: 2.5 ml Vancomycin HCl (Vancomycin) 125 mg PO QID [facility] Stop: 06/15/19 14:31 Last Admin: 06/06/19 11:12 Dose: 125 mg Discontinued Medications Albuterol (Proventil Neb Soln) 2.5 mg NEB Q2H PRN PRN Reason: Shortness Of Breath/wheezing Albuterol (Proventil Neb Soln) 2.5 mg NEB Q4H PRN PRN Reason: Shortness Of Breath/wheezing Albuterol/Ipratropium (Duoneb 3.0-0.5 Mg/3 Ml) 3 ml NEB ONETIME ONE Stop: 06/04/19 12:30 Last Admin: 06/04/19 12:39 Dose: 3 ml Albuterol/Ipratropium (Duoneb 3.0-0.5 Mg/3 Ml) 3 ml NEB ONETIME ONE Stop: 06/04/19 13:31 Last Admin: 06/04/19 13:36 Dose: 3 ml Albuterol/Ipratropium (Duoneb 3.0-0.5 Mg/3 Ml) 3 ml NEB Q4HRRT PRN PRN Reason: Shortness of Breath Last Admin: 06/05/19 06:06 Dose: 3 ml Azithromycin (Zithromax) 500 mg PO Q24H ONE Stop: 06/04/19 14:09 Last Admin: 06/04/19 14:41 Dose: 500 mg Azithromycin (Zithromax) 250 mg PO Q24H [facility] Last Admin: 06/06/19 09:17 Dose: 250 mg Potassium Chloride 10 meq/ (Sodium Chloride) 105 mls @ 105 mls/hr IV ONETIME ONE Stop: 06/04/19 14:59 Last Admin: 06/04/19 14:44 Dose: 105 mls/hr Methylprednisolone Sodium Succinate (Solu-Medrol) 125 mg IVPUSH ONETIME ONE Stop: 06/04/19 12:30 Last Admin: 06/04/19 12:39 Dose: 125 mg Lisinopril/Hydrochlorothiazide [Lisinopril-Hctz 20- 12.5 M 1 each PO DAILY [facility] Last Admin: 06/05/19 10:37 Dose: Not Given Potassium Chloride (Klor-Con) 20 meq PO ASDIRECTED [facility] Potassium Chloride (Klor-Con M20) 20 meq PO ONETIME ONE Stop: 06/04/19 13:56 Last Admin: 06/04/19 14:16 Dose: 20 meq Potassium Chloride (Klor-Con M20) 20 meq PO ONETIME ONE Stop: 06/04/19 16:39 Last Admin: 06/04/19 16:56 Dose: 20 meq Potassium Chloride (Klor-Con M20) 40 meq PO Q3H [facility] Stop: 06/05/19 11:16 Last Admin: 06/05/19 12:00 Dose: 40 meq Potassium Chloride (Klor-Con M20) 40 meq PO ONETIME ONE Stop: 06/06/19 08:11 Last Admin: 06/06/19 09:18 Dose: 40 meq - Exam General: Alert, Oriented, Cooperative, No Acute Distress Lungs: Clear to Auscultation, Decreased Breath Sounds, Rhonchi. No: Wheezing Cardiovascular: Regular Rate, Regular Rhythm GI/Abdominal Exam: Normal Bowel Sounds, Soft, Non-Tender Extremities: Normal Inspection, No Pedal Edema Skin: Warm, Dry Sepsis Event Note - Evaluation Sepsis Screening Result: No Definite Risk - Focused Exam Vital Signs: Vital Signs Temp Temp Pulse Resp BP BP Pulse Ox 06/06/19 09:15 173/77 H 06/06/19 09:00 36.4 C 69 12 164/79 H 95 06/06/19 08:30 06/06/19 08:00 36.4 C 71 20 164/79 H 95 06/06/19 04:30 36.1 C 76 22 H 134/76 98 06/06/19 01:21 35.6 C L 65 18 123/62 95 Pulse Ox 06/06/19 09:15 06/06/19 09:00 06/06/19 08:30 95 06/06/19 08:00 06/06/19 04:30 06/06/19 01:21 Date Exam was Performed: 06/06/19 Time Exam was Performed: 18:16 - Problem List Review Problem List Initiated/Reviewed/Updated: Yes - My Orders Last 24 Hours: My Active Orders 06/05/19 14:30 Vancomycin 125 mg PO QID 06/06/19 12:02 Codeine/guaiFENesin [Robitussin AC] 5 ml PO Q6H PRN 06/07/19 05:11 CBC WITH AUTO DIFF [HEME] AM COMPREHENSIVE METABOLIC PN,CMP [CHEM] AM - Plan Plan:: A: 1. Suspected COPD exacerbation 2. C. Diff Colitis 3. Thoracic rash 4. Hypertension P: 1. Continue with Vancomycin 125 mg PO QID. Methylprednisolone 40 mg IV BID, Duonebs PRN. Will add Benadryl PRN due to thoracic rash. Not sure if antibiotics is causing the rash. Will discontinue azithromycin. Will continue to monitor for now. Dispo: 1-2 days.
[2019-06-06] MEDS: Codeine/guaiFENesin 100-10 MG/5 ML Syrup 5 ML Cup PO PRN (18:02)
[2019-06-07] MEDS: Vancomycin 125 MG Cap PO SCH ×3 (00:10→12:53)
[2019-06-07] MEDS: diphenhydrAMINE 50 MG/ML SDV IVPUSH PRN ×3 (00:10→12:53)
[2019-06-07] MEDS: Sodium Chloride 0.9% 1,000 ML IV SCH ×2 (01:38→09:23)
[2019-06-07] MEDS: Albuterol/Ipratropium 3.0-0.5 MG/3 ML Neb Soln NEB SCH ×3 (01:39→09:43)
[2019-06-07 06:30] LABS: BLOOD UREA NITROGEN,BUN 5 mg/dL (7.0-18.0); CARBON DIOXIDE,CO2 29.8 mmol/L (21.0-32.0); CHLORIDE,CL 104 mmol/L (98-107); GLUCOSE RANDOM 117 mg/dL (74-106); POTASSIUM,K 3.9 mmol/L (3.5-5.1); SODIUM,NA 144 mmol/L (136-145)
[2019-06-07] MEDS: Codeine/guaiFENesin 100-10 MG/5 ML Syrup 5 ML Cup PO PRN (06:41)
[2019-06-07] MEDS: Omeprazole 20 MG Cap.CR PO SCH (06:41)
[2019-06-07] MEDS: Benzonatate 100 MG Cap PO SCH (08:46)
[2019-06-07] MEDS: Nicotine 14 MG/24 Hr Patch TRDERM SCH (08:47)
[2019-06-07] MEDS: LISINOPRIL 10 MG TABLET PO SCH (08:47)
[2019-06-07] MEDS ORDERED: Hydrochlorothiazide 12.5 MG Cap PO SCH (09:00)
[2019-06-07] MEDS: methylPREDNISolone Sodium Succinate 40 MG/1 ML SDV IVPUSH SCH (09:17)
[2019-06-07 13:01] VITALS: BP 159/80; PULSE 66
--- NOTE | 2019-06-07 13:10 | PCM.DCSUM1 ---
Discharge Summary - Hospital Course Free Text/Narrative:: 48 y/o female with history of tobacco abuse who presented to the ER complaining of worsening shortness of breath. Admitted for suspected COPD exacerbation. Started on azithromycin, methylprednisolone, Duoneb treatments. Did relatively well with her wheezing improving. During the course of her hospitalization she was diagnosed with C. diff colitis and was started on Vancomycin 125 mg PO QID. She developed a rash on her abdomen so azithromycin was discontinued and was riven benadryl which seemed to resolve her rash. She was discharged home on prednisone 20 mg PO for 5 days, Bevespi, Robitussin AC, Nicotine patches, Vancomycin 125 mg PO QID for 8 additional days. She was advised to abstain from tobacco use and follow-up with her PCP and scheduled follow-up with pulmonology. - Discharge Data Discharge Date: 06/07/19 Discharge Disposition: Home, Self-Care 01 Condition: Fair - Referral to Home Health Primary Care Physician: PCP None - Patient Instructions Diet: Regular Diet as Tolerated, Drink 8-10+ Glasses/Day Activity: As Tolerated - Discharge Plan *PRESCRIPTION DRUG MONITORING PROGRAM REVIEWED*: Not Applicable *COPY OF PRESCRIPTION DRUG MONITORING REPORT IN PATIENT SELINA: Not Applicable Prescriptions/Med Rec: Codeine/guaiFENesin [Robitussin AC] 5 ml PO Q6H PRN #1 bottle PRN Reason: Cough Glycopyrrolate/Formoterol Fum [Bevespi Aerosphere Inhaler] 2 puff IH BID #1 unit Nicotine [Habitrol] 14 mg TRDERM DAILY #30 patch predniSONE [Prednisone] 20 mg PO DAILY 5 Days #5 tablet Vancomycin 125 mg PO QID 8 Days #32 cap Home Medications: Home Meds Glycopyrrolate/Formoterol Fum [Bevespi Aerosphere Inhaler] 1 puff ASDIRECTED [History] Lisinopril/Hydrochlorothiazide [Lisinopril-Hctz 20-12.5 mg Tab] 1 each PO DAILY 04/06/18 [History] Multivitamin [Multi-Vitamin Daily] 1 each PO DAILY 02/08/19 [History] Omeprazole 20 mg PO DAILY 02/08/19 [History] Albuterol [Proventil Neb Soln] 2.5 mg INH Q4H #30 neb 02/13/19 [Rx] Codeine/guaiFENesin [Robitussin AC] 5 ml PO Q6H PRN #1 bottle 06/07/19 [Rx] Glycopyrrolate/Formoterol Fum [Bevespi Aerosphere Inhaler] 2 puff IH BID #1 unit 06/07/19 [Rx] Nicotine [Habitrol] 14 mg TRDERM DAILY #30 patch 06/07/19 [Rx] Vancomycin 125 mg PO QID 8 Days #32 cap 06/07/19 [Rx] predniSONE [Prednisone] 20 mg PO DAILY 5 Days #5 tablet 06/07/19 [Rx] Patient Handouts: Chronic Obstructive Pulmonary Disease, Acute Respiratory Failure, Adult, Codeine; Guaifenesin; Pseudoephedrine oral solution or syrup, Prednisone tablets, Glycopyrrolate; Formoterol inhalation aerosol, Vancomycin capsules Referrals: Lisbet Durant PA [Physician [employer]ending Machine [employer]ic] - 06/12/19 1:30 pm - Discharge Summary/Plan Comment DC Time >30 min.: No - Patient Data Vitals - Most Recent: Last Vital Signs Temp 36.4 C 06/07/19 11:53 Pulse 66 06/07/19 13:00 Resp 18 06/07/19 13:00 BP 159/80 H 06/07/19 13:00 Pulse Ox 96 06/07/19 13:00 Weight - Most Recent: 99.79 kg I&O - Last 24 hours: Intake & Output 06/06/19 06/07/19 06/07/19 22:59 06:59 14:59 Intake Total 2920 Output Total 1600 Balance 1320 Lab Results - Last 24 hrs: Laboratory Results - last 24 hr 06/07/19 06/07/19 Range/Units 06:07 06:07 WBC 12.31 H (4.0-11.0) K/uL RBC 3.99 L (4.30-5.90) M/uL Hgb 12.4 (12.0-16.0) g/dL Hct 39.1 (36.0-46.0) % MCV 98.0 (80.0-98.0) fL MCH 31.1 (27.0-32.0) pg MCHC 31.7 (31.0-37.0) g/dL RDW Std Deviation 59.5 (28.0-62.0) fl RDW Coeff of [place] 17 H (11.0-15.0) % Plt Count 439 H (150-400) K/uL MPV 9.20 (7.40-12.00) fL Neut % (Auto) 73.4 (48.0-80.0) % Lymph % (Auto) 23.5 (16.0-40.0) % Real % (Auto) 2.8 (0.0-15.0) % Eos % (Auto) 0.1 (0.0-7.0) % Baso % (Auto) 0.2 (0.0-1.5) % Neut # (Auto) 9.0 H (1.4-5.7) K/uL Lymph # (Auto) 2.9 H (0.6-2.4) K/uL Real # (Auto) 0.3 (0.0-0.8) K/uL Eos # (Auto) 0.0 (0.0-0.7) K/uL Baso # (Auto) 0.0 (0.0-0.1) K/uL Nucleated RBC % 0.0 /100WBC Nucleated RBCs # 0 K/uL Sodium 144 (136-145) mmol/L Potassium 3.9 (3.5-5.1) mmol/L Chloride 104 (98-107) mmol/L Carbon Dioxide 29.8 (21.0-32.0) mmol/L BUN 5 L (7.0-18.0) mg/dL Creatinine 0.9 (0.6-1.0) mg/dL Est Cr Clr Drug Dosing 63.24 mL/min Estimated GFR (MDRD) > 60.0 ml/min Glucose 117 H (74-106) mg/dL Calcium 8.5 (8.5-10.1) mg/dL [place] Results - Last 24 hrs: Microbiology 06/05/19 11:55 Stool Culture - Preliminary Stool / Feces Shiga Toxin I & II - Final 06/05/19 11:56 Clostridioides difficile (PCR) - Final Stool / Feces Med Orders - Current: Current Medications Acetaminophen (Tylenol) 650 mg PO Q4H PRN PRN Reason: Pain (Mild 1-3)/fever Last Admin: 06/05/19 06:05 Dose: 650 mg Albuterol/Ipratropium (Duoneb 3.0-0.5 Mg/3 Ml) 3 ml NEB Q4HRRT [facility] Last Admin: 06/07/19 09:43 Dose: 3 ml Benzonatate (Tessalon Perles) 200 mg PO BID [facility] Last Admin: 06/07/19 08:46 Dose: 200 mg Diphenhydramine HCl (Benadryl) 25 mg IVPUSH Q6H PRN PRN Reason: rash,itching Last Admin: 06/07/19 12:53 Dose: 25 mg Guaifenesin/Codeine Phosphate (Robitussin Ac) 5 ml PO Q6H PRN PRN Reason: Cough Last Admin: 06/07/19 06:41 Dose: 5 ml Hydrochlorothiazide (Hydrochlorothiazide) 25 mg PO DAILY [facility] Last Admin: 06/07/19 08:47 Dose: 25 mg Sodium Chloride (Normal Saline) 1,000 mls @ 125 mls/hr IV ASDIRECTED [facility] Last Admin: 06/07/19 09:23 Dose: 125 mls/hr Lisinopril (Prinivil) 20 mg PO DAILY [facility] Last Admin: 06/07/19 08:47 Dose: 20 mg Methylprednisolone Sodium Succinate (Solu-Medrol) 40 mg IVPUSH Q12H [facility] Last Admin: 06/07/19 09:17 Dose: 40 mg Nicotine (Habitrol) 14 mg TRDERM DAILY [facility] Last Admin: 06/07/19 08:47 Dose: 14 mg Omeprazole (Omeprazole) 20 mg PO ACBREAKFAST [facility] Last Admin: 06/07/19 06:41 Dose: 20 mg Sodium Chloride (Saline Flush) 10 ml FLUSH ASDIRECTED PRN PRN Reason: Keep Vein Open Last Admin: 06/04/19 12:39 Dose: 10 ml Sodium Chloride (Saline Flush) 2.5 ml FLUSH ASDIRECTED PRN PRN Reason: Keep Vein Open Last Admin: 06/04/19 12:39 Dose: 2.5 ml Vancomycin HCl (Vancomycin) 125 mg PO QID [facility] Stop: 06/15/19 14:31 Last Admin: 06/07/19 12:53 Dose: 125 mg Discontinued Medications Albuterol (Proventil Neb Soln) 2.5 mg NEB Q2H PRN PRN Reason: Shortness Of Breath/wheezing Albuterol (Proventil Neb Soln) 2.5 mg NEB Q4H PRN PRN Reason: Shortness Of Breath/wheezing Albuterol/Ipratropium (Duoneb 3.0-0.5 Mg/3 Ml) 3 ml NEB ONETIME ONE Stop: 06/04/19 12:30 Last Admin: 06/04/19 12:39 Dose: 3 ml Albuterol/Ipratropium (Duoneb 3.0-0.5 Mg/3 Ml) 3 ml NEB ONETIME ONE Stop: 06/04/19 13:31 Last Admin: 06/04/19 13:36 Dose: 3 ml Albuterol/Ipratropium (Duoneb 3.0-0.5 Mg/3 Ml) 3 ml NEB Q4HRRT PRN PRN Reason: Shortness of Breath Last Admin: 06/05/19 06:06 Dose: 3 ml Azithromycin (Zithromax) 500 mg PO Q24H ONE Stop: 06/04/19 14:09 Last Admin: 06/04/19 14:41 Dose: 500 mg Azithromycin (Zithromax) 250 mg PO Q24H [facility] Last Admin: 06/06/19 09:17 Dose: 250 mg Hydrochlorothiazide (Hydrochlorothiazide) 12.5 mg PO DAILY [facility] Last Admin: 06/06/19 09:15 Dose: 12.5 mg Potassium Chloride 10 meq/ (Sodium Chloride) 105 mls @ 105 mls/hr IV ONETIME ONE Stop: 06/04/19 14:59 Last Admin: 06/04/19 14:44 Dose: 105 mls/hr Methylprednisolone Sodium Succinate (Solu-Medrol) 125 mg IVPUSH ONETIME ONE Stop: 06/04/19 12:30 Last Admin: 06/04/19 12:39 Dose: 125 mg Lisinopril/Hydrochlorothiazide [Lisinopril-Hctz 20- 12.5 M 1 each PO DAILY [facility] Last Admin: 06/05/19 10:37 Dose: Not Given Potassium Chloride (Klor-Con) 20 meq PO ASDIRECTED [facility] Potassium Chloride (Klor-Con M20) 20 meq PO ONETIME ONE Stop: 06/04/19 13:56 Last Admin: 06/04/19 14:16 Dose: 20 meq Potassium Chloride (Klor-Con M20) 20 meq PO ONETIME ONE Stop: 06/04/19 16:39 Last Admin: 06/04/19 16:56 Dose: 20 meq Potassium Chloride (Klor-Con M20) 40 meq PO Q3H [facility] Stop: 06/05/19 11:16 Last Admin: 06/05/19 12:00 Dose: 40 meq Potassium Chloride (Klor-Con M20) 40 meq PO ONETIME ONE Stop: 06/06/19 08:11 Last Admin: 06/06/19 09:18 Dose: 40 meq
== END 2019-06-07 04:15 | disposition home or self-care (01) | DRG 140 ==
LOC: MW.ED 12:00 → MW.MS 14:58 → UNDOADMOB 14:58 → OBSVTOIN 06-06 10:40 → MW.MS 06-06 12:24
PROVIDERS: ADMIT Student in an Organized Health Care Education/Training Program; ATTEND Student in an Organized Health Care Education/Training Program
DX: J44.1 Chronic obstructive pulmonary disease with (acute) exacerbation (principal); A04.72 Enterocolitis due to Clostridium difficile, not specified as recurrent; J96.01 Acute respiratory failure with hypoxia; I10 Essential (primary) hypertension; Z96.651 Presence of right artificial knee joint; F17.210 Nicotine dependence, cigarettes, uncomplicated; E87.6 Hypokalemia; R21 Rash and other nonspecific skin eruption; Z79.2 Long term (current) use of antibiotics; Z90.49 Acquired absence of other specified parts of digestive tract; Z79.51 Long term (current) use of inhaled steroids; Z79.899 Other long term (current) drug therapy; Z98.84 Bariatric surgery status
CPT/HCPCS: 36415; 71045; 71045-26; 80048; 80053; 83735; 84100; 84484; 84703; 85025; 87045; 87046; 87324; 87493; 87804; 87899; 93005; 94640; 99285-25; A9270-GY; J1200; J2920; J2930; J3480; J7030; J7050; J7620-GY

== ENCOUNTER 2020-01-22 11:58 | Emergency (ER) | payer BC, OTHER ==
--- NOTE | 2020-01-22 12:30 | EDM.PDOC ---
ED HPI GENERAL MEDICAL PROBLEM - General Chief Complaint: Respiratory Problem Stated Complaint: SOB CHEST PAIN Time Seen by Provider: 01/22/20 12:05 Source of Information: Reports: Patient, Old Records History Limitations: Reports: No Limitations - History of Present Illness INITIAL COMMENTS - FREE TEXT/NARRATIVE: This is a very pleasant 49-year-old female the past medical history of COPD and hypertension along with tobacco use presenting with shortness of breath and low oxygen levels. She reports a 3-day history of a nonproductive cough, hoarse voice, fatigue, and body aches. Does report multiple contacts with people that are ill with COVID- 19. Today, she was feeling more short of breath than usual. She was ambulating around her home and noted that her pulse oximetry readings dipped into the 60s at one point (though she was not feeling markedly dyspneic). She took one dose of her home albuterol which seemed to help. She was concerned about the low oxygen levels so she decided to come to the emergency department. Here she does complain of some mild shortness of breath. She also complains of some mild chest pain when taking a deep breath. Denies any history of venous thromboembolism. Denies hemoptysis, leg swelling, recent surgery or long travel or immobilization, history of active cancer. ROS: A 10-point review of systems was negative, except as noted in the HPI (or in the ROS section of this note). Past medical history: Reviewed, no additional pertinent history. Surgical history: Reviewed in system, no additional pertinent history. Social history: Reviewed in system, no additional pertinent history. Family history: Reviewed in system, no additional pertinent history. PHYSICAL EXAM Vital signs reviewed. Nursing notes reviewed. Constitutional: Awake, alert, non-distressed. Head: Normocephalic, atraumatic. Eyes: EOMI, conjunctiva normal, no discharge, no scleral icterus. Ears, Nose, Throat: External ears and nose normal, moist oral mucosa. Hoarse voice. Cardiovascular: 2+ radial pulse, capillary refill less than 2 seconds. Pulmonary: normal work of breathing, no accessory muscle use. CTABL. Speaking in full sentences without difficulty. Abdomen/GI: Soft, nontender, nondistended, no guarding or rigidity, no masses. Musculoskeletal: No deformities. Integumentary: Appropriate color for ethnicity, warm, dry, no pallor or jaundice, no rash. Neurologic: Alert, answering questions appropriately, normal speech, no facial droop, moving all extremities well. Psychiatric: Appropriate mood and affect, normal thought process. chest, ribs Pain Score (Numeric/FACES): 7 - Related Data Allergies Allergy/AdvReac Type Severity Reaction Status Date / Time No Known Allergies Allergy Verified 01/22/20 12:08 Home Meds: Home Meds Multivitamin [Multi-Vitamin Daily] 1 each PO DAILY 02/08/19 [History] Omeprazole 20 mg PO DAILY 02/08/19 [History] Nicotine [Habitrol] 14 mg TRDERM DAILY #30 patch 06/07/19 [Rx] Albuterol [Ventolin HFA] 1 - 2 puff INH Q4H PRN 01/22/20 [History] Fluticasone/Salmeterol [Advair 250-50] 1 puff INH Q12H 01/22/20 [History] Potassium Chloride 40 meq PO DAILY 5 Days #10 packet 01/22/20 [Rx] lisinopriL [Lisinopril] 1 tab PO BID 01/22/20 [History] Past Medical History HEENT History: Reports: None Cardiovascular History: Reports: Hypertension Respiratory History: Reports: Pneumonia, Recurrent Other Respiratory History: Reports 20 yr history of smoking, current use 1/2 pack per day Gastrointestinal History: Reports: None Genitourinary History: Reports: None LEGAL ENTITY [employer]ER History: Reports: Neurological History: Reports: None Endocrine/Metabolic History: Reports: None Other Dermatologic History: "Something on top of Right foot unsure if eczema or what" - Infectious Disease History Infectious Disease History: Reports: None - Past Surgical History GI Surgical History: Reports: Cholecystectomy Other GI Surgeries/Procedures: Gastric Bypass, Lap Kathryn Female Surgical History: Reports: None Other Musculoskeletal Surgeries/Procedures:: 2 knee arthroscopies, Repair meniscus or meniscectomy Rt, Right Total Knee Replacement, REvision Right Knee Replacement 05/2014 Social & Family History - Family History Family Medical History: Noncontributory - Tobacco Use Smoking Status *Q: Current Every Day Smoker Years of Tobacco use: 25 Packs/Tins Daily: 0.2 - Caffeine Use Caffeine Use: Reports: Coffee, Tea - Recreational Drug Use Recreational Drug Use: No ED ROS GENERAL - Review of Systems Review Of Systems: See Below ED EXAM, GENERAL - Physical Exam Exam: See Below EKG INTERPRETATION EKG Interpretation Comments: 12-Lead ECG Interpretation Acquired: 12:10 PM Rhythm: Sinus rhythm Rate: 84 bpm [place]: Normal Intervals: Normal Ectopy: None RV Strain: No obvious RV strain pattern. ST Segments/T-Waves: No notable changes Acute Ischemic Changes: None apparent Interpretation: No STEMI. Poor R wave progression, QS in lead III. Course - Vital Signs Text/Narrative:: Patient hemodynamically stable, afebrile, well-appearing, looks nontoxic. Differential diagnosis includes but is not limited to: Pneumonia, COVID-19 infection, viral upper respiratory illness, laryngitis, sepsis, less likely pulmonary embolism, less likely acute coronary syndrome, pleural effusion, pleurisy, etc. SPO2 readings here 93-95%, dropped to 89-91% with ambulation Does complain of some persistent mild dyspnea. CBC shows leukocytosis. Metabolic panel shows mild hypokalemia. Normal renal function. AST, ALT, alkaline phosphatase mildly elevated. Troponin negative. COVID-19 swab is negative. Chest x-rays demonstrate interstitial thickening and mild airspace disease likely from infection or inflammatory process. Low suspicion for sepsis at this point. Twelve-lead EKG looks nonischemic. Lungs are clear to auscultation. 2:59 PM: Patient continues to complain of pleuritic chest pain so we are going to obtain a CT pulmonary angiogram. 5:14 PM: CT pulmonary angiogram demonstrates extensive bilateral groundglass opacities involving all lobes, more central distribution, possibly due to viral pneumonia. Also could possibly be pneumonitis or hypersensitivity. The patient has been monitored for several hours in the emergency department. Whenever I am in the room, her room air saturations are 93 to 95%. She had one fleeting episode of saturations dropping to 89% which just lasted for about 5 seconds at the end of ambulation. Otherwise her sats have been above 90%. On re- evaluation, she is not feeling short of breath any more. Even though her COVID testing is negative, I am suspicious that she actually has it given her radiographic findings and her symptoms. At this point she does not have resting hypoxia in the emergency department and does not need to be admitted to the hospital even if she has COVID-19. I don't think she has bacterial pneumonia and would not start antibiotics. We did give her magnesium sulfate and oral potassium. She has a pulse oximeter at home and can monitor her saturations there. She is also under the care of a county records management officer now we will have her contact his office for further guidance. I am going to prescribe a 5-day course of oral potassium and have her see her primary doctor to have it rechecked and for general reevaluation. We discussed symptomatic treatment for a viral respiratory illness and isolation instructions. We discussed ED return precautions including for persistent hypoxia with saturations below 90% at rest, chest discomfort, shortness of breath, or any other new or worsening symptoms. She voiced understanding and had no other concerns at this point. Plan: Patient is stable to discharge home with outpatient primary care clinic follow-up. Strict emergency department return precautions were provided, patient indicated understanding. All questions were answered prior to departure. Discharged in good condition. Last Recorded V/S: Last Vital Signs Temp 36.6 C 01/22/20 17:44 Pulse 85 01/22/20 17:44 Resp 20 01/22/20 17:44 BP 133/70 01/22/20 17:44 Pulse Ox 94 L 01/22/20 17:44 - Orders/Labs/Meds Orders: Active Orders 24 hr Category Date Time Status Saline Lock Insert [OM.PC] Stat Oth 01/22/20 12:35 Ordered Labs: Laboratory Tests 01/22/20 01/22/20 01/22/20 Range/Units 13:25 13:25 13:25 WBC 12.52 H (4.0-11.0) K/uL RBC 4.28 L (4.30-5.90) M/uL Hgb 13.4 (12.0-16.0) g/dL Hct 39.4 (36.0-46.0) % MCV 92.1 (80.0-98.0) fL MCH 31.3 (27.0-32.0) pg MCHC 34.0 (31.0-37.0) g/dL RDW Std Deviation 46.4 (28.0-62.0) fl RDW Coeff of [place] 14 (11.0-15.0) % Plt Count 372 (150-400) K/uL MPV 10.10 (7.40-12.00) fL Neut % (Auto) 70.0 (48.0-80.0) % Lymph % (Auto) 23.4 (16.0-40.0) % [place] % (Auto) 3.5 (0.0-15.0) % Eos % (Auto) 2.9 (0.0-7.0) % Baso % (Auto) 0.2 (0.0-1.5) % Neut # (Auto) 8.8 H (1.4-5.7) K/uL Lymph # (Auto) 2.9 H (0.6-2.4) K/uL [place] # (Auto) 0.4 (0.0-0.8) K/uL Eos # (Auto) 0.4 (0.0-0.7) K/uL Baso # (Auto) 0.0 (0.0-0.1) K/uL Nucleated RBC % 0.0 /100WBC Nucleated RBCs # 0 K/uL Sodium 135 L (136-145) mmol/L Potassium 2.9 L (3.5-5.1) mmol/L Chloride 99 (98-107) mmol/L Carbon Dioxide 24.8 (21.0-32.0) mmol/L BUN 5 L (7.0-18.0) mg/dL Creatinine 0.6 (0.6-1.0) mg/dL Est Cr Clr Drug Dosing 93.82 mL/min Estimated GFR (MDRD) > 60.0 ml/min Glucose 104 (74-106) mg/dL Calcium 9.2 (8.5-10.1) mg/dL Total Bilirubin 0.3 (0.2-1.0) mg/dL AST 52 H (15-37) IU/L ALT 87 H (14-63) IU/L Alkaline Phosphatase 213 H (46-116) U/L Troponin I < 0.050 (0.000-0.056) ng/mL Total Protein 7.8 (6.4-8.2) g/dL Albumin 3.2 L (3.4-5.0) g/dL Globulin 4.6 H (2.6-4.0) g/dL Albumin/Globulin Ratio 0.7 L (0.9-1.6) SARS-CoV-2 RNA (MANUELA) NEGATIVE (NEGATIVE) Meds: Medications Discontinued Medications Generic Name Dose Route Start Last Admin Trade Name Freq PRN Reason Stop Dose Admin Magnesium Sulfate 2 gm/ Premix 50 mls @ 50 mls/hr 01/22/20 14:18 01/22/20 15:20 IV 01/22/20 15:17 50 mls/hr ONETIME ONE Administration Iopamidol 100 ml 01/22/20 15:24 01/22/20 15:25 Isovue Multipack-370 (76%) IVPUSH 01/22/20 15:25 100 ml ONETIME ONE Administration Potassium Chloride 60 meq 01/22/20 14:18 01/22/20 15:20 Potassium Chloride PO 01/22/20 14:19 60 meq ONETIME ONE Administration Sodium Chloride 10 ml 01/22/20 12:35 01/22/20 15:20 Saline Flush FLUSH 10 ml ASDIRECTED PRN Administration Keep Vein Open Sodium Chloride 2.5 ml 01/22/20 12:35 01/22/20 15:20 Saline Flush FLUSH 2.5 ml ASDIRECTED PRN Administration Keep Vein Open Departure - Departure Time of Disposition: 17:35 Disposition: Home, Self-Care 01 Condition: Good Clinical Impression: Hypokalemia, COVID-19 virus infection - Discharge Information *PRESCRIPTION DRUG MONITORING PROGRAM REVIEWED*: Not Applicable *COPY OF PRESCRIPTION DRUG MONITORING REPORT IN PATIENT SELINA: Not Applicable Prescriptions: Potassium Chloride 40 meq PO DAILY 5 Days #10 packet Instructions: COVID-19, Hypokalemia, COVID-19: How to Protect Yourself and Others - CDC, Prevent the Spread of COVID-19 if You Are Sick - [facility] Referrals: Josef Ruggiero MD [Primary Care Provider] - Forms: ED Department Discharge Additional Instructions: You were seen in the emergency department for shortness of breath, low oxygen saturations. Even though your COVID test was negative, I believe that this is false. Your CT scan is strongly suggestive of COVID-19 infection. I am going to diagnose you with this as I believe that you have that. 3 in 20 people that have COVID-19 will have a falsely negative test. You need to monitor your oxygen saturations at home. If your oxygen saturations are less than 90% while at rest, you should come back to the emergency department for reevaluation. Your potassium level is also low and we are going to prescribe potassium for 5 days to help boost this. Warning signs to come back to the ER include persistent shortness of breath, chest discomfort, or any other new or concerning symptoms. Please return the emergency department immediately if your symptoms worsen or if you feel worse. Thank you for choosing the [facility] emergency department in [place] for your medical needs today. It was a pleasure caring for you. The following information is given to patients seen in the emergency department who are being discharged. This information is to outline your options for follow-up care. We provide all patients seen in our emergency department with a follow-up referral. The need for follow-up, as well as the timing and circumstances, are variable depending upon the specifics of your emergency department visit. If you don't have a primary care physician on staff, we will provide you with a referral. We always advise you to contact your personal physician following an emergency department visit to inform them of the circumstance of the visit and for follow-up with them and/or the need for any referrals to a consulting specialist. The emergency department will also refer you to a specialist when appropriate. This referral assures that you have the opportunity for follow-up care with a specialist. All of these measure are taken in an effort to provide you with optimal care, which includes your follow-up. Under all circumstances we always encourage you to contact your private physician who remains a resource for coordinating your care. When calling for follow-up care, please make the office aware that this follow-up is from your recent emergency room visit. If for any reason you are refused follow-up, please contact the [facility] Emergency Department at and asked to speak to the emergency department charge nurse. If you do not have a primary care physician that is caring for you, you can contact these clinics below to set up an appointment to establish care: [facility] [address] [place] [address] [facility] [address] [place] [address] Sepsis Event Note (ED) - Evaluation Sepsis Screening Result: No Definite Risk - Focused Exam Vital Signs: Vital Signs Temp Pulse Resp BP Pulse Ox 01/22/20 17:44 36.6 C 85 20 133/70 94 L 01/22/20 12:04 36.6 C 86 18 164/78 H 92 L - My Orders Last 24 Hours: My Active Orders 01/22/20 12:35 Saline Lock Insert [OM.PC] Stat - Assessment/Plan Last 24 Hours: My Active Orders 01/22/20 12:35 Saline Lock Insert [OM.PC] Stat
[2020-01-22] MEDS ORDERED: Sodium Chloride 0.9% 2.5 ML Syringe FLUSH PRN (12:35)
[2020-01-22] MEDS ORDERED: Sodium Chloride 0.9% 10 ML Syringe FLUSH PRN (12:35)
--- NOTE | 2020-01-22 13:33 | CR ---
HISTORY: Dyspnea. TECHNIQUE: Two-view chest. COMPARISON: Chest x-ray 06/04/2019. FINDINGS: Interstitial thickening bilaterally. Mild hazy airspace opacification in both lung bases. No pleural effusion or pneumothorax. Cardiomediastinal silhouette is within normal limits. IMPRESSION: Interstitial thickening and mild airspace disease likely from infection or inflammatory process. Dictated by Alexandr Brady MD @ Jan 22 2020 1:27PM Signed by Dr. Alexandr Brady @ Jan 22 2020 1:33PM
[2020-01-22 14:01] LABS: BLOOD UREA NITROGEN,BUN 5 mg/dL (7.0-18.0); CARBON DIOXIDE,CO2 24.8 mmol/L (21.0-32.0); CHLORIDE,CL 99 mmol/L (98-107); GLUCOSE RANDOM 104 mg/dL (74-106); POTASSIUM,K 2.9 mmol/L (3.5-5.1); SODIUM,NA 135 mmol/L (136-145)
[2020-01-22] MEDS ORDERED: Potassium Chloride 10% 20 MEQ/15 ML Soln 30 ML UD Cup PO ONE (14:18)
[2020-01-22] MEDS ORDERED: Magnesium Sulfate/Water 2 GM in Premix Bag 1 BAG IV ONE (14:18)
[2020-01-22] MEDS ORDERED: Iopamidol 755 MG/ML 500 ML Multipack Bottle IVPUSH ONE (15:24)
--- NOTE | 2020-01-22 16:23 | CT ---
INDICATION: Pleuritic chest pain TECHNIQUE: CT chest PE was acquired with 100 cc Isovue 370 intravenous contrast. COMPARISON: Chest CT 08/24/2019 FINDINGS: Heart and vasculature: Contrast opacification of the pulmonary arterial tree is adequate. No sign of pulmonary embolism. Heart size is normal. Thoracic aorta and pulmonary artery are normal in caliber. Lungs and pleural: No pleural effusion or pneumothorax. Bilateral diffuse ground-glass opacities, oriented more central, sparing the periphery. Lymph nodes/mediastinum: Sub centimeter mediastinal lymph nodes. Chest wall: No masses. Upper abdomen: Fatty infiltration of the liver. Status post gastric bypass. Bones: Old fractures of the left 6th through 11th ribs. IMPRESSION: 1. No evidence of pulmonary embolus. 2. Extensive bilateral ground-glass opacities involving all lobes, more central in distribution. A viral pneumonia is certainly possible, however its more central distribution would favor a differential of a pneumonitis, hypersensitivity or somewhat less likely pulmonary edema. 3. Fatty infiltration of the liver. Please note that all CT scans at this facility use dose modulation, iterative reconstruction, and/or weight-based dosing when appropriate to reduce radiation dose to as low as reasonably achievable. Dictated by Stan Ashford MD @ Jan 22 2020 4:06PM Signed by Dr. Stan Ashford @ Jan 22 2020 4:22PM
[2020-01-22 17:45] VITALS: BP 133/70; PULSE 85
== END 2020-01-22 17:49 | disposition home or self-care (01) ==
LOC: MW.ED 11:58
DX: U07.1 COVID-19 (principal); E87.6 Hypokalemia; D72.829 Elevated white blood cell count, unspecified; I10 Essential (primary) hypertension; J44.9 Chronic obstructive pulmonary disease, unspecified; F17.210 Nicotine dependence, cigarettes, uncomplicated; Z79.899 Other long term (current) drug therapy
CPT/HCPCS: 71046; 71275; 80053; 84484; 85025; 87635; 93005; 96365; 99285; A9270; J3475; Q9967; 99283; U0002

== ENCOUNTER 2020-03-04 00:44 | Emergency (ER) | payer BC ==
--- NOTE | 2020-03-04 00:58 | EDM.PDOCBH ---
ED HPI GENERAL MEDICAL PROBLEM - General Chief Complaint: Behavioral/Psych Stated Complaint: SUICIDAL Time Seen by Provider: 03/04/20 00:49 Source of Information: Reports: Patient, EMS History Limitations: Reports: No Limitations - History of Present Illness INITIAL COMMENTS - FREE TEXT/NARRATIVE: 49-year-old female with history of COPD, MDD was brought in by EMS for suicidal ideation. She has been feeling more depressed over the last 4 days and tonight she had 2 whiskey Cokes and 2 beers. She states that her is threatening to leave her. She does not have a particular plan and blames her daughter taking away her gone. I asked her what she would do if the gun was at home, she states she might consider using it. Patient denies fever, chills, headache, chest pain, shortness of breath, abdominal pain, focal numbness or weakness. ROS: A 10-point review of systems, other than pertinent positives and negatives as stated per HPI, is otherwise negative Past medical history: No additional pertinent history Past Surgical history: No additional pertinent history Social history: No additional pertinent history Family history: No additional pertinent history PHYSICAL EXAM General: AOx4, GCS = 15, No distress, tearful HEENT: dry mucous membrane Neck: supple, no meningismus, no Kernig or Brudzinski Cardiac: S1S2 RRR Respiratory: CTAB, no crackles or rales, no wheezing Abdomen: Soft, nontender, no rebound or guarding, nondistended, no pulsatile mass. Back: nontender Musculoskeletal: NVI distally, no deformity Neuro: No focal deficits Psych: SI, no HI or hallucinations. - Related Data Allergies Allergy/AdvReac Type Severity Reaction Status Date / Time No Known Allergies Allergy Verified 03/04/20 01:08 Home Meds: Home Meds Multivitamin [Multi-Vitamin Daily] 1 each PO DAILY 02/08/19 [History] Omeprazole 20 mg PO DAILY 02/08/19 [History] Nicotine [Habitrol] 14 mg TRDERM DAILY #30 patch 02/26/20 [Rx] Albuterol [Ventolin HFA] 1 - 2 puff INH Q4H PRN 01/22/20 [History] Fluticasone/Salmeterol [Advair 250-50] 1 puff INH Q12H 01/22/20 [History] Potassium Chloride 40 meq PO DAILY 5 Days #10 packet 01/22/20 [Rx] lisinopriL [Lisinopril] 1 tab PO BID 01/22/20 [History] Past Medical History HEENT History: Reports: None Cardiovascular History: Reports: Hypertension Respiratory History: Reports: Pneumonia, Recurrent Other Respiratory History: Reports 20 yr history of smoking, current use 1/2 pack per day Gastrointestinal History: Reports: None Genitourinary History: Reports: None 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: Neurological History: Reports: None Endocrine/Metabolic History: Reports: None Other Dermatologic History: "Something on top of Right foot unsure if eczema or what" - Infectious Disease History Infectious Disease History: Reports: None - Past Surgical History GI Surgical History: Reports: Cholecystectomy Other GI Surgeries/Procedures: Gastric Bypass, Lap Kathryn Female Surgical History: Reports: None Other Musculoskeletal Surgeries/Procedures:: 2 knee arthroscopies, Repair meniscus or meniscectomy Rt, Right Total Knee Replacement, REvision Right Knee Replacement 05/2014 Social & Family History - Family History Family Medical History: No Pertinent Family History - Caffeine Use Caffeine Use: Reports: Coffee, Tea ED ROS GENERAL - Review of Systems Review Of Systems: See Below (see dictation) ED EXAM, BEHAVIORAL HEALTH - Physical Exam Exam: See Below (see dictation) #1 Interpretation EKG Interpretation Comments: Heart rate = 74 bpm, normal sinus rhythm, normal QRS interval, no STEMI. EKG and rhythm strip interpreted by me at [facility] COURSE, BEHAVIORAL HEALTH COMP - Course Vital Signs: Last Vital Signs Temp 96.8 F L 03/04/20 00:50 Pulse 88 03/04/20 00:50 Resp 14 03/04/20 02:18 BP 170/82 H 03/04/20 02:18 Pulse Ox 96 03/04/20 02:18 Orders, Labs, Meds: Active Orders 24 hr Category Date Time Status EKG Documentation Completion [RC] STAT Care 03/04/20 00:53 Active Laboratory Tests 03/04/20 03/04/2003/04/20 Range/Units 00:57 01:05 01:05 WBC 9.21 (4.0-11.0) K/uL RBC 4.58 (4.30-5.90) M/uL Hgb 14.4 (12.0-16.0) g/dL Hct 42.3 (36.0-46.0) % MCV 92.4 (80.0-98.0) fL MCH 31.4 (27.0-32.0) pg MCHC 34.0 (31.0-37.0) g/dL RDW Std Deviation 44.5 (28.0-62.0) fl RDW Coeff of [place] 14 (11.0-15.0) % Plt Count 379 (150-400) K/uL MPV 9.30 (7.40-12.00) fL Neut % (Auto) 47.2 L (48.0-80.0) % Lymph % (Auto) 44.6 H (16.0-40.0) % Whiteside % (Auto) 3.6 (0.0-15.0) % Eos % (Auto) 3.8 (0.0-7.0) % Baso % (Auto) 0.8 (0.0-1.5) % Neut # (Auto) 4.4 (1.4-5.7) K/uL Lymph # (Auto) 4.1 H (0.6-2.4) K/uL [place] # (Auto) 0.3 (0.0-0.8) K/uL Eos # (Auto) 0.4 (0.0-0.7) K/uL Baso # (Auto) 0.1 (0.0-0.1) K/uL Sodium 141 (136-145) mmol/L Potassium 3.3 L (3.5-5.1) mmol/L Chloride 103 (98-107) mmol/L Carbon Dioxide 28.1 (21.0-32.0) mmol/L BUN 6 L (7.0-18.0) mg/dL Creatinine 0.9 (0.6-1.0) mg/dL Est Cr Clr Drug Dosing TNP Estimated GFR (MDRD) > 60.0 ml/min Glucose 116 H (74-106) mg/dL Calcium 8.8 (8.5-10.1) mg/dL Magnesium 2.2 (1.8-2.4) mg/dL Total Bilirubin 0.2 (0.2-1.0) mg/dL AST 48 H (15-37) IU/L ALT 66 H (14-63) IU/L Alkaline Phosphatase 151 H (46-116) U/L Total Protein 7.8 (6.4-8.2) g/dL Albumin 3.7 (3.4-5.0) g/dL Globulin 4.1 H (2.6-4.0) g/dL Albumin/Globulin Ratio 0.9 (0.9-1.6) TSH 3rd Generation 2.39 (0.36-3.74) uIU/mL Urine Color YELLOW Urine Appearance SLT CLOUDY Urine pH 6.0 (5.0-8.0) Ur Specific [place] 1.010 (1.001-1.035) Urine Protein NEGATIVE (NEGATIVE) mg/dL Urine Glucose (UA) NEGATIVE (NEGATIVE) mg/dL Urine Ketones NEGATIVE (NEGATIVE) mg/dL Urine Occult Blood NEGATIVE (NEGATIVE) Urine Nitrite NEGATIVE (NEGATIVE) Urine Bilirubin NEGATIVE (NEGATIVE) Urine Urobilinogen 0.2 (<2.0) EU/dL Ur Leukocyte Esterase TRACE H (NEGATIVE) Urine RBC 0-1 (0-2/HPF) Urine WBC 6-8 (0-5/HPF) Ur Epithelial Cells FEW (NONE-FEW) Urine Bacteria RARE (NEGATIVE) Urine HCG, Qual (NEGATIVE) Salicylates 6.9 (0-20) mg/dL Urine Opiates Screen (NEGATIVE) Ur Oxycodone Screen (NEGATIVE) Urine Methadone Screen (NEGATIVE) Acetaminophen <2.0 ug/mL Ur Barbiturates Screen (NEGATIVE) Ur Phencyclidine Scrn (NEGATIVE) Ur Amphetamine Screen (NEGATIVE) U Methamphetamines Scrn (NEGATIVE) U Benzodiazepines Scrn (NEGATIVE) U Cocaine Metab Screen (NEGATIVE) U Marijuana (THC) Screen (NEGATIVE) Ethyl Alcohol 201 mg/dL SARS-CoV-2 RNA (MANUELA) (NEGATIVE) 03/04/20 03/04/20 03/04/20 Range/Units 01:09 01:09 01:45 WBC (4.0-11.0) K/uL RBC (4.30-5.90) M/uL Hgb (12.0-16.0) g/dL Hct (36.0-46.0) % MCV (80.0-98.0) fL MCH (27.0-32.0) pg MCHC (31.0-37.0) g/dL RDW Std Deviation (28.0-62.0) fl RDW Coeff of [place] (11.0-15.0) % Plt Count (150-400) K/uL MPV (7.40-12.00) fL Neut % (Auto) (48.0-80.0) % Lymph % (Auto) (16.0-40.0) % Whiteside % (Auto) (0.0-15.0) % Eos % (Auto) (0.0-7.0) % Baso % (Auto) (0.0-1.5) % Neut # (Auto) (1.4-5.7) K/uL Lymph # (Auto) (0.6-2.4) K/uL [place] # (Auto) (0.0-0.8) K/uL Eos # (Auto) (0.0-0.7) K/uL Baso # (Auto) (0.0-0.1) K/uL Sodium (136-145) mmol/L Potassium (3.5-5.1) mmol/L Chloride (98-107) mmol/L Carbon Dioxide (21.0-32.0) mmol/L BUN (7.0-18.0) mg/dL Creatinine (0.6-1.0) mg/dL Est Cr Clr Drug Dosing Estimated GFR (MDRD) ml/min Glucose (74-106) mg/dL Calcium (8.5-10.1) mg/dL Magnesium (1.8-2.4) mg/dL Total Bilirubin (0.2-1.0) mg/dL AST (15-37) IU/L ALT (14-63) IU/L Alkaline Phosphatase (46-116) U/L Total Protein (6.4-8.2) g/dL Albumin (3.4-5.0) g/dL Globulin (2.6-4.0) g/dL Albumin/Globulin Ratio (0.9-1.6) TSH 3rd Generation (0.36-3.74) uIU/mL Urine Color Urine Appearance Urine pH (5.0-8.0) Ur Specific [place] (1.001-1.035) Urine Protein (NEGATIVE) mg/dL Urine Glucose (UA) (NEGATIVE) mg/dL Urine Ketones (NEGATIVE) mg/dL Urine Occult Blood (NEGATIVE) Urine Nitrite (NEGATIVE) Urine Bilirubin (NEGATIVE) Urine Urobilinogen (<2.0) EU/dL Ur Leukocyte Esterase (NEGATIVE) Urine RBC (0-2/HPF) Urine WBC (0-5/HPF) Ur Epithelial Cells (NONE-FEW) Urine Bacteria (NEGATIVE) Urine HCG, Qual NEGATIVE (NEGATIVE) Salicylates (0-20) mg/dL Urine Opiates Screen NEGATIVE (NEGATIVE) Ur Oxycodone Screen NEGATIVE (NEGATIVE) Urine Methadone Screen NEGATIVE (NEGATIVE) Acetaminophen ug/mL Ur Barbiturates Screen NEGATIVE (NEGATIVE) Ur Phencyclidine Scrn NEGATIVE (NEGATIVE) Ur Amphetamine Screen NEGATIVE (NEGATIVE) U Methamphetamines Scrn NEGATIVE (NEGATIVE) U Benzodiazepines Scrn NEGATIVE (NEGATIVE) U Cocaine Metab Screen NEGATIVE (NEGATIVE) U Marijuana (THC) Screen NEGATIVE (NEGATIVE) Ethyl Alcohol mg/dL SARS-CoV-2 RNA (MANUELA) NEGATIVE (NEGATIVE) Medical Clearance: 03/04/20 03:08 Patient is now clinically sober, she agrees to be transferred for psychiatric as sessment for her thoughts of suicide. Psychiatric hold was placed by me. case discussed with Bird Low (psych). Departure - Departure Time of Disposition: 03:08 Disposition: DC/Tfer to Psych Hosp/Unit 65 Condition: Good Clinical Impression: Depressive disorder, Suicidal ideation - Discharge Information *PRESCRIPTION DRUG MONITORING PROGRAM REVIEWED*: Not Applicable *COPY OF PRESCRIPTION DRUG MONITORING REPORT IN PATIENT SELINA: Not Applicable Instructions: Suicidal Feelings: How to Help Yourself, Major Depressive Disorder, Adult Referrals: PCP,None [Primary Care Provider] - Forms: ED Department Discharge Sepsis Event Note (ED) - Focused Exam Vital Signs: Vital Signs Temp Pulse Resp BP Pulse Ox 03/04/20 02:18 14 170/82 H 96 03/04/20 00:50 96.8 F L 88 16 172/105 H 96 - My Orders Last 24 Hours: My Active Orders 03/04/20 00:53 EKG Documentation Completion [RC] STAT - Assessment/Plan Last 24 Hours: My Active Orders 11/23/20 00:53 EKG Documentation Completion [RC] STAT
[2020-03-04 01:40] LABS: ACETAMINOPHEN <2.0 ug/mL
[2020-03-04 01:43] LABS: BLOOD UREA NITROGEN,BUN 6 mg/dL (7.0-18.0); CARBON DIOXIDE,CO2 28.1 mmol/L (21.0-32.0); CHLORIDE,CL 103 mmol/L (98-107); GLUCOSE RANDOM 116 mg/dL (74-106); POTASSIUM,K 3.3 mmol/L (3.5-5.1); SODIUM,NA 141 mmol/L (136-145)
[2020-03-04] MEDS ORDERED: Nicotine 21 MG/24 Hr Patch TRDERM ONE (05:15)
[2020-03-04 06:06] VITALS: BP 117/70; PULSE 74
== END 2020-03-04 08:13 ==
LOC: MW.ED 00:44
DX: F32.9 Major depressive disorder, single episode, unspecified (principal); J44.9 Chronic obstructive pulmonary disease, unspecified; I10 Essential (primary) hypertension; Z79.899 Other long term (current) drug therapy; Z20.828 Contact with and (suspected) exposure to other viral communicable diseases
CPT/HCPCS: 36415; 80053; 80305; 80307; 81001; 81025; 83735; 84443; 85025; 87635; 93005; 99285; A9270; 93010; 99284; U0002

== ENCOUNTER 2020-04-01 07:37 | Emergency (ER) | payer BC ==
--- NOTE | 2020-04-01 07:58 | EDM.PDOC ---
ED HPI GENERAL MEDICAL PROBLEM - General Chief Complaint: Lower Extremity Injury/Pain Stated Complaint: LT LEG IS SWOLLEN Time Seen by Provider: 04/01/20 07:38 - History of Present Illness INITIAL COMMENTS - FREE TEXT/NARRATIVE: 49-year-old female with history of COPD not on home O2 who is presenting with few days of initially left knee pain and now left calf and leg pain and swelling. Patient reports that it started with atraumatic posterior medial knee discomfort that worsens with ambulation she has been taking 1 tablet a day of [id number] pain reliever. She states this is not helping. Today and yesterday she noticed an uncomfortable swelling of the left lower extremity from the knee down to the toes as well. This is associated with a tingling paresthesia. No focal weakness no skin erythema. No other exacerbating or alleviating factors radiation or other associated symptoms. Left Leg Pain Score (Numeric/FACES): 8 - Related Data Allergies Allergy/AdvReac Type Severity Reaction Status Date / Time No Known Allergies Allergy Verified 04/01/20 07:47 Home Meds: Home Meds Multivitamin [Multi-Vitamin Daily] 1 each PO DAILY 02/08/19 [History] Omeprazole 20 mg PO DAILY 02/08/19 [History] Nicotine [Habitrol] 14 mg TRDERM DAILY #30 patch 06/07/19 [Rx] Albuterol [Ventolin HFA] 1 - 2 puff INH Q4H PRN 01/22/20 [History] Fluticasone/Salmeterol [Advair 250-50] 1 puff INH Q12H 01/22/20 [History] Potassium Chloride 40 meq PO DAILY 5 Days #10 packet 01/22/20 [Rx] lisinopriL [Lisinopril] 20 mg PO BID 01/22/20 [History] Ibuprofen 400 mg PO TID 5 Days #15 tablet 04/01/20 [Rx] Past Medical History HEENT History: Reports: None Cardiovascular History: Reports: Hypertension Respiratory History: Reports: Asthma, Pneumonia, Recurrent Other Respiratory History: Reports 20 yr history of smoking, current use 1/2 pack per day Gastrointestinal History: Reports: None Genitourinary History: Reports: 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 History: Reports: None Psychiatric History: Reports: Depression Endocrine/Metabolic History: Reports: Obesity/BMI 30+ Other Dermatologic History: "Something on top of Right foot unsure if eczema or what" - Infectious Disease History Infectious Disease History: Reports: None - Past Surgical History GI Surgical History: Reports: Cholecystectomy Other GI Surgeries/Procedures: Gastric Bypass, Lap Kathryn Female Surgical History: Reports: None Other Musculoskeletal Surgeries/Procedures:: 2 knee arthroscopies, Repair meniscus or meniscectomy Rt, Right Total Knee Replacement, REvision Right Knee Replacement 05/2014 Social & Family History - Family History Family Medical History: No Pertinent Family History - Caffeine Use Caffeine Use: Reports: Coffee, Tea Review of Systems - Review of Systems Review Of Systems: Comprehensive ROS is negative, except as noted in HPI. ED EXAM, GENERAL - Physical Exam Exam: See Below Free Text/Narrative:: General Appearance: No acute distress, appears comfortable Skin: No rash HEENT: Normocephalic/atraumatic, sclera anicteric, mucous membranes moist Neck: Normal range of motion Back: Normal Musculoskeletal: 2+ left DP pulse, no focal tenderness over the base of the fifth metatarsal or either malleoli. There is some collateral vein formation and some tenderness in pitting edema from the knee down to the midfoot there is no significant erythema there is tenderness over the left medial joint line there is also a tender palpable swelling in the popliteal fossa the leg is warm and well-perfused and there is no clinical joint effusion. Neurologic: Awake, alert, no obvious deficits, moving all extremities Psychiatric: Appropriate, cooperative Course - Vital Signs Last Recorded V/S: Last Vital Signs Temp 97 F 04/01/20 07:43 Pulse 69 04/01/20 08:58 Resp 18 04/01/20 08:58 BP 117/50 L 04/01/20 08:58 Pulse Ox 95 04/01/20 08:58 - Orders/Labs/Meds Labs: Laboratory Tests 04/01/20 Range/Units 08:06 D-Dimer, Quantitative 0.65 H (0.0-0.50) mg/L FEU Departure - Departure Time of Disposition: 09:22 Disposition: Home, Self-Care 01 Condition: Good Clinical Impression: Knee pain, acute - Discharge Information *PRESCRIPTION DRUG MONITORING PROGRAM REVIEWED*: Not Applicable *COPY OF PRESCRIPTION DRUG MONITORING REPORT IN PATIENT SELINA: Not Applicable Prescriptions: Ibuprofen 400 mg PO TID 5 Days #15 tablet Instructions: Acute Knee Pain, Adult, How to Use Cold Therapy, [id number] Referrals: Josef Ruggiero MD [Primary Care Provider] - 2 Weeks Forms: ED Department Discharge Additional Instructions: Your ultrasound today did not show any signs of a blood clot. However, your blood test was mildly abnormal which means that you could have a small blood clot that was simply not detected by the ultrasound. For this reason it is important you follow-up with your primary care doctor's office for another ultrasound in approximately 2 weeks. The following information is given to patients seen in the emergency department who are being discharged to home. This information is to outline your options for follow-up care. We provide all patients seen in our emergency department with a follow-up referral. The need for follow-up, as well as the timing and circumstances, are variable depending upon the specifics of your emergency department visit. If you don't have a primary care physician on staff, we will provide you with a referral. We always advise you to contact your personal physician following an emergency department visit to inform them of the circumstance of the visit and for follow-up with them and/or the need for any referrals to a consulting specialist. The emergency department will also refer you to a specialist when appropriate. This referral assures that you have the opportunity for follow-up care with a specialist. All of these measure are taken in an effort to provide you with optimal care, which includes your follow-up. Under all circumstances we always encourage you to contact your private physician who remains a resource for coordinating your care. When calling for follow-up care, please make the office aware that this follow-up is from your recent emergency room visit. If for any reason you are refused follow-up, please contact the [facility] Emergency Department at and asked to speak to the emergency department charge nurse. Sepsis Event Note (ED) - Evaluation Sepsis Screening Result: No Definite Risk - Focused Exam Vital Signs: Vital Signs Temp Pulse Resp BP Pulse Ox 04/01/20 08:58 69 18 117/50 L 95 04/01/20 07:43 97 F 77 16 151/76 H 94 L - Assessment/Plan Assessment:: 49-year-old female presenting with atraumatic left knee pain. Certainly DVT needs to be excluded regarding the knee pain Stallworth's cyst is a consideration no mechanism to suggest ligament rupture or meniscus injury no findings that would suggest septic arthritis. X-ray of the knee left lower extremity ultrasound to rule out DVT as well as D-dimer. 0322: Patient's ultrasound is negative for DVT, x-ray negative for acute fracture, D-dimer mildly positive. I discussed these results with the patient we discussed avoiding the compressive knee brace using rest ice elevation and ibuprofen prescription for 400 mg (lower dose due to use of lisinopril) of ibuprofen 3 times daily for 5 days sent to the pharmacy. Patient understands the importance of following up with her primary care doctor in 2 weeks for repeat ultrasound.
--- NOTE | 2020-04-01 08:47 | US ---
INDICATION: Leg pain and swelling TECHNIQUE: Ultrasound venous duplex lower left extremity. Compression venous exam was performed using betts-scale, color Doppler, and spectral Doppler analysis. COMPARISON: None. FINDINGS: Sonographic imaging demonstrates the left common femoral, deep femoral, superficial femoral, popliteal, posterior tibial and greater saphenous and the contralateral right common femoral veins to be fully compressible with normal color Doppler blood flow. IMPRESSION: Normal left lower extremity venous ultrasound, no sign of deep venous thrombosis. Dictated by Marshall Ballard MD @ Apr 01 2020 8:46AM Signed by Dr. Marshall Ballard @ Apr 01 2020 8:47AM
--- NOTE | 2020-04-01 08:56 | CR ---
Indication: Knee pain Technique: Left knee 3 views Comparison: None Findings: Bones: Alignment is normal. No fractures or bone lesions. Joint spaces: Joint spaces are well maintained. No degenerative changes. No sign of joint effusion. Soft tissues: Unremarkable. Impression: No findings to explain pain. Dictated by Marshall Ballard MD @ Apr 01 2020 8:54AM Signed by Dr. Marshall Ballard @ Apr 01 2020 8:55AM
[2020-04-01 09:47] VITALS: BP 138/71; PULSE 75
== END 2020-04-01 09:44 | disposition home or self-care (01) ==
LOC: MW.ED 07:37
DX: M25.562 Pain in left knee (principal); I10 Essential (primary) hypertension; E66.9 Obesity, unspecified; J44.9 Chronic obstructive pulmonary disease, unspecified; Z90.49 Acquired absence of other specified parts of digestive tract; Z68.39 Body mass index [BMI] 39.0-39.9, adult; Z79.899 Other long term (current) drug therapy
CPT/HCPCS: 36415; 73562-26-LT; 73562-LT; 85379; 93971-26-LT; 93971-LT; 99282; 99284-25

== ENCOUNTER 2020-07-06 20:50 | Emergency (ER) | payer BC ==
[2020-07-06] MEDS ORDERED: Ibuprofen 600 MG Tab PO ONE (21:28)
[2020-07-06] MEDS ORDERED: traMADol 50 MG Tab PO ONE (21:28)
--- NOTE | 2020-07-06 23:01 | US ---
INDICATION: Right calf pain and swelling. COMPARISON: None available. FINDINGS: Ultrasound of the venous drainage of the right lower extremity shows no evidence of deep venous thrombosis. There is normal antegrade flow from the posterior tibial and popliteal veins superiorly through the common femoral vein. There is normal augmentation and compressibility of these veins. The area of pain in the left calf corresponds to a rounded heterogeneously hypoechoic region in the muscle belly measuring 2.8 x 1.7 x 3.5 centimeters, associated with edema below this region. This could represent a hematoma in the muscle belly. It is possible that this is the results of rupture of the muscle, but the patient does not give a history of injury. IMPRESSION: No evidence of deep venous thrombosis on ultrasound examination of the right lower extremity. The area of pain and swelling in the right calf corresponds to an enlarged, heterogeneous appearance of the muscle belly. This could be a hematoma of the muscle belly or rupture of the muscle belly. Dictated by Seth Boss MD @ Jul 06 2020 10:56PM Signed by Dr. Seth Boss @ Jul 06 2020 11:00PM
--- NOTE | 2020-07-06 23:10 | EDM.PDOC ---
ED HPI GENERAL MEDICAL PROBLEM - General Chief Complaint: Lower Extremity Injury/Pain Stated Complaint: RT CALF PAIN GOING INTO HIP AREA Time Seen by Provider: 07/06/20 21:18 - History of Present Illness INITIAL COMMENTS - FREE TEXT/NARRATIVE: HISTORY AND PHYSICAL: History of present illness: This is a 49-year-old female who presents ER today complaining of pain to her right calf x2 to 3 days. Patient reports has been swollen and warm to touch. Patient present the pain is greatest in the posterior aspect. Patient denies any recent fevers, shakes, chills, nausea, vomiting, diarrhea, dysuria, frequency, urgency, chest pain, shortness of breath. Patient denies any history of PE or DVT in the past. Patient reports she did she smoke cigarettes but is not on any hormonal supplementation. Patient denies any family history of DVT or PE. Patient denies any recent trauma or sensation of the snap to the back of her calf. 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 Patient denies any injuries to her toes or legs. Review of systems: As per history of present illness and below otherwise all systems reviewed and negative. Past medical history: As per history of present illness and as reviewed below otherwise noncontributory. Surgical history: As per history of present illness and as reviewed below otherwise noncontributory. Social history: No reported history of drug or alcohol abuse. Family history: As per history of present illness and as reviewed below otherwise noncontributory. Physical exam: This patient was seen and evaluated during the 2019 SARS-CoV-2 novel coronavirus pandemic period. Community viral transmission is ongoing at time of this encounter and the emergency department is operating under pandemic response procedures. Constitutional: Patient is oriented to person, place, and time. Appears well- developed and well-nourished. No distress. HEENT: Moist mucous membranes Head: Normocephalic and atraumatic Eyes: Right eye exhibits no discharge. Left eye exhibits no discharge. No scleral icterus Neck: Normal range of motion. No tracheal deviation present. Cardiovascular: Normal rate and regular rhythm. Pulmonary: Effort normal, no respiratory distress. Abdominal: No distention Musculoskeletal: Normal range of motion Neurologic: Alert and oriented to person, place and time. Skin: [place], warm and dry. Psychiatric: Normal mood and affect. Behavior is normal. Judgment and thought content normal. Nursing note and vital signs have been reviewed Patient's ER physical exam is significant for a swollen erythematous warm right calf with a small area of excoriation to the posterior aspect. No fluctuance or evidence of abscess. Patient is neurovascularly intact. Diagnostics: Ultrasound right lower extremity: No evidence of deep vein thrombosis on ultrasound examination of the right lower extremity. The area of pain and swelling in the right calf corresponds to an enlarged heterogeneous appearance of the muscle belly. This could be a hematoma of the muscle belly or rupture of the muscle belly. Therapeutics: Ultram and ibuprofen for pain Keflex 500 mg initiated for possible cellulitis as cause of swelling Assessment and plan: This is a 49-year-old female who presents ER today complaining of pain swelling redness to her right calf. Patient's ultrasound is consistent with a possible hematoma the muscle belly rupture of the muscle belly. Given the redness and warmth I will also initiate the patient on Keflex in case this is a cellulitis as well. Patient is clinically hemodynamically stable and does not have any fever. Patient can be treated as an outpatient this is a cellulitis. Patient will be given Ultram and ibuprofen to assist with pain it is to the point muscle appear to have discussed with the patient elevation rest and ice for the next several days and to follow-up with her doctor in the next 2 to 3 days for reevaluation. Reassessment at the time of disposition demonstrates that the patient is in no acute distress. The patient has remained stable throughout the entire ED visit and is without objective evidence for acute process requiring urgent intervention or hospitalization. The patient is stable for discharge, counseling is provided as documented above, discussed symptomatic treatment and specific conditions for return. I have spoken with the patient/caregiver and discussed todays findings, in addition to providing specific details for the plan of care. Questions are answered and there is agreement with the plan. Definitive disposition and diagnosis as appropriate pending reevaluation and review of above. Right Leg Pain Score (Numeric/FACES): 8 - Related Data Allergies Allergy/AdvReac Type Severity Reaction Status Date / Time No Known Allergies Allergy Verified 07/06/20 21:09 Home Meds: Home Meds Omeprazole 20 mg PO DAILY 02/08/19 [History] lisinopriL [Lisinopril] 20 mg PO BID 01/22/20 [History] Ibuprofen 600 mg PO Q6HR PRN #30 tablet 07/06/20 [Rx] Naltrexone 50 mg PO DAILY 07/06/20 [History] Sertraline [Zoloft] 25 mg PO DAILY 07/06/20 [History] cephALEXin [Keflex] 500 mg PO Q8H #30 cap 07/06/20 [Rx] traMADol [Ultram] 50 mg PO Q6H PRN #12 tab 07/06/20 [Rx] Past Medical History HEENT History: Reports: None Cardiovascular History: Reports: Hypertension Respiratory History: Reports: Asthma, Pneumonia, Recurrent Other Respiratory History: reports approx 30 year hx of smoking Gastrointestinal History: Reports: None Genitourinary History: Reports: None [employer]INTE[employer] History: Reports: Neurological History: Reports: None Psychiatric History: Reports: Depression Endocrine/Metabolic History: Reports: Obesity/BMI 30+ Other Dermatologic History: "Something on top of Right foot unsure if eczema or what" - Infectious Disease History Infectious Disease History: Reports: None - Past Surgical History GI Surgical History: Reports: Cholecystectomy Other GI Surgeries/Procedures: Gastric Bypass, Lap Kathryn, jasmin bypass revision Female Surgical History: Reports: None Musculoskeletal Surgical History: Reports: Knee Replacement Other Musculoskeletal Surgeries/Procedures:: 2 knee arthroscopies, Repair meniscus or meniscectomy Rt, Right Total Knee Replacement, REvision Right Knee Replacement 05/2014 Social & Family History - Family History Family Medical History: No Pertinent Family History - Tobacco Use Tobacco Use Status *Q: Current Every Day Tobacco User Years of Tobacco use: 30 Packs/Tins Daily: 1 - Caffeine Use Caffeine Use: Reports: Coffee, Tea Review of Systems - Review of Systems Review Of Systems: See Below ED EXAM, GENERAL - Physical Exam Exam: See Below Course - Vital Signs Last Recorded V/S: Last Vital Signs Temp 97.8 F 07/06/20 21:06 Pulse 90 07/06/20 23:24 Resp 18 07/06/20 23:24 BP 136/67 07/06/20 23:24 Pulse Ox 94 L 07/06/20 23:24 - Orders/Labs/Meds Meds: Medications Discontinued Medications Generic Name Dose Route Start Last Admin Trade Name Freq PRN Reason Stop Dose Admin Cephalexin 500 mg 07/06/20 23:18 07/06/20 23:22 Cephalexin 500 Mg Cap PO 07/06/20 23:19 500 mg ONETIME ONE Administration Cephalexin 500 mg 07/06/20 23:25 07/06/20 23:27 Cephalexin 500 Mg Cap PO 07/06/20 23:26 Not Given ONETIME ONE Ibuprofen 600 mg 07/06/20 21:28 07/06/20 22:06 Ibuprofen 600 Mg Tab PO 07/06/20 21:29 600 mg ONETIME ONE Administration Tramadol HCl 50 mg 07/06/20 21:28 07/06/20 22:06 Tramadol 50 Mg Tab PO 07/06/20 21:29 50 mg ONETIME ONE Administration Departure - Departure Time of Disposition: 23:19 Disposition: Home, Self-Care 01 Condition: Good Clinical Impression: Other rupture of muscle (nontraumatic), right lower leg, Hematoma of muscle, Cellulitis of leg without foot, left - Discharge Information Prescriptions: Ibuprofen 600 mg PO Q6HR PRN #30 tablet PRN Reason: Pain cephALEXin [Keflex] 500 mg PO Q8H #30 cap traMADol [Ultram] 50 mg PO Q6H PRN #12 tab PRN Reason: Pain Instructions: Cellulitis, Adult, Musculoskeletal Pain Referrals: PCP,None [Primary Care Provider] - Forms: ED Department Discharge Additional Instructions: You were seen and evaluated in ER today secondary to pain swelling and redness to your right calf. The ultrasound not reveal any blood clots in any of your deep veins however there did appear to be evidence that there was a likely tear of one of the muscle bellies in your calf with a likely hematoma there. Given the redness and warmth of your leg I will also initiate you on antibiotics in case this is a cellulitis. Keflex 500 mg 3 times a day for 10 days. Ultram 50 mg every 6 hours as needed for pain Ibuprofen 600 mg every 6 hours as needed for pain. Please make an appointment to see your family doctor in the next 2 to 3 days for reevaluation. The following information is given to patients seen in the emergency department who are being discharged to home. This information is to outline your options for follow-up care. We provide all patients seen in our emergency department with a follow-up referral. The need for follow-up, as well as the timing and circumstances, are variable depending upon the specifics of your emergency department visit. If you don't have a primary care physician on staff, we will provide you with a referral. We always advise you to contact your personal physician following an emergency department visit to inform them of the circumstance of the visit and for follow-up with them and/or the need for any referrals to a consulting specialist. The emergency department will also refer you to a specialist when appropriate. This referral assures that you have the opportunity for follow-up care with a specialist. All of these measure are taken in an effort to provide you with optimal care, which includes your follow-up. Under all circumstances we always encourage you to contact your private physician who remains a resource for coordinating your care. When calling for follow-up care, please make the office aware that this follow-up is from your recent emergency room visit. If for any reason you are refused follow-up, please contact the [facility] Emergency Department at and asked to speak to the emergency department charge nurse. [facility] [address] [place] [id number] [facility] [address] [place] [id number] Sepsis Event Note (ED) - Evaluation Sepsis Screening Result: No Definite Risk - Focused Exam Vital Signs: Vital Signs Temp Pulse Resp BP Pulse Ox 07/06/20 23:24 90 18 136/67 94 L 07/06/20 21:06 97.8 F 92 18 146/56 H 92 L
[2020-07-06] MEDS ORDERED: Cephalexin 500 MG Cap PO ONE ×2 (23:18→23:25)
[2020-07-06 23:24] VITALS: BP 136/67; PULSE 90
== END 2020-07-06 23:32 | disposition home or self-care (01) ==
LOC: MW.ED 20:50
DX: M62.1 Other rupture of muscle (nontraumatic) (principal); L03.115 Cellulitis of right lower limb; M79.81 Nontraumatic hematoma of soft tissue; I10 Essential (primary) hypertension; J45.909 Unspecified asthma, uncomplicated; F17.210 Nicotine dependence, cigarettes, uncomplicated; E66.9 Obesity, unspecified; Z68.34 Body mass index [BMI] 34.0-34.9, adult; Z79.899 Other long term (current) drug therapy
CPT/HCPCS: 93971; 99283; A9270

== ENCOUNTER 2021-05-10 19:57 | Emergency (ER) | payer SELFPAY ==
[2021-05-10] MEDS ORDERED: Sodium Chloride 0.9% 1,000 ML IV ONE (20:48)
[2021-05-10] MEDS ORDERED: Ketorolac 30 MG/ML SDV IVPUSH ONE (20:50)
[2021-05-10] MEDS ORDERED: Acetaminophen/Butalbital/Caffeine 325-50-40 MG Tab PO ONE (20:50)
[2021-05-10] MEDS ORDERED: diphenhydrAMINE 50 MG/ML SDV IVPUSH ONE (20:50)
[2021-05-10] MEDS ORDERED: Metoclopramide 10 MG/2 ML SDV IVPUSH ONE (20:50)
[2021-05-10 22:07] LABS: BLOOD UREA NITROGEN,BUN 10 mg/dL (7.0-18.0); CARBON DIOXIDE,CO2 26.9 mmol/L (21.0-32.0); CHLORIDE,CL 103 mmol/L (98-107); GLUCOSE RANDOM 92 mg/dL (74-106); SODIUM,NA 136 mmol/L (136-145)
[2021-05-10] MEDS ORDERED: Potassium Chloride 20 MEQ Tab.ER PO ONE (22:16)
[2021-05-10 23:16] VITALS: BP 157/99; PULSE 65
== END 2021-05-10 22:39 | disposition home or self-care (01) ==
LOC: MW.ED 19:57
DX: J44.9 Chronic obstructive pulmonary disease, unspecified (principal); I10 Essential (primary) hypertension; E66.9 Obesity, unspecified; Z68.27 Body mass index [BMI] 27.0-27.9, adult
CPT/HCPCS: 36415; 71045; 80053; 84484; 85025; 87635; 87804; 96374; 96375; 99285; A9270; J1200; J1885; J2765; J7030; U0002

== ENCOUNTER 2023-01-10 11:36 | Emergency (ER) | payer BC ==
[2023-01-10] MEDS ORDERED: Sodium Chloride 0.9% 2.5 ML Syringe FLUSH PRN (11:43)
[2023-01-10] MEDS ORDERED: Sodium Chloride 0.9% 10 ML Syringe FLUSH PRN (11:43)
[2023-01-10] MEDS ORDERED: Albuterol/Ipratropium 3.0-0.5 MG/3 ML Neb Soln NEB STA (11:50)
[2023-01-10] MEDS ORDERED: Ketorolac 30 MG/ML SDV IVPUSH STA (11:51)
[2023-01-10] MEDS ORDERED: methylPREDNISolone Sodium Succinate 125 MG/2 ML SDV IVPUSH STA (11:51)
[2023-01-10 11:54] VITALS: BP 161/93
[2023-01-10 12:05] LABS: BASOPHILS PERCENT AUTO 0.4 % (0.0-1.5); EOSINOPHILS ABSOLUTE AUTO 0.3 K/uL (0.0-0.7); EOSINOPHILS PERCENT AUTO 2.5 % (0.0-7.0); HEMOGLOBIN 16.3 g/dL (12.0-16.0); LYMPHOCYTES ABSOLUTE AUTO 3.6 K/uL (0.6-2.4); LYMPHOCYTES PERCENT AUTO 35.1 % (16.0-40.0); MEAN CORPUSCULAR HEMOGLOBIN 28.6 pg (27.0-32.0); MEAN CORPUSCULAR VOLUME 84.4 fL (80.0-98.0); MONOCYTES ABSOLUTE AUTO 0.4 K/uL (0.0-0.8); MONOCYTES PERCENT AUTO 4.2 % (0.0-15.0); NEUTROPHILS PERCENT AUTO 57.8 % (48.0-80.0); NRBC ABSOLUTE 0 K/uL; PLATELET COUNT,PLT 384 K/uL (150-400); RED BLOOD CELL COUNT 5.69 M/uL (4.30-5.90); WHITE BLOOD CELL COUNT,WBC 10.31 K/uL (4.0-11.0)
[2023-01-10 12:27] LABS: A/G RATIO 1.1 (0.9-1.6); ALBUMIN 4.2 g/dL (3.4-5.0); BILIRUBIN TOTAL 0.3 mg/dL (0.2-1.0); CALCIUM 8.8 mg/dL (8.5-10.1); CARBON DIOXIDE,CO2 25.8 mmol/L (21.0-32.0); CREATININE 0.7 mg/dL (0.6-1.0); EST CRCL DRUG DOSING (CG) 77.77 mL/min; POTASSIUM,K 3.7 mmol/L (3.5-5.1); PROTEIN TOTAL,TP 8.1 g/dL (6.4-8.2)
[2023-01-10 12:30] LABS: MAGNESIUM 2.2 mg/dL (1.8-2.4)
[2023-01-10 12:39] LABS: CORONAVIRUS COVID-19 NAA NEGATIVE (NEGATIVE); INFLUENZA A NAA NEGATIVE (NEGATIVE); INFLUENZA B NAA NEGATIVE (NEGATIVE)
[2023-01-10] MEDS ORDERED: Lidocaine 5% Oint 35.44 GM Tube TOP STA (13:22)
[2023-01-10 14:42] VITALS: PULSE 72
== END 2023-01-10 14:41 | disposition home or self-care (01) ==
LOC: MW.ED 11:36
DX: S29.011A Strain of muscle and tendon of front wall of thorax, initial encounter (principal); J44.1 Chronic obstructive pulmonary disease with (acute) exacerbation; I10 Essential (primary) hypertension; F17.210 Nicotine dependence, cigarettes, uncomplicated; E66.9 Obesity, unspecified; Z68.35 Body mass index [BMI] 35.0-35.9, adult; Z79.899 Other long term (current) drug therapy; Z20.822 Contact with and (suspected) exposure to COVID-19
CPT/HCPCS: 0240U; 36415; 71046; 80053; 83690; 83735; 84484; 85025; 93005; 96374; 96375; 99285; J1885; J2930; J3490; 93010; 99284; J7620-GY

== ENCOUNTER 2023-08-27 13:50 | Emergency (ER) | payer SELFPAY ==
[2023-08-27 17:09] VITALS: BP 124/69; PULSE 74
== END 2023-08-27 15:05 ==
LOC: MW.ED 13:50
DX: I10 Essential (primary) hypertension; J44.9 Chronic obstructive pulmonary disease, unspecified; Z79.899 Other long term (current) drug therapy; E78.00 Pure hypercholesterolemia, unspecified; Z90.49 Acquired absence of other specified parts of digestive tract; Z75.8 Other problems related to medical facilities and other health care
CPT/HCPCS: 99282; 99283

== ENCOUNTER 2023-09-27 00:42 | Emergency (ER) | payer SELFPAY ==
[2023-09-27 00:56] VITALS: BP 175/87; PULSE 74
== END 2023-09-27 01:02 ==
LOC: MW.ED 00:42
DX: Z02.89 Encounter for other administrative examinations (principal); I10 Essential (primary) hypertension; E78.00 Pure hypercholesterolemia, unspecified; J44.9 Chronic obstructive pulmonary disease, unspecified; Z79.899 Other long term (current) drug therapy; Z90.49 Acquired absence of other specified parts of digestive tract; Z75.8 Other problems related to medical facilities and other health care
CPT/HCPCS: 99281; 99283

== ENCOUNTER 2023-10-28 12:35 | Emergency (ER) | payer SELFPAY ==
[2023-10-28 13:13] LABS: BASOPHILS ABSOLUTE AUTO 0.04 K/uL (0.00-0.20); BASOPHILS PERCENT AUTO 0.5 % (0.0-1.0); EOSINOPHILS ABSOLUTE AUTO 0.19 K/uL (0.00-0.45); EOSINOPHILS PERCENT AUTO 2.2 % (0.0-6.0); HEMATOCRIT 42.9 % (37.0-47.0); HEMOGLOBIN 14.4 g/dL (12.0-16.0); IMMATURE GRAN ABSOLUTE AUTO 0.02 K/uL (0.00-0.05); IMMATURE GRAN PERCENT AUTO 0.2 % (0.0-0.4); LYMPHOCYTES PERCENT AUTO 39.2 % (24.0-44.0); MEAN CORPUSCULAR HEMOGLOBIN 27.5 pg (28.0-32.0); MEAN CORPUSCULAR HGB CONC 33.6 g/dL (32.0-36.0); MEAN PLATELET VOLUME 9.5 fL (9.4-12.3); MONOCYTES ABSOLUTE AUTO 0.28 K/uL (0.00-0.80); MONOCYTES PERCENT AUTO 3.2 % (0.0-8.0); NEUTROPHILS ABSOLUTE AUTO 4.74 K/uL (1.80-7.70); NEUTROPHILS PERCENT AUTO 54.7 % (41.0-71.0); PLATELET COUNT,PLT 364 K/uL (150-400); RED BLOOD CELL COUNT 5.23 M/uL (4.10-5.30); WHITE BLOOD CELL COUNT,WBC 8.67 K/uL (3.9-11.3)
[2023-10-28 13:33] LABS: INR 1.05 (0.86-1.11); PTT,PARTIAL THROMBOPLSTIN TIME 30.4 SEC (23.9-30.7)
[2023-10-28 13:49] LABS: MAGNESIUM 1.9 mg/dL (1.8-2.4)
[2023-10-28 13:54] LABS: ALBUMIN 3.5 g/dL (3.4-5.0); BILIRUBIN TOTAL 0.2 mg/dL (0.2-1.0); CALCIUM 8.9 mg/dL (8.5-10.1); CARBON DIOXIDE,CO2 24.8 mmol/L (21.0-32.0); CREATININE 0.6 mg/dL (0.6-1.0); EST CRCL DRUG DOSING (CG) 90.73 mL/min; PROTEIN TOTAL,TP 6.9 g/dL (6.4-8.2)
[2023-10-28 14:31] VITALS: BP 148/87; PULSE 74
== END 2023-10-28 14:30 ==
LOC: MW.ED 12:35
DX: R07.89 Other chest pain (principal); Z02.89 Encounter for other administrative examinations; I10 Essential (primary) hypertension; J45.909 Unspecified asthma, uncomplicated; E66.9 Obesity, unspecified; Z75.8 Other problems related to medical facilities and other health care; Z79.899 Other long term (current) drug therapy; Z90.49 Acquired absence of other specified parts of digestive tract; Z68.35 Body mass index [BMI] 35.0-35.9, adult
CPT/HCPCS: 36415; 71045; 71045-26; 80053; 83690; 83735; 84484; 85025; 85610; 85730; 93005; 99285

== ENCOUNTER 2023-12-03 11:51 | Emergency (ER) | payer SELFPAY | END 2023-12-03 11:57 | disposition left against medical advice (07) | LOC: MW.ED 11:51 | DX: Z53.21 Procedure and treatment not carried out due to patient leaving prior to being seen by health care provider (principal) ==

== ENCOUNTER 2024-01-15 15:01 | Emergency (ER) | payer SELFPAY ==
[2024-01-15 15:50] VITALS: BP 158/92; PULSE 85
[2024-01-15] MEDS: Albuterol 8 GM Inhaler INH ONE (15:53)
[2024-01-15] MEDS: Acetaminophen 325 MG Tab PO ONE (15:53)
[2024-01-15] MEDS: Losartan 25 MG Tab PO STA (15:54)
[2024-01-15] MEDS: Furosemide 20 MG Tab PO ONE (15:55)
[2024-01-15] MEDS: atorvaSTATin 10 MG Tab PO ONE (15:55)
== END 2024-01-15 16:00 | disposition home or self-care (01) ==
LOC: MW.ED 15:01
DX: R51.9 Headache, unspecified (principal); E78.00 Pure hypercholesterolemia, unspecified; I10 Essential (primary) hypertension; J45.909 Unspecified asthma, uncomplicated; E66.9 Obesity, unspecified; Z68.31 Body mass index [BMI] 31.0-31.9, adult; Z90.49 Acquired absence of other specified parts of digestive tract; Z79.899 Other long term (current) drug therapy
CPT/HCPCS: 99284; A9270; 99283

== ENCOUNTER 2024-02-13 09:31 | Emergency (ER) | payer SELFPAY ==
[2024-02-13] MEDS: Albuterol/Ipratropium 3.0-0.5 MG/3 ML Neb Soln NEB ONE (10:18)
[2024-02-13 10:43] LABS: CORONAVIRUS COVID-19 NAA NEGATIVE (NEGATIVE); INFLUENZA A NAA NEGATIVE (NEGATIVE); INFLUENZA B NAA NEGATIVE (NEGATIVE)
[2024-02-13] MEDS: Doxycycline 100 MG Cap PO ONE (11:19)
[2024-02-13 11:21] VITALS: BP 143/72; PULSE 77
== END 2024-02-13 11:20 | disposition home or self-care (01) ==
LOC: MW.ED 09:31
DX: J18.9 Pneumonia, unspecified organism (principal); I10 Essential (primary) hypertension; J45.909 Unspecified asthma, uncomplicated; E66.9 Obesity, unspecified; Z90.49 Acquired absence of other specified parts of digestive tract; Z88.8 Allergy status to other drugs, medicaments and biological substances; Z79.51 Long term (current) use of inhaled steroids; Z79.2 Long term (current) use of antibiotics; Z79.899 Other long term (current) drug therapy; Z75.8 Other problems related to medical facilities and other health care; Z68.30 Body mass index [BMI] 30.0-30.9, adult
CPT/HCPCS: 0240U; 71046; 93005; 94640; 99285; A9270; J7620-GY

== ENCOUNTER 2024-02-16 08:33 | Emergency (ER) | payer SELFPAY ==
[2024-02-16 08:44] VITALS: BP 156/86; PULSE 97
[2024-02-16 08:59] LABS: BASOPHILS ABSOLUTE AUTO 0.04 K/uL (0.00-0.20); BASOPHILS PERCENT AUTO 0.5 % (0.0-1.0); EOSINOPHILS ABSOLUTE AUTO 0.32 K/uL (0.00-0.45); EOSINOPHILS PERCENT AUTO 3.8 % (0.0-6.0); IMMATURE GRAN ABSOLUTE AUTO 0.02 K/uL (0.00-0.05); IMMATURE GRAN PERCENT AUTO 0.2 % (0.0-0.4); LYMPHOCYTES ABSOLUTE AUTO 3.05 K/uL (1.00-4.80); LYMPHOCYTES PERCENT AUTO 36.3 % (24.0-44.0); MEAN CORPUSCULAR HEMOGLOBIN 28.1 pg (28.0-32.0); MEAN CORPUSCULAR HGB CONC 33.3 g/dL (32.0-36.0); MEAN CORPUSCULAR VOLUME 84.3 fL (83.0-99.0); MEAN PLATELET VOLUME 9.6 fL (9.4-12.3); MONOCYTES ABSOLUTE AUTO 0.28 K/uL (0.00-0.80); MONOCYTES PERCENT AUTO 3.3 % (0.0-8.0); NEUTROPHILS PERCENT AUTO 55.9 % (41.0-71.0); PLATELET COUNT,PLT 392 K/uL (150-400); RED BLOOD CELL COUNT 5.34 M/uL (4.10-5.30); WHITE BLOOD CELL COUNT,WBC 8.41 K/uL (3.9-11.3)
[2024-02-16] MEDS: predniSONE 20 MG Tab PO ONE (09:02)
[2024-02-16] MEDS ORDERED: Albuterol/Ipratropium 3.0-0.5 MG/3 ML Neb Soln ONE (09:16)
[2024-02-16] MEDS: Albuterol/Ipratropium 3.0-0.5 MG/3 ML Neb Soln NEB ONE (09:17)
[2024-02-16 09:24] LABS: A/G RATIO 0.7 (0.9-1.6); ALBUMIN 3.1 g/dL (3.4-5.0); BILIRUBIN TOTAL 0.2 mg/dL (0.2-1.0); CALCIUM 8.7 mg/dL (8.5-10.1); CARBON DIOXIDE,CO2 24.8 mmol/L (21.0-32.0); CREATININE 0.8 mg/dL (0.6-1.0); EST CRCL DRUG DOSING (CG) 67.27 mL/min; POTASSIUM,K 3.7 mmol/L (3.5-5.1); PROTEIN TOTAL,TP 7.3 g/dL (6.4-8.2)
== END 2024-02-16 11:36 | disposition home or self-care (01) ==
LOC: MW.ED 08:33
DX: R05.9 Cough, unspecified (principal); R06.02 Shortness of breath; R06.2 Wheezing; I10 Essential (primary) hypertension; J44.89 Other specified chronic obstructive pulmonary disease; E66.9 Obesity, unspecified; Z68.31 Body mass index [BMI] 31.0-31.9, adult; Z88.8 Allergy status to other drugs, medicaments and biological substances; Z90.49 Acquired absence of other specified parts of digestive tract; Z79.51 Long term (current) use of inhaled steroids; Z79.52 Long term (current) use of systemic steroids; Z79.899 Other long term (current) drug therapy; Z75.8 Other problems related to medical facilities and other health care
CPT/HCPCS: 36415; 71046; 80053; 85025; 87428; 94640; 99285; A9270; J7620-GY

== ENCOUNTER 2024-04-02 11:22 | Emergency (ER) | payer SELFPAY ==
[2024-04-02 12:08] VITALS: BP 174/100; PULSE 87
[2024-04-02] MEDS: Ibuprofen 800 MG Tab PO ONE (12:18)
[2024-04-02] MEDS: Acetaminophen 500 MG Tab PO ONE (12:18)
[2024-04-02] MEDS: Lidocaine 4% 1 each Patch TOP STA (12:34)
== END 2024-04-02 13:27 | disposition home or self-care (01) ==
LOC: MW.ED 11:22
DX: M25.511 Pain in right shoulder (principal); M25.561 Pain in right knee; I10 Essential (primary) hypertension; J45.909 Unspecified asthma, uncomplicated; E78.00 Pure hypercholesterolemia, unspecified; E66.9 Obesity, unspecified; Z75.8 Other problems related to medical facilities and other health care; Z88.8 Allergy status to other drugs, medicaments and biological substances; Z79.899 Other long term (current) drug therapy; Z90.49 Acquired absence of other specified parts of digestive tract; Z68.31 Body mass index [BMI] 31.0-31.9, adult; W19.XXXA Unspecified fall, initial encounter
CPT/HCPCS: 73030; 73564; 99283; A9270

== ENCOUNTER 2024-05-16 10:44 | Emergency (ER) | payer SELFPAY ==
[2024-05-16 12:02] LABS: BASOPHILS ABSOLUTE AUTO 0.07 K/uL (0.00-0.20); BASOPHILS PERCENT AUTO 0.8 % (0.0-1.0); EOSINOPHILS ABSOLUTE AUTO 0.17 K/uL (0.00-0.45); HEMATOCRIT 50.1 % (37.0-47.0); HEMOGLOBIN 17.2 g/dL (12.0-16.0); IMMATURE GRAN ABSOLUTE AUTO 0.01 K/uL (0.00-0.05); IMMATURE GRAN PERCENT AUTO 0.1 % (0.0-0.4); LYMPHOCYTES ABSOLUTE AUTO 3.32 K/uL (1.00-4.80); LYMPHOCYTES PERCENT AUTO 39.3 % (24.0-44.0); MEAN CORPUSCULAR HEMOGLOBIN 27.6 pg (28.0-32.0); MEAN CORPUSCULAR HGB CONC 34.3 g/dL (32.0-36.0); MEAN CORPUSCULAR VOLUME 80.3 fL (83.0-99.0); MONOCYTES ABSOLUTE AUTO 0.25 K/uL (0.00-0.80); NEUTROPHILS ABSOLUTE AUTO 4.63 K/uL (1.80-7.70); NEUTROPHILS PERCENT AUTO 54.8 % (41.0-71.0); PLATELET COUNT,PLT 358 K/uL (150-400); RED BLOOD CELL COUNT 6.24 M/uL (4.10-5.30); WHITE BLOOD CELL COUNT,WBC 8.45 K/uL (3.9-11.3)
[2024-05-16] MEDS: Sodium Chloride 0.9% 1,000 ML IV ONE (12:07)
[2024-05-16] MEDS: LORazepam 2 MG/ML SDV IVPUSH ONE (12:07)
[2024-05-16 12:13] VITALS: BP 138/89; PULSE 68
[2024-05-16 12:42] LABS: A/G RATIO 0.9 (0.9-1.6); ACETAMINOPHEN <2.0 ug/mL; ALANINE AMINOTRANSFERASE,ALT 32 IU/L (14-63); ALBUMIN 3.8 g/dL (3.4-5.0); ALKALINE PHOSPHATASE 138 U/L (46-116); ASPARTATE AMNIOTRANSFERASE,AST 21 IU/L (15-37); BILIRUBIN TOTAL 0.3 mg/dL (0.2-1.0); BLOOD UREA NITROGEN,BUN 9 mg/dL (7.0-18.0); CALCIUM 9.4 mg/dL (8.5-10.1); CARBON DIOXIDE,CO2 25.8 mmol/L (21.0-32.0); CHLORIDE,CL 103 mmol/L (98-107); CREATININE 0.6 mg/dL (0.6-1.0); EST CRCL DRUG DOSING (CG) 105.45 mL/min; ETHANOL BLOOD MEDICAL 80 mg/dL; GLUCOSE RANDOM 107 mg/dL (74-106); MAGNESIUM 2.1 mg/dL (1.8-2.4); POTASSIUM,K 3.4 mmol/L (3.5-5.1); PROTEIN TOTAL,TP 8.1 g/dL (6.4-8.2); SODIUM,NA 144 mmol/L (136-145); TSH ULTRASENSITIVE 1.74 uIU/mL (0.36-3.74)
[2024-05-16 12:52] LABS: ESTIMATED GFR 107 mL/min (>60)
[2024-05-16 12:53] LABS: AMPHETAMINES SCREEN, URINE NEGATIVE (CUTOFF=500); BARBITURATE SCREEN,URINE NEGATIVE (CUTOFF=200); BENZODIAZEPINES SCREEN,URINE NEGATIVE (CUTOFF=150); BUPRENORPHINE SCREEN,URINE NEGATIVE (CUTOFF=10); METHADONE SCREEN, URINE NEGATIVE (CUTOFF=200); METHAMPHETAMINES SCREEN, URINE NEGATIVE (CUTOFF=500); OXYCODONE SCREEN,URINE NEGATIVE (CUT0FF=100); PCP SCREEN,URINE NEGATIVE (CUTOFF=25); THC SCREEN,URINE 20 NG/ML NEGATIVE (CUTOFF=50)
== END 2024-05-16 15:54 ==
LOC: MW.ED 10:44
DX: R45.851 Suicidal ideations (principal); I10 Essential (primary) hypertension; J45.909 Unspecified asthma, uncomplicated; E66.9 Obesity, unspecified; Z75.8 Other problems related to medical facilities and other health care; Z88.8 Allergy status to other drugs, medicaments and biological substances; Z79.899 Other long term (current) drug therapy; Z90.49 Acquired absence of other specified parts of digestive tract; Z68.37 Body mass index [BMI] 37.0-37.9, adult
CPT/HCPCS: 36415; 71045; 80053; 80143; 80179; 80305; 80307; 81025; 83735; 84443; 85025; 87428; 93005; 96361; 96374; 99285; J2060; J7030

== ENCOUNTER 2024-08-21 13:44 | Emergency (ER) | payer MEDICAID ==
[2024-08-21 15:15] VITALS: BP 175/88; PULSE 76
[2024-08-21] MEDS: Sodium Chloride 0.9% 1,000 ML IV ONE (15:37)
[2024-08-21 15:50] LABS: BASOPHILS ABSOLUTE AUTO 0.06 K/uL (0.00-0.20); BASOPHILS PERCENT AUTO 0.6 % (0.0-1.0); EOSINOPHILS ABSOLUTE AUTO 0.24 K/uL (0.00-0.45); EOSINOPHILS PERCENT AUTO 2.2 % (0.0-6.0); HEMATOCRIT 41.9 % (37.0-47.0); HEMOGLOBIN 13.8 g/dL (12.0-16.0); IMMATURE GRAN ABSOLUTE AUTO 0.09 K/uL (0.00-0.05); IMMATURE GRAN PERCENT AUTO 0.8 % (0.0-0.4); LYMPHOCYTES ABSOLUTE AUTO 3.87 K/uL (1.00-4.80); LYMPHOCYTES PERCENT AUTO 35.6 % (24.0-44.0); MEAN CORPUSCULAR HGB CONC 32.9 g/dL (32.0-36.0); MEAN CORPUSCULAR VOLUME 85.2 fL (83.0-99.0); MEAN PLATELET VOLUME 9.7 fL (9.4-12.3); MONOCYTES ABSOLUTE AUTO 0.46 K/uL (0.00-0.80); MONOCYTES PERCENT AUTO 4.2 % (0.0-8.0); NEUTROPHILS ABSOLUTE AUTO 6.16 K/uL (1.80-7.70); NEUTROPHILS PERCENT AUTO 56.6 % (41.0-71.0); PLATELET COUNT,PLT 301 K/uL (150-400); RED BLOOD CELL COUNT 4.92 M/uL (4.10-5.30); WHITE BLOOD CELL COUNT,WBC 10.88 K/uL (3.9-11.3)
[2024-08-21 16:16] LABS: A/G RATIO 1.1 (0.9-1.6); ALBUMIN 3.6 g/dL (3.4-5.0); BILIRUBIN TOTAL 0.3 mg/dL (0.2-1.0); CALCIUM 8.4 mg/dL (8.5-10.1); CARBON DIOXIDE,CO2 26.3 mmol/L (21.0-32.0); CREATININE 0.7 mg/dL (0.6-1.0); EST CRCL DRUG DOSING (CG) 87.01 mL/min; POTASSIUM,K 4.1 mmol/L (3.5-5.1)
== END 2024-08-21 16:39 | disposition home or self-care (01) ==
LOC: MW.ED 13:44
DX: R20.2 Paresthesia of skin (principal); Z75.3 Unavailability and inaccessibility of health-care facilities; I10 Essential (primary) hypertension; J45.909 Unspecified asthma, uncomplicated; E66.9 Obesity, unspecified; Z68.42 Body mass index [BMI] 45.0-49.9, adult; Z90.49 Acquired absence of other specified parts of digestive tract; Z88.8 Allergy status to other drugs, medicaments and biological substances
CPT/HCPCS: 36415; 71045; 80053; 83735; 85025; 93005; 96360; 99284; J7030; 93010

== ENCOUNTER 2025-01-08 09:24 | Inpatient (IN) | payer MEDICAID ==
[2025-01-08 10:24] LABS: BASOPHILS ABSOLUTE AUTO 0.06 K/uL (0.00-0.20); BASOPHILS PERCENT AUTO 0.4 % (0.0-1.0); EOSINOPHILS ABSOLUTE AUTO 0.34 K/uL (0.00-0.45); EOSINOPHILS PERCENT AUTO 2.5 % (0.0-6.0); IMMATURE GRAN ABSOLUTE AUTO 0.08 K/uL (0.00-0.05); IMMATURE GRAN PERCENT AUTO 0.6 % (0.0-0.4); LYMPHOCYTES ABSOLUTE AUTO 2.17 K/uL (1.00-4.80); LYMPHOCYTES PERCENT AUTO 16.2 % (24.0-44.0); MEAN PLATELET VOLUME 9.9 fL (9.4-12.3); MONOCYTES ABSOLUTE AUTO 0.29 K/uL (0.00-0.80); MONOCYTES PERCENT AUTO 2.2 % (0.0-8.0); NEUTROPHILS ABSOLUTE AUTO 10.42 K/uL (1.80-7.70); NEUTROPHILS PERCENT AUTO 78.1 % (41.0-71.0); NRBC ABSOLUTE 0.00 K/uL (0.00-0.02); NRBC PERCENT 0.0 /100WBC (0.0-0.2); PLATELET COUNT,PLT 322 K/uL (150-400); RED BLOOD CELL COUNT 5.00 M/uL (4.10-5.30); WHITE BLOOD CELL COUNT,WBC 13.36 K/uL (3.9-11.3)
[2025-01-08 10:40] LABS: A/G RATIO 0.8 (0.9-1.6); ALANINE AMINOTRANSFERASE,ALT 34.0 IU/L (14-63); ASPARTATE AMNIOTRANSFERASE,AST 29.0 IU/L (15-37); BILIRUBIN TOTAL 0.6 mg/dL (0.2-1.0); BLOOD UREA NITROGEN,BUN 5.0 mg/dL (7.0-18.0); CARBON DIOXIDE,CO2 27.5 mmol/L (21.0-32.0); CHLORIDE,CL 102.0 mmol/L (98-107); CREATININE 0.7 mg/dL (0.6-1.0); EST CRCL DRUG DOSING (CG) 76.0 mL/min; GLUCOSE RANDOM 132.0 mg/dL (74-106); PROTEIN TOTAL,TP 7.6 g/dL (6.4-8.2); SODIUM,NA 142.0 mmol/L (136-145)
[2025-01-08 10:42] LABS: ESTIMATED GFR 103.0 mL/min (>60); POTASSIUM,K 2.4 mmol/L (3.5-5.1)
[2025-01-08 11:13] LABS: PRO B-TYPE NATRIUR PEPT,BNPPRO 36.0 pg/mL (0-125)
[2025-01-08] MEDS: cefTRIAXone 1 GM in Water For Injection, Sterile 10 ML IVPUSH ONE (11:21)
[2025-01-08 11:32] LABS: LACTIC ACID 1.7 mmol/L (0.4-2.0)
[2025-01-08] MEDS ORDERED: Sodium Chloride 0.9% 10 ML Syringe FLUSH PRN (13:47)
[2025-01-08] MEDS ORDERED: Sodium Chloride 0.9% 2.5 ML Syringe FLUSH PRN (13:47)
[2025-01-08] MEDS ORDERED: Albuterol 0.083% 2.5 MG/3 ML Neb Soln NEB PRN (13:47)
[2025-01-08] MEDS ORDERED: Ondansetron 4 MG/2 ML SDV IVPUSH PRN (13:47)
[2025-01-08] MEDS ORDERED: guaiFENesin 100 MG/5 ML Soln 5 ML UD Cup PO PRN (13:52)
[2025-01-08] MEDS: methylPREDNISolone Sodium Succinate 40 MG/1 ML SDV IVPUSH SCH (15:08)
[2025-01-08] MEDS: Potassium Chloride 10% 20 MEQ/15 ML Soln 15 ML UD Cup PO SCH (15:09)
[2025-01-09 06:02] LABS: BASOPHILS ABSOLUTE AUTO 0.03 K/uL (0.00-0.20); BASOPHILS PERCENT AUTO 0.2 % (0.0-1.0); EOSINOPHILS ABSOLUTE AUTO 0.01 K/uL (0.00-0.45); EOSINOPHILS PERCENT AUTO 0.1 % (0.0-6.0); IMMATURE GRAN ABSOLUTE AUTO 0.14 K/uL (0.00-0.05); IMMATURE GRAN PERCENT AUTO 1.1 % (0.0-0.4); LYMPHOCYTES ABSOLUTE AUTO 2.04 K/uL (1.00-4.80); LYMPHOCYTES PERCENT AUTO 15.4 % (24.0-44.0); MEAN PLATELET VOLUME 9.8 fL (9.4-12.3); MONOCYTES ABSOLUTE AUTO 0.22 K/uL (0.00-0.80); MONOCYTES PERCENT AUTO 1.7 % (0.0-8.0); NEUTROPHILS ABSOLUTE AUTO 10.84 K/uL (1.80-7.70); NEUTROPHILS PERCENT AUTO 81.5 % (41.0-71.0); NRBC ABSOLUTE 0.00 K/uL (0.00-0.02); NRBC PERCENT 0.0 /100WBC (0.0-0.2); PLATELET COUNT,PLT 292 K/uL (150-400); RED BLOOD CELL COUNT 4.28 M/uL (4.10-5.30); WHITE BLOOD CELL COUNT,WBC 13.28 K/uL (3.9-11.3)
[2025-01-09 06:28] LABS: BLOOD UREA NITROGEN,BUN 11.0 mg/dL (7.0-18.0); CARBON DIOXIDE,CO2 26.3 mmol/L (21.0-32.0); CHLORIDE,CL 110.0 mmol/L (98-107); CREATININE 0.6 mg/dL (0.6-1.0); EST CRCL DRUG DOSING (CG) 88.67 mL/min; GLUCOSE RANDOM 149.0 mg/dL (74-106); POTASSIUM,K 3.6 mmol/L (3.5-5.1); SODIUM,NA 145.0 mmol/L (136-145)
[2025-01-09 06:42] LABS: ESTIMATED GFR 107.0 mL/min (>60)
[2025-01-09 08:32] VITALS: BP 158/76; PULSE 68
[2025-01-09] MEDS: cefTRIAXone 1 GM in Water For Injection, Sterile 10 ML IVPUSH SCH (08:44)
[2025-01-09] MEDS: Potassium Chloride 10% 20 MEQ/15 ML Soln 15 ML UD Cup PO ONE (12:59)
[2025-01-10 08:07] LABS: BORDETELLA PARAPERT IS1001 Not Detected (Not Detected)
== END 2025-01-09 10:05 | disposition home or self-care (01) | DRG 640 ==
LOC: MW.ED 09:24 → MW.MS 13:23
PROVIDERS: ADMIT Internal Medicine; ATTEND Internal Medicine
DX: E87.6 Hypokalemia (principal); J18.9 Pneumonia, unspecified organism; J44.1 Chronic obstructive pulmonary disease with (acute) exacerbation; J44.0 Chronic obstructive pulmonary disease with (acute) lower respiratory infection; E78.00 Pure hypercholesterolemia, unspecified; I10 Essential (primary) hypertension; F41.9 Anxiety disorder, unspecified; F32.A Depression, unspecified; E66.9 Obesity, unspecified; Z96.659 Presence of unspecified artificial knee joint; E83.42 Hypomagnesemia; Z68.38 Body mass index [BMI] 38.0-38.9, adult; Z90.49 Acquired absence of other specified parts of digestive tract; Z98.84 Bariatric surgery status; Z90.710 Acquired absence of both cervix and uterus
CPT/HCPCS: 36415; 71045; 71045-26; 80048; 80053; 82947; 83605; 83735; 83880; 85025; 87040; 87428-QW; 87486; 87581; 87633; 93005; 93010; 96361; 96365; 96366; 96368; 96375; 99285; 99285-25; A9270-GY; J0456; J0696; J1650; J2919; J3480; J7030; J7050

== ENCOUNTER 2025-03-07 06:46 | Day surgery (SDC) | payer MEDICAID ==
[2025-03-07] MEDS: Lactated Ringers 1,000 ML IV SCH (07:15)
[2025-03-07] MEDS ORDERED: fentaNYL 100 MCG/2 ML SDV ONE (07:31)
[2025-03-07] MEDS ORDERED: Propofol 200 MG/20 ML SDV ONE ×3 (07:31→08:02)
[2025-03-07] MEDS ORDERED: dexmedeTOMIDine HCl 200 MCG/2 ML SDV ONE (07:32)
[2025-03-07] MEDS ORDERED: ceFAZolin 2 GM in Water For Injection, Sterile 20 ML IVPUSH ONE (08:00)
[2025-03-07 10:11] VITALS: BP 176/97; PULSE 66
== END 2025-03-07 09:05 | disposition home or self-care (01) ==
LOC: MW.SDS 06:46
PROVIDERS: ATTEND Orthopaedic Surgery
DX: G56.03 Carpal tunnel syndrome, bilateral upper limbs (principal); E11.9 Type 2 diabetes mellitus without complications; I10 Essential (primary) hypertension; E66.01 Morbid (severe) obesity due to excess calories; F17.200 Nicotine dependence, unspecified, uncomplicated; Z88.8 Allergy status to other drugs, medicaments and biological substances; Z68.41 Body mass index [BMI] 40.0-44.9, adult; Z79.899 Other long term (current) drug therapy
CPT/HCPCS: 64721; J0665; J0690; J2704; J3010; J7120; 01810